=== PATIENT | female | born 1945 ===

== ENCOUNTER 2017-10-22 14:40 | Inpatient (IN) | payer MEDICARE ==
[2017-10-22] MEDS ORDERED: Sodium Chloride 0.9% 1,000 ML IV STA (15:54)
--- NOTE | 2017-10-22 15:57 | C.PDOC ---
History Of Present Illness 72 y/o F c PMHx HTN, hysterectomy p/w abdominal pain x 5 days. Pain is lower abdomen, severe, associated with nausea and fever to 102 at home. Patient was seen at [place] [facility] 4 days ago and found to have colitis and discharged on Cipro/ Flagyl but she states it has only worsened in severity. Denies chills, numbness , weakness, rash, chest pain. Time Seen by Provider: 10/22/17 15:40 Chief Complaint (Nursing): Abdominal Pain Past Medical History Vital Signs: Last Vital Signs Temp 99 F 10/22/17 14:58 Pulse 68 10/22/17 17:30 Resp 18 10/22/17 17:30 BP 159/77 H 10/22/17 17:30 Pulse Ox 96 10/22/17 17:30 - Medical History PMH: Depression, HTN Family History: States: No Known Family Hx - Social History Hx Alcohol Use: Yes Hx Substance Use: No - Immunization History Hx Tetanus Toxoid Vaccination: No Hx Influenza Vaccination: No Hx Pneumococcal Vaccination: No Review Of Systems Except As Marked, All Systems Reviewed And Found Negative. Cardiovascular: Negative for: Chest Pain Respiratory: Negative for: Shortness of Breath Physical Exam - Physical Exam Additional Physical Exam Comments: Constitutional: No acute distress. Head: Normocephalic. Atraumatic. Eyes: PERRL. ENT: Moist mucous membranes. Neck: Supple. Cardiovascular: Regular rate. Radial pulse 2+ bilaterally. Chest: No tenderness. Respiratory: Clear to auscultation bilaterally. GI: Lower abdominal tenderness with guarding. Back: No CVA tenderness. Musculoskeletal: No tenderness or swelling of extremities. Skin: No rash. Neurologic: Alert, no focal deficit. ED Course And Treatment - Laboratory Results Result Diagrams: 10/22/17 16:07 10/22/17 16:07 O2 Sat by Pulse Oximetry: 98 Medical Decision Making Medical Decision Making: Morphine and Zofran, will require admission for failure of outpatient therapy. EKG sinus rhythm 60 bpm, no ST/T wave changes. CXR no acute disease. Disposition Discussed With : Archana Hamlin - Disposition Disposition: HOSPITALIZED Disposition Time: 17:20 Condition: GUARDED - Clinical Impression Clinical Impression: Colitis, Failure of outpatient treatment
[2017-10-22 16:18] LABS: BASO % 0.3 % (0.0-2.0); EOS # 0.1 K/uL (0.0-0.7); EOS % 0.4 % (0.0-4.0); HEMOGLOBIN 13.4 g/dL (11.0-16.0); LYMPH % 8.6 % (20.0-40.0); MEAN CELL VOLUME 90.8 fL (81.0-99.0); MEAN CORPUSCULAR HEMOGLOBIN 31.9 pg (27.0-31.0); MEAN CORPUSCULAR HGB CONC 35.1 g/dL (33.0-37.0); MEAN PLATELET VOLUME 8.8 fL (7.2-11.7); MONO # 0.9 K/uL (0.0-0.8); NEUT # 9.5 K/uL (1.8-7.0); NEUT % 82.7 % (50.0-75.0); PLATELET COUNT 249 K/uL (130-400); RED CELL DISTRIBUTION WIDTH 13.3 % (11.5-14.5); WHITE BLOOD COUNT 11.5 K/uL (4.8-10.8)
[2017-10-22] MEDS ORDERED: Sodium Chloride 0.9% 1,000 ML ONE (16:21)
[2017-10-22] MEDS ORDERED: Morphine 4 MG/ML VIAL ONE ×2 (16:21→17:37)
[2017-10-22 16:25] LABS: ALB/GLOB RATIO 1.3 (1.0-2.1); ALBUMIN 4.3 g/dL (3.5-5.0); ALT/SGPT 25 U/L (9-52); AST/SGOT 27 U/L (14-36); BLOOD UREA NITROGEN 18 mg/dL (7-17); CALCIUM 9.7 mg/dl (8.6-10.4); GFR AFRICAN-AMERICAN > 60; GFR NON-AFRICAN AMERICAN > 60; LIPASE 61 U/L (23-300)
--- NOTE | 2017-10-22 16:38 | RAD ---
HISTORY: fever, abd pain COMPARISON: No prior. FINDINGS: LUNGS: The lungs are hyperinflated and there is peribronchial thickening with chronic changes in both lungs. No focal consolidation. PLEURA: No significant pleural effusion identified, no pneumothorax apparent. CARDIOVASCULAR: Normal. OSSEOUS STRUCTURES: No significant abnormalities. VISUALIZED UPPER ABDOMEN: Normal. OTHER FINDINGS: None. IMPRESSION: No active pulmonary disease. COPD.
[2017-10-22 16:58] LABS: SQUAMOUS EPITHIAL < 1 /hpf (0-5); URINE BILIRUBIN NEGATIVE (NEGATIVE); URINE BLOOD NEGATIVE (NEGATIVE); URINE CALCIUM OXALATE CRYSTALS OCC /hpf (<OCC); URINE CLARITY Clear (Clear); URINE COLOR Amber (YELLOW); URINE GLUCOSE (UA) NORMAL (Normal); URINE LEUKOCYTE ESTERASE NEG Leu/uL (Negative); URINE PROTEIN NEGATIVE (NEGATIVE)
[2017-10-22] MEDS ORDERED: Ciprofloxacin 400mg/200ml D5W 400 MG/200 ML BAG IVPB STA (16:59)
[2017-10-22 17:01] LABS: LYMPHOCYTE 5 % (20-40); MONOCYTE 4 % (0-10); NEUTROPHIL 91 % (50-75); PLATELET ESTIMATE NORMAL (NORMAL); TOTAL CELLS COUNTED 100
[2017-10-22] MEDS ORDERED: Ciprofloxacin 400mg/200ml D5W 400 MG/200 ML BAG IVPB ONE (17:21)
[2017-10-22] MEDS ORDERED: Potassium Chloride 20 mEq 100 ML ONE (17:21)
[2017-10-22] MEDS ORDERED: Iohexol 240 (50 ml) PO ONE (18:40)
--- NOTE | 2017-10-22 18:44 | CP.PCM.HP ---
Addendum entered and electronically signed by Keven Valentine 10/22/17 21:05: Colitis associated with diarrhea * F/u stool culture, Ova & Parasite and fecal leukocytes Original Note: <Keven Valentine - Last Filed: 10/22/17 20:33> History of Present Illness - History of Present Illness History of Present Illness: CC: Abdominal Pain HPI: Patient is a 72 year old female with past medical HTN and depression, who presents to the ED with her daughter with complaints of abdominal pain that started 2 weeks ago. Patient reports that her abdominal pain originated from the epigastric region and radiated to the lower abdomen B/ L (R>L). Patient describes her pain as a 10/10 (" feels like I am giving " ) with intermittent radiation to her lower back. Patient admits to associated symptoms of one episodes of vomit, intermittent nausea, 2 days of diarrhea, fever ( Tmax: 102 at home), chills and lower abdominal pressure upon urination that started on wednesday (10/17/17). Patient denies hematochezia, hematuria, recent travels, recent sickness or sick contact. Patient was seen on Wednesday, at [facility] and was discharge with the diagnosis of colitis with prescription for Cipro and flagyl. Patient states that her pain is consistent with no relief, hence the second ER visit. Code Status: Full code PMD: Dr. Archer PMHx: HTN and depression FHx: Father and Paternal Aunt: DM Sister: Ovarian cancer Medications: Norvasc 5mg PO daily, Lexpro 20mg PO daily Allergies: NKDA Social Hx: Lives alone, retired homemaker. Denies of current or former use of tobacco, alcohol or illicit drug Hilarioughlorenzo: Jyotsna: [phone] Present on Admission - Present on Admission Any Indicators Present on Admission: No Review of Systems - Constitutional Constitutional: Chills, Fever. absent: Fatigue, Headache, Increased Appetite, Weakness - EENT Ears: absent: Dizziness - Cardiovascular Cardiovascular: absent: Chest Pain, Diaphoresis, Dyspnea, Lightheadedness - Respiratory Respiratory: absent: Dyspnea, Dyspnea on Exertion, Wheezing, Chest Congestion - Gastrointestinal Gastrointestinal: Abdominal Pain, Diarrhea, Nausea, Vomiting. absent: Dyspepsia , Dysphagia, Hematemesis, Hematochezia - Genitourinary Genitourinary: Dysuria. absent: Difficulty Urinating, Flank Pain, Urinary Frequency, Urinary Hesitance, Voiding Freq/Small Amts - Musculoskeletal Musculoskeletal: absent: Back Pain - Psychiatric Psychiatric: Change in Appetite Past Patient History - Infectious Disease Hx of Infectious Diseases: None - Past Social History Smoking Status: Never Smoked - CARDIAC Hx Hypertension: Yes - PSYCHIATRIC Hx Depression: Yes Hx Substance Use: No - SURGICAL HISTORY Hx Hysterectomy: Yes - ANESTHESIA Hx Anesthesia: Yes Hx Anesthesia Reactions: No Hx Malignant Hyperthermia: No Meds Allergies/Adverse Reactions: Allergies Allergy/AdvReac Type Severity Reaction Status Date / Time No Known Allergies Allergy Verified 10/22/17 15:02 Physical Exam - Constitutional Appears: No Acute Distress - Head Exam Head Exam: ATRAUMATIC, NORMAL INSPECTION - Eye Exam Eye Exam: EOMI, Normal appearance - ENT Exam ENT Exam: Mucous Membranes Dry - Respiratory Exam Respiratory Exam: Clear to Auscultation Bilateral, NORMAL BREATHING PATTERN. absent: Prolonged Expiratory Phase, Rhonchi, Wheezes, Respiratory Distress - Cardiovascular Exam Cardiovascular Exam: REGULAR RHYTHM, +S1, +S2. absent: Systolic Murmur - GI/Abdominal Exam GI & Abdominal Exam: Guarding, Normal Bowel Sounds, Tenderness. absent: Diminished Bowel Sounds, Distended, Firm, Hyperactive Bowel Sounds, Hypoactive Bowel Sounds, Organomegaly Additional comments: Tenderness and guarding in the epigastric and lower abdominal pain (Right> Left) - Extremities Exam Extremities exam: Positive for: normal inspection. Negative for: calf tenderness - Neurological Exam Neurological exam: Alert, Oriented x3 - Psychiatric Exam Psychiatric exam: Normal Affect - Skin Skin Exam: Normal Color Results - Vital Signs Recent Vital Signs: Last Vital Signs Temp 99 F 10/22/17 14:58 Pulse 68 10/22/17 17:30 Resp 18 10/22/17 17:30 BP 159/77 H 10/22/17 17:30 Pulse Ox 98 10/22/17 17:40 - Labs Result Diagrams: 10/22/17 16:07 10/22/17 16:07 Labs: Laboratory Results - last 24 hr 10/22/17 10/22/17 10/22/17 16:07 16:07 16:38 WBC 11.5 H RBC 4.20 Hgb 13.4 Hct 38.1 MCV 90.8 MCH 31.9 H MCHC 35.1 RDW 13.3 Plt Count 249 MPV 8.8 Neut % (Auto) 82.7 H Lymph % (Auto) 8.6 L [place] % (Auto) 8.0 Eos % (Auto) 0.4 Baso % (Auto) 0.3 Neut # (Auto) 9.5 H Lymph # (Auto) 1.0 [place] # (Auto) 0.9 H Eos # (Auto) 0.1 Baso # (Auto) 0.0 Neutrophils % (Manual) 91 H Lymphocytes % (Manual) 5 L Monocytes % (Manual) 4 Platelet Estimate Normal RBC Morphology Normal Sodium 142 Potassium 3.0 L Chloride 98 Carbon Dioxide 32 H Anion Gap 15 BUN 18 H Creatinine 0.6 L Est GFR ( Amer) > 60 Est GFR (Non-Af Amer) > 60 Random Glucose 120 H Calcium 9.7 Total Bilirubin 0.9 AST 27 ALT 25 Alkaline Phosphatase 101 Total Protein 7.6 Albumin 4.3 Globulin 3.3 Albumin/Globulin Ratio 1.3 Lipase 61 Urine Color Ariela Urine Clarity Clear Urine pH 5.0 Ur Specific [place] 1.017 Urine Protein Negative Urine Glucose (UA) Normal Urine Ketones Negative Urine Blood Negative Urine Nitrate Positive H Urine Bilirubin Negative Urine Urobilinogen 4.0 H Ur Leukocyte Esterase Neg Urine WBC (Auto) 9 H Urine RBC (Auto) 5 H Ur Squamous Epith Cells < 1 Calcium Oxalate Crystal Occ H Assessment & Plan (1) Colitis Assessment and Plan: Imaging/Labs: * CT abdomen/Pelvis with contrast: Nonspecific colitis involving distal descending and rectosigmoid colon. Mural thickening of gastric antrum common nonspecific. Consider follow-up with upper endoscopy. No other significant abnormality. * F/u CT abdomen/Pelvis with PO contrast * Leukocytois Medications: * Cipro 400mg IV Q12H * Flagyl 500mg PO IV Q8H * Florastor 250mg PO BID * D5W 1/2 NS KCl 20meq * Morphine 2mg IV Q4H PRN Status: Acute (2) Hypertension Assessment and Plan: Home medication: Norvasc 5mg PO daily Will resume if BP becomes uncontrolled Status: Acute (3) Hypokalemia Assessment and Plan: On admission: 3.0 Mg 2+ WNL D5W 1/2 NS KCl 20meq X2 bags Continue to monitor with repeat CMP Status: Acute (4) Prophylactic measure Assessment and Plan: DVT: Lovenox 30mg SC daily All plans and management discussed with Dr. Gatica Status: Acute <ErwinMarichuy jernigan V - Last Filed: 10/23/17 14:21> Results - Vital Signs Recent Vital Signs: Last Vital Signs Temp 98.6 F 10/23/17 08:31 Pulse 73 10/23/17 08:31 Resp 20 10/23/17 08:31 BP 126/56 L 10/23/17 08:31 Pulse Ox 96 10/23/17 08:31 - Labs Result Diagrams: 10/23/17 06:41 10/23/17 06:41 Labs: Laboratory Results - last 24 hr 10/22/17 10/22/17 10/22/17 16:07 16:07 16:07 WBC 11.5 H RBC 4.20 Hgb 13.4 Hct 38.1 MCV 90.8 MCH 31.9 H MCHC 35.1 RDW 13.3 Plt Count 249 MPV 8.8 Neut % (Auto) 82.7 H Lymph % (Auto) 8.6 L [place] % (Auto) 8.0 Eos % (Auto) 0.4 Baso % (Auto) 0.3 Neut # (Auto) 9.5 H Lymph # (Auto) 1.0 [place] # (Auto) 0.9 H Eos # (Auto) 0.1 Baso # (Auto) 0.0 Neutrophils % (Manual) 91 H Band Neutrophils % Lymphocytes % (Manual) 5 L Reactive Lymphs % Monocytes % (Manual) 4 Platelet Estimate Normal RBC Morphology Normal Sodium 142 Potassium 3.0 L Chloride 98 Carbon Dioxide 32 H Anion Gap 15 BUN 18 H Creatinine 0.6 L Est GFR ( Amer) > 60 Est GFR (Non-Af Amer) > 60 Random Glucose 120 H Calcium 9.7 Magnesium 2.2 Total Bilirubin 0.9 AST 27 ALT 25 Alkaline Phosphatase 101 Total Protein 7.6 Albumin 4.3 Globulin 3.3 Albumin/Globulin Ratio 1.3 Lipase 61 Urine Color Urine Clarity Urine pH Ur Specific [place] Urine Protein Urine Glucose (UA) Urine Ketones Urine Blood Urine Nitrate Urine Bilirubin Urine Urobilinogen Ur Leukocyte Esterase Urine WBC (Auto) Urine RBC (Auto) Ur Squamous Epith Cells Calcium Oxalate Crystal 10/22/17 10/23/17 10/23/17 16:38 06:41 06:41 WBC 9.6 RBC 3.72 L Hgb 11.5 Hct 33.5 L MCV 90.0 MCH 30.9 MCHC 34.3 RDW 13.3 Plt Count 226 MPV 9.0 Neut % (Auto) 82.8 H Lymph % (Auto) 6.8 L [place] % (Auto) 9.6 Eos % (Auto) 0.5 Baso % (Auto) 0.3 Neut # (Auto) 8.0 H Lymph # (Auto) 0.7 L [place] # (Auto) 0.9 H Eos # (Auto) 0.0 Baso # (Auto) 0.0 Neutrophils % (Manual) 78 H Band Neutrophils % 5 H Lymphocytes % (Manual) 7 L Reactive Lymphs % 1 H Monocytes % (Manual) 9 Platelet Estimate Normal RBC Morphology Normal Sodium 139 Potassium 3.1 L Chloride 102 Carbon Dioxide 29 Anion Gap 11 BUN 7 Creatinine 0.4 L Est GFR ( Amer) > 60 Est GFR (Non-Af Amer) > 60 Random Glucose 121 H Calcium 8.1 L Magnesium Total Bilirubin 0.4 AST 16 ALT 27 Alkaline Phosphatase 86 Total Protein 5.5 L Albumin 2.9 L D Globulin 2.6 Albumin/Globulin Ratio 1.1 Lipase Urine Color Ariela Urine Clarity Clear Urine pH 5.0 Ur Specific [place] 1.017 Urine Protein Negative Urine Glucose (UA) Normal Urine Ketones Negative Urine Blood Negative Urine Nitrate Positive H Urine Bilirubin Negative Urine Urobilinogen 4.0 H Ur Leukocyte Esterase Neg Urine WBC (Auto) 9 H Urine RBC (Auto) 5 H Ur Squamous Epith Cells < 1 Calcium Oxalate Crystal Occ H Attending/Attestation - Attestation I have personally seen and examined this patient.: Yes I have fully participated in the care of the patient.: Yes I have reviewed all pertinent clinical information: Yes Notes (Text): this is late computer entry for 10/22/17. Patient seen, examined and case discussed with day-time resident. Patient seen in Hallway Bed [facility] in [facility]. Patient seen with daughter at bedside. She reports 2 week hx of abdominal pain and associated diarrhea. She went to [place] [facility], where she completed CT scan and was discharged on PO medications. Patient reports she tried PO antibiotics for 2 days but abdominal pain worsened. She also reports dysuria since Wednesday as well. I also spoke with Dr. Archer, her PMD on admission as well. Admitting orders discussed with resident at time of admission. Assessment/Plan (1) Colitis Abdominal Pain Assessment and Plan: * Imaging/Labs: * CT abdomen/Pelvis with contrast (10/18/17): Nonspecific colitis involving distal descending and rectosigmoid colon. Mural thickening of gastric antrum common nonspecific. Consider follow-up with upper endoscopy. No other significant abnormality. * F/u CT abdomen/Pelvis with PO and IV contrast Medications: * Cipro 400mg IV Q12H * Flagyl 500mg PO IV Q8H * Florastor 250mg PO BID * D5W 1/2 NS KCl 20meq * Morphine 2mg IV Q4H PRN * Stool studies ordered: Stool culture, leukocytes, ova and parasite Status: Acute (2) Hypertension Assessment and Plan: * Home medication: Norvasc 5mg PO daily * Will hold BP med at this tennille Status: Acute (3) Hypokalemia Assessment and Plan: * Attribute to GI losses: diarrhea * On admission: 3.0 and Mg 2+ WNL * D5W 1/2 NS KCl 20meq X2 bags * Continue to monitor with repeat CMP Status: Acute (4) Dysuria Assessment and Plan: * Urine culture pending * Patient is on IV abx (5) Prophylactic measure Assessment and Plan: * DVT: Lovenox 30mg SC daily * Zofran 4mg IV Q6H PRN nausea/vomitting * Florastor 250mg PO BID * Morphine 2mg IV Q4H PRN severe pain Status: Acute
[2017-10-22] MEDS ORDERED: Lactated Ringer's 1,000 ML IV SCH (18:45)
[2017-10-22] MEDS ORDERED: Iohexol 240 (50 ml) ONE (18:50)
[2017-10-22] MEDS: Potassium Ch 20mEq in D5-1/2NS 1,000 ML IV SCH (20:50)
[2017-10-22] MEDS ORDERED: Iodixanol 320 MG/ML 100 ML BOTTLE IV ONE (20:52)
[2017-10-23 01:22] VITALS: RESP 20
[2017-10-23 06:53] LABS: BASO % 0.3 % (0.0-2.0); EOS % 0.5 % (0.0-4.0); HEMOGLOBIN 11.5 g/dL (11.0-16.0); LYMPH # 0.7 K/uL (1.0-4.3); LYMPH % 6.8 % (20.0-40.0); MEAN CORPUSCULAR HEMOGLOBIN 30.9 pg (27.0-31.0); MEAN CORPUSCULAR HGB CONC 34.3 g/dL (33.0-37.0); MONO # 0.9 K/uL (0.0-0.8); MONO % 9.6 % (0.0-10.0); NEUT % 82.8 % (50.0-75.0); PLATELET COUNT 226 K/uL (130-400); RBC 3.72 Mil/uL (3.80-5.20); RED CELL DISTRIBUTION WIDTH 13.3 % (11.5-14.5); WHITE BLOOD COUNT 9.6 K/uL (4.8-10.8)
[2017-10-23 07:08] LABS: ALB/GLOB RATIO 1.1 (1.0-2.1); ALBUMIN 2.9 g/dL (3.5-5.0); ALT/SGPT 27 U/L (9-52); AST/SGOT 16 U/L (14-36); BLOOD UREA NITROGEN 7 mg/dL (7-17); CALCIUM 8.1 mg/dl (8.6-10.4); GFR AFRICAN-AMERICAN > 60; GFR NON-AFRICAN AMERICAN > 60
--- NOTE | 2017-10-23 08:46 | CP.PCM.PN ---
<FarhanavalerieShashi - Last Filed: 10/23/17 18:16> Subjective - Date & Time of Evaluation Date of Evaluation: 10/23/17 Time of Evaluation: 07:35 - Subjective Subjective: Medicine Progress Note Patient seen and examined at bedside. No acute overnight events per nursing. Patient with mild diffuse abdominal pain. Pain well controlled with morphine. She is NPO with no BM in the last 2d. Denies f/c, chest pain, SOB, n/v, constipation, burning on urination, change in urinary stream, or any additional acute complaints. Objective - Vital Signs/Intake and Output Vital Signs (last 24 hours): Temp Pulse Resp BP Pulse Ox 98.6 F 73 20 126/56 L 96 10/23/17 08:31 10/23/17 08:31 10/23/17 08:31 10/23/17 08:31 10/23/17 08:31 Intake and Output: 10/23/17 10/23/17 06:59 18:59 Intake Total 600 Balance 600 - Medications Medications: Current Medications Enoxaparin Sodium (Lovenox) 30 mg SC DAILY [facility] Ciprofloxacin (Cipro 400mg/200ml Dsw) 400 mg in 200 mls @ 133 mls/hr IVPB Q12H [facility] PRN Reason: Protocol Metronidazole 250 mg/ (Miscellaneous) 50 mls @ 100 mls/hr IVPB Q8 [facility] PRN Reason: Protocol Potassium Chloride/Dextrose/Sod Cl (Potassium Chl 20 Meq In D5-1/2ns) 1,000 mls @ 75 mls/hr IV .[id number] [facility] Stop: 10/23/17 22:39 Last Admin: 10/22/17 20:50 Dose: 75 mls/hr Morphine Sulfate (Morphine) 2 mg IVP Q4 PRN PRN Reason: Pain, severe (8-10) Ondansetron HCl (Zofran Inj) 4 mg IVP Q6 PRN PRN Reason: Nausea/Vomiting Saccharomyces Boulardii (Florastor) 250 mg PO BID [facility] - Labs Labs: 10/23/17 06:41 10/23/17 06:41 - Additional Findings Additional findings: - Constitutional Appears: No Acute Distress - Head Exam Head Exam: ATRAUMATIC, NORMAL INSPECTION - Eye Exam Eye Exam: EOMI, Normal appearance - ENT Exam ENT Exam: Mucous Membranes Dry - Respiratory Exam Respiratory Exam: Clear to Auscultation Bilateral, NORMAL BREATHING PATTERN. absent: Prolonged Expiratory Phase, Rhonchi, Wheezes, Respiratory Distress - Cardiovascular Exam Cardiovascular Exam: REGULAR RHYTHM, +S1, +S2. absent: Systolic Murmur - GI/Abdominal Exam GI & Abdominal Exam: Normal Bowel Sounds, Tenderness (mild epigastric TTP, no guarding today). absent: Diminished Bowel Sounds, Distended, Firm, Organomegaly - Extremities Exam Extremities exam: Positive for: normal inspection. Negative for: calf tenderness - Neurological Exam Neurological exam: Alert, Oriented x3 - Psychiatric Exam Psychiatric exam: Normal Affect - Skin Skin Exam: Normal Color Assessment and Plan - Assessment and Plan (Free Text) Assessment: Colitis Assessment and Plan: 10/23: WBC dec to 9.6 f/u stool occult f/u ova parasite f/u fecal leukocyte f/u Blood cult. Imaging/Labs: * 10/23: CT abd/pelv w/PO+IV contrast - colitis vs diverticulitis of sigmoid colon, no perf, no abscess, no obstruction. see full report. * CT abdomen/Pelvis with contrast: Nonspecific colitis involving distal descending and rectosigmoid colon. Mural thickening of gastric antrum common nonspecific. Consider follow-up with upper endoscopy. No other significant abnormality. Medications: * Cipro 400mg IV Q12H * Flagyl 500mg PO IV Q8H * Florastor 250mg PO BID * D5W 1/2 NS KCl 20meq * Morphine 2mg IV Q4H PRN Status: Acute Urinary Tract Infection Assessment and Plan: 10/23: Urine Culture negative Cipro 400mg IVPB Status: Acute Hypertension Assessment and Plan: Home medication: Norvasc 5mg PO daily Will resume if BP becomes uncontrolled Status: Acute Electrolyte abnormality Assessment and Plan: 10/23: Hypokalemia, K3.1 -> KCL 20meq... K3.4 -> KCl 10meq x2... f/u K in am. 10/22: Hypokalemia K3.0 -> D5W 1/2 NS KCl 20meq X2 bags Continue to monitor with repeat CMP Status: Acute Prophylactic measure Assessment and Plan: DVT: Lovenox 30mg SC daily All plans and management discussed with Dr. Gatica <Marichuy Gatica V - Last Filed: 10/23/17 19:26> Objective - Vital Signs/Intake and Output Vital Signs (last 24 hours): Temp Pulse Resp BP Pulse Ox 99.4 F 72 20 132/74 96 10/23/17 16:00 10/23/17 16:00 10/23/17 16:00 10/23/17 16:00 10/23/17 16:00 - Medications Medications: Current Medications Enoxaparin Sodium (Lovenox) 30 mg SC DAILY [facility] Last Admin: 10/23/17 09:18 Dose: 30 mg Ciprofloxacin (Cipro 400mg/200ml Dsw) 400 mg in 200 mls @ 133 mls/hr IVPB Q12H [facility] PRN Reason: Protocol Last Admin: 10/23/17 09:22 Dose: 133 mls/hr Metronidazole 250 mg/ (Miscellaneous) 50 mls @ 100 mls/hr IVPB Q8 [facility] PRN Reason: Protocol Last Admin: 10/23/17 14:33 Dose: 100 mls/hr Potassium Chloride/Dextrose/Sod Cl (Potassium Chl 20 Meq In D5-1/2ns) 1,000 mls @ 75 mls/hr IV .[id number] [facility] Stop: 10/23/17 22:39 Last Admin: 10/23/17 09:22 Dose: 75 mls/hr Potassium Chloride (Potassium Chloride 10 Meq/100 Ml) 10 meq in 100 mls @ 100 mls/hr IVPB Q3H [facility] Stop: 10/23/17 22:29 Morphine Sulfate (Morphine) 2 mg IVP Q4 PRN PRN Reason: Pain, severe (8-10) Ondansetron HCl (Zofran Inj) 4 mg IVP Q6 PRN PRN Reason: Nausea/Vomiting Pneumococcal Polyvalent Vaccine (Pneumovax 23 Vaccine) 0.5 ml IM .ONCE ONE Stop: 10/25/17 10:01 Saccharomyces Boulardii (Florastor) 250 mg PO BID [facility] Last Admin: 10/23/17 09:18 Dose: 250 mg - Labs Labs: 10/23/17 06:41 10/23/17 16:31 Attending/Attestation - Attestation I have personally seen and examined this patient.: Yes I have fully participated in the care of the patient.: Yes I have reviewed all pertinent clinical information, including history, physical exam and plan: Yes Notes (Text): Patient seen, examined, and case discussed with medical insurance verifier. Patient seen during morning rounds. Patient reports abdominal pain has improved. Patient reports abdominal pain has improved with morphine when necessary. Patient since being admitted has not had any diarrheal bowel movements. Will need to continue to monitor to see if stool is forming or not. Patient CT which she completed last night has not been officially read at during the time of my rounds. He'll follow-up to see if there is any changes. Electrolytes repleted. Assessment/Plan (1) Colitis Abdominal Pain Assessment and Plan: * Imaging/Labs: * CT abdomen/Pelvis with contrast (10/18/17): Nonspecific colitis involving distal descending and rectosigmoid colon. Mural thickening of gastric antrum common nonspecific. Consider follow-up with upper endoscopy. No other significant abnormality. * F/u CT abdomen/Pelvis with PO and IV contrast: Findings may represent nonspecific infectious\inflammatory segmental colitis or diverticulitis involving the sigmoid colon or rectosigmoid junction no microperforation or abscess. Constipation no bowel contraption. * We'll advance to liquid diet. Medications: * Cipro 400mg IV Q12H * Flagyl 500mg PO IV Q8H * Florastor 250mg PO BID * D5W 1/2 NS KCl 20meq * Morphine 2mg IV Q4H PRN * Stool studies ordered: Stool culture, leukocytes, ova and parasite Status: Acute (2) Hypertension Assessment and Plan: * Home medication: Norvasc 5mg PO daily * Will hold BP med at this tennille Status: Acute (3) Hypokalemia Assessment and Plan: * Attribute to GI losses: diarrhea * On admission: 3.0 and Mg 2+ WNL * D5W 1/2 NS KCl 20meq X2 bags * Continue to monitor with repeat CMP Status: Acute (4) Dysuria Assessment and Plan: * Urine culture pending * Patient is on IV abx (5) Prophylactic measure Assessment and Plan: * DVT: Lovenox 30mg SC daily * Zofran 4mg IV Q6H PRN nausea/vomitting * Florastor 250mg PO BID * Morphine 2mg IV Q4H PRN severe pain Status: Acute
[2017-10-23] MEDS: Saccharomyces Boulardi 250 mg Cap PO SCH ×2 (09:18→18:00)
[2017-10-23] MEDS: Enoxaparin 30 mg Syringe SC SCH (09:18)
[2017-10-23] MEDS: metroNIDAZOLE IV 500 mg/100 ml 250 MG in Premixed IV 1 EA IVPB SCH ×3 (09:20→21:19)
[2017-10-23] MEDS: Potassium Ch 20mEq in D5-1/2NS 1,000 ML IV SCH (09:22)
[2017-10-23] MEDS: Ciprofloxacin 400mg/200ml D5W 400 MG/200 ML BAG IVPB SCH ×2 (09:22→21:17)
[2017-10-23 09:32] LABS: BANDS 5 % (0-2); LYMPHOCYTE 7 % (20-40); MONOCYTE 9 % (0-10); NEUTROPHIL 78 % (50-75); REACTIVE LYMPHOCYTES 1 % (0-0); TOTAL CELLS COUNTED 100
[2017-10-23 09:33] LABS: PLATELET ESTIMATE NORMAL (NORMAL)
--- NOTE | 2017-10-23 15:35 | CT ---
PROCEDURE: CT Abdomen and Pelvis with contrast HISTORY: Abdominal pain COMPARISON: None. TECHNIQUE: CT scan of the abdomen and pelvis was performed after administration of intravenous contrast. Oral contrast was administered. Coronal and sagittal reformatted images were obtained. Contrast dose: 100 mL Visipaque Radiation dose: Total exam DLP = 218.22 mGy-cm. This CT exam was performed using one or more of the following dose reduction techniques: Automated exposure control, adjustment of the mA and/or kV according to patient size, and/or use of iterative reconstruction technique. FINDINGS: LOWER THORAX: There is subsegmental atelectasis in the lower lobes. LIVER: Normal in size with homogeneous enhancement. No gross lesion or ductal dilatation. GALLBLADDER AND BILE DUCTS: No calcified gallstones. PANCREAS: Normal in size with homogeneous enhancement. No gross lesion or ductal dilatation. SPLEEN: Normal in size and appearance. ADRENALS: No discrete nodule. No mass. KIDNEYS AND URETERS: Normal in size with homogeneous enhancement. No hydronephrosis. No solid mass. VASCULATURE: No aortic aneurysm. BOWEL: The small bowel loops are mildly dilated. There is large amount of stool in the colon. There is severe circumferential mural thickening in the sigmoid colon and at the rectosigmoid junction. No bowel obstruction. APPENDIX: Normal appendix. PERITONEUM: No free fluid. No free air. LYMPH NODES: No enlarged lymph nodes. BLADDER: Unremarkable. REPRODUCTIVE: The uterus is surgically absent. BONES: No acute fracture. Within normal limits for the patient's age. OTHER FINDINGS: None. IMPRESSION: Findings may represent nonspecific infectious/ inflammatory segmental colitis or diverticulitis involving the sigmoid colon and rectosigmoid junction. No micro perforation or abscess. Constipation. No bowel obstruction. A preliminary report was provided by [facility].
[2017-10-23 17:15] LABS: BLOOD UREA NITROGEN 5 mg/dL (7-17); CALCIUM 8.4 mg/dl (8.6-10.4); GFR AFRICAN-AMERICAN > 60; GFR NON-AFRICAN AMERICAN > 60
[2017-10-24] MEDS: metroNIDAZOLE IV 500 mg/100 ml 250 MG in Premixed IV 1 EA IVPB SCH ×3 (05:01→21:48)
[2017-10-24 08:53] LABS: BASO # 0.1 K/uL (0.0-0.2); BASO % 0.7 % (0.0-2.0); EOS # 0.1 K/uL (0.0-0.7); EOS % 0.9 % (0.0-4.0); HEMOGLOBIN 12.1 g/dL (11.0-16.0); LYMPH % 11.6 % (20.0-40.0); MEAN CELL VOLUME 90.9 fL (81.0-99.0); MEAN CORPUSCULAR HEMOGLOBIN 31.7 pg (27.0-31.0); MEAN CORPUSCULAR HGB CONC 34.9 g/dL (33.0-37.0); MEAN PLATELET VOLUME 9.4 fL (7.2-11.7); MONO # 0.9 K/uL (0.0-0.8); MONO % 10.2 % (0.0-10.0); NEUT # 6.6 K/uL (1.8-7.0); NEUT % 76.6 % (50.0-75.0); RBC 3.82 Mil/uL (3.80-5.20); RED CELL DISTRIBUTION WIDTH 13.2 % (11.5-14.5); WHITE BLOOD COUNT 8.6 K/uL (4.8-10.8)
[2017-10-24 09:13] LABS: ALBUMIN 2.9 g/dL (3.5-5.0); ALT/SGPT 27 U/L (9-52); AST/SGOT 15 U/L (14-36); BLOOD UREA NITROGEN 6 mg/dL (7-17); CALCIUM 8.6 mg/dl (8.6-10.4); GFR AFRICAN-AMERICAN > 60; GFR NON-AFRICAN AMERICAN > 60
[2017-10-24] MEDS: Saccharomyces Boulardi 250 mg Cap PO SCH ×2 (09:51→18:05)
[2017-10-24] MEDS: Enoxaparin 30 mg Syringe SC SCH (09:51)
--- NOTE | 2017-10-24 09:56 | CP.PCM.PN ---
Subjective - Date & Time of Evaluation Date of Evaluation: 10/24/17 Time of Evaluation: 09:50 - Subjective Subjective: Medical Attending Note: Patient seen and examined at bedside. patient denies headache, denies chest pain, denies cough, denies shortness of breathe, reports abdominal pain has improved to 3/10 on pain scale, limited to suprapubic area only. Patient reports stool is formed today. Patient has provided a stool sample today. Patient reports she is belching. Patient is a picky eater per daughter but was able to tolerate oatmeal and yogurt this morning. Objective - Vital Signs/Intake and Output Vital Signs (last 24 hours): Temp Pulse Resp BP Pulse Ox 98.5 F 74 20 97/55 L 95 10/24/17 08:29 10/24/17 08:29 10/24/17 08:29 10/24/17 08:29 10/24/17 08:29 Intake and Output: 10/24/17 10/24/17 06:59 18:59 Intake Total 1000 600 Balance 1000 600 - Medications Medications: Current Medications Enoxaparin Sodium (Lovenox) 30 mg SC DAILY [facility] Last Admin: 10/24/17 09:51 Dose: 30 mg Ciprofloxacin (Cipro 400mg/200ml Dsw) 400 mg in 200 mls @ 133 mls/hr IVPB Q12H [facility] PRN Reason: Protocol Last Admin: 10/23/17 21:17 Dose: 133 mls/hr Metronidazole 250 mg/ (Miscellaneous) 50 mls @ 100 mls/hr IVPB Q8 [facility] PRN Reason: Protocol Last Admin: 10/24/17 05:01 Dose: 100 mls/hr Morphine Sulfate (Morphine) 2 mg IVP Q4 PRN PRN Reason: Pain, severe (8-10) Ondansetron HCl (Zofran Inj) 4 mg IVP Q6 PRN PRN Reason: Nausea/Vomiting Pneumococcal Polyvalent Vaccine (Pneumovax 23 Vaccine) 0.5 ml IM .ONCE ONE Stop: 10/25/17 10:01 Saccharomyces Boulardii (Florastor) 250 mg PO BID [facility] Last Admin: 10/24/17 09:51 Dose: 250 mg Simethicone (Mylicon Liq) 40 mg PO QID [place] - Labs Labs: 10/24/17 08:40 10/24/17 08:40 - Constitutional Appears: Non-toxic, No Acute Distress - Head Exam Head Exam: NORMAL INSPECTION - Eye Exam Eye Exam: EOMI Pupil Exam: NORMAL ACCOMODATION - ENT Exam ENT Exam: Mucous Membranes Moist - Respiratory Exam Respiratory Exam: Clear to Ausculation Bilateral, NORMAL BREATHING PATTERN. absent: Rhonchi, Wheezes - Cardiovascular Exam Cardiovascular Exam: REGULAR RHYTHM, +S1, +S2 - GI/Abdominal Exam GI & Abdominal Exam: Distended (improved), Soft, Normal Bowel Sounds. absent: Firm, Guarding, Rigid, Rebound Additional comments: +suprapubic tenderness - Extremities Exam Extremities Exam: absent: Pedal Edema, Tenderness - Neurological Exam Neurological Exam: Alert, Awake, Oriented x3 Neuro motor strength exam: Left Upper Extremity: 5, Right Upper Extremity: 5, Left Lower Extremity: 5, Right Lower Extremity: 5 - Psychiatric Exam Psychiatric exam: Normal Affect, Normal Mood - Skin Skin Exam: Dry, Normal Color, Warm Assessment and Plan (1) Colitis Status: Acute (2) Hypertension Status: Acute (3) Hypokalemia Status: Acute (4) Urinary tract infection Status: Acute (5) Failure of outpatient treatment Status: Acute (6) Prophylactic measure Status: Acute Attending/Attestation - Attestation I have personally seen and examined this patient.: Yes I have fully participated in the care of the patient.: Yes I have reviewed all pertinent clinical information, including history, physical exam and plan: Yes Notes (Text): Assessment/Plan (1) Colitis Abdominal Pain Assessment and Plan: * Imaging/Labs: * CT abdomen/Pelvis with contrast (10/18/17): Nonspecific colitis involving distal descending and rectosigmoid colon. Mural thickening of gastric antrum common nonspecific. Consider follow-up with upper endoscopy. No other significant abnormality. * F/u CT abdomen/Pelvis with PO and IV contrast: Findings may represent nonspecific infectious\inflammatory segmental colitis or diverticulitis involving the sigmoid colon or rectosigmoid junction no microperforation or abscess. Constipation no bowel contraption. * We'll advance to regular diet todya. Medications: * Cipro 400mg IV Q12H (active since 10/22/17) * Flagyl 500mg PO IV Q8H (active since 10/22/17) * Florastor 250mg PO BID * D5W 1/2 NS KCl 20meq * Morphine 2mg IV Q4H PRN * Stool studies ordered: Stool culture, leukocytes, ova and parasite-->collected Status: Acute (2) Hypertension Assessment and Plan: * Home medication: Norvasc 5mg PO daily * Will hold BP med at this tennille Status: Acute (3) Hypokalemia Assessment and Plan: * Attribute to GI losses: diarrhea * replete * Continue to monitor with repeat CMP Status: Acute (4) Dysuria Assessment and Plan: * Urine culture: no growth * Patient is on IV abx (5) Prophylactic measure Assessment and Plan: * DVT: Lovenox 30mg SC daily * Zofran 4mg IV Q6H PRN nausea/vomitting * Florastor 250mg PO BID * Morphine 2mg IV Q4H PRN severe pain Status: Acute Will provide patient supportive measure including simethicone to reduce gas pains, advance diet, replete electrolyte. patient will need antibiotic on discharge and will need to f/u with her GI in 6-8 weeks for possible repeat colonoscopy. Patient has a private GI doctor but does not come here. Patient's bowel movement has improved to more form but is in pain still. We will need to achieve adequate pain control as we advance diet.
[2017-10-24] MEDS: Ciprofloxacin 400mg/200ml D5W 400 MG/200 ML BAG IVPB SCH ×2 (10:00→21:15)
[2017-10-24] MEDS ORDERED: Sodium Chloride 0.9% 1,000 ML IV ONE (10:00)
[2017-10-24] MEDS: Simethicone 40 mg/0.6 ml Liquid (30 ml) PO SCH ×4 (11:00→21:48)
[2017-10-25] MEDS: metroNIDAZOLE IV 500 mg/100 ml 250 MG in Premixed IV 1 EA IVPB SCH (05:21)
[2017-10-25 06:50] LABS: BASO % 0.7 % (0.0-2.0); EOS # 0.1 K/uL (0.0-0.7); EOS % 2.2 % (0.0-4.0); HEMOGLOBIN 10.7 g/dL (11.0-16.0); LYMPH # 1.1 K/uL (1.0-4.3); LYMPH % 17.3 % (20.0-40.0); MEAN CELL VOLUME 90.7 fL (81.0-99.0); MEAN CORPUSCULAR HGB CONC 34.1 g/dL (33.0-37.0); MEAN PLATELET VOLUME 9.1 fL (7.2-11.7); MONO # 0.5 K/uL (0.0-0.8); MONO % 7.9 % (0.0-10.0); NEUT # 4.7 K/uL (1.8-7.0); NEUT % 71.9 % (50.0-75.0); NRBC % 0.1 % (0.0-2.0); RBC 3.47 Mil/uL (3.80-5.20); RED CELL DISTRIBUTION WIDTH 13.2 % (11.5-14.5); WHITE BLOOD COUNT 6.5 K/uL (4.8-10.8)
[2017-10-25 07:37] VITALS: BP 102/61; PULSE 61; TEMP 98.1; O2SAT 95
[2017-10-25 07:40] LABS: ALBUMIN 2.6 g/dL (3.5-5.0); ALT/SGPT 26 U/L (9-52); AST/SGOT 23 U/L (14-36); BLOOD UREA NITROGEN 10 mg/dL (7-17); CALCIUM 8.1 mg/dl (8.6-10.4); GFR AFRICAN-AMERICAN > 60; GFR NON-AFRICAN AMERICAN > 60
[2017-10-25] MEDS: Enoxaparin 30 mg Syringe SC SCH (09:48)
[2017-10-25] MEDS: Saccharomyces Boulardi 250 mg Cap PO SCH (09:48)
[2017-10-25] MEDS: Ciprofloxacin 400mg/200ml D5W 400 MG/200 ML BAG IVPB SCH (09:52)
[2017-10-25] MEDS ORDERED: Pneumococcal 23-Valent Vaccine IM ONE (10:00)
[2017-10-25] MEDS ORDERED: Simethicone 80 mg Chewtab PO SCH (10:15)
[2017-10-25] MEDS: Simethicone 40 mg/0.6 ml Liquid (30 ml) PO SCH (11:00)
--- NOTE | 2017-10-25 11:06 | CP.PCM.PCO ---
Physician Communication Note - Physician Communication Note Physician Communication Note: Please see above.
--- NOTE | 2017-10-25 12:16 | CP.PCM.DIS ---
Provider - Provider Date of Admission: 10/22/17 16:58 Attending physician: Archana Hamlin MD Time Spent in preparation of Discharge (in minutes): 45 Diagnosis - Discharge Diagnosis (1) Colitis Status: Acute (2) Hypertension Status: Chronic (3) Hypokalemia Status: Acute (4) Prophylactic measure Status: Acute Hospital Course - Lab Results Lab Results: Micro Results 10/22/17 17:13 Blood-Venous Blood Culture - Preliminary NO GROWTH AFTER 48 HOURS 10/22/17 16:00 Blood-Venous Blood Culture - Preliminary NO GROWTH AFTER 48 HOURS 10/24/17 10:00 Stool Ova and Parasite Concentrate Exam - Final 10/22/17 16:38 Urine,Clean Catch Urine Culture - Final No Growth (<1,000 CFU/ML) Most Recent Lab Values WBC 6.5 K/uL (4.8-10.8) 10/25/17 06:35 RBC 3.47 Mil/uL (3.80-5.20) L 10/25/17 06:35 Hgb 10.7 g/dL (11.0-16.0) L 10/25/17 06:35 Hct 31.5 % (34.0-47.0) L 10/25/17 06:35 MCV 90.7 fL (81.0-99.0) 10/25/17 06:35 MCH 31.0 pg (27.0-31.0) 10/25/17 06:35 MCHC 34.1 g/dL (33.0-37.0) 10/25/17 06:35 RDW 13.2 % (11.5-14.5) 10/25/17 06:35 Plt Count 253 K/uL (130-400) 10/25/17 06:35 MPV 9.1 fL (7.2-11.7) 10/25/17 06:35 Neut % (Auto) 71.9 % (50.0-75.0) 10/25/17 06:35 Lymph % (Auto) 17.3 % (20.0-40.0) L 10/25/17 06:35 [place] % (Auto) 7.9 % (0.0-10.0) 10/25/17 06:35 Eos % (Auto) 2.2 % (0.0-4.0) 10/25/17 06:35 Baso % (Auto) 0.7 % (0.0-2.0) 10/25/17 06:35 Neut # (Auto) 4.7 K/uL (1.8-7.0) 10/25/17 06:35 Lymph # (Auto) 1.1 K/uL (1.0-4.3) 10/25/17 06:35 [place] # (Auto) 0.5 K/uL (0.0-0.8) 10/25/17 06:35 Eos # (Auto) 0.1 K/uL (0.0-0.7) 10/25/17 06:35 Baso # (Auto) 0.0 K/uL (0.0-0.2) 10/25/17 06:35 Neutrophils % (Manual) 78 % (50-75) H 10/23/17 06:41 Band Neutrophils % 5 % (0-2) H 10/23/17 06:41 Lymphocytes % (Manual) 7 % (20-40) L 10/23/17 06:41 Reactive Lymphs % 1 % (0-0) H 10/23/17 06:41 Monocytes % (Manual) 9 % (0-10) 10/23/17 06:41 Platelet Estimate Normal (NORMAL) 10/23/17 06:41 RBC Morphology Normal 10/23/17 06:41 Sodium 142 mmol/L (132-148) 10/25/17 06:35 Potassium 3.6 mmol/L (3.6-5.2) 10/25/17 06:35 Chloride 108 mmol/L (98-107) H 10/25/17 06:35 Carbon Dioxide 26 mmol/L (22-30) 10/25/17 06:35 Anion Gap 11 (10-20) 10/25/17 06:35 BUN 10 mg/dL (7-17) 10/25/17 06:35 Creatinine 0.5 mg/dL (0.7-1.2) L 10/25/17 06:35 Est GFR ( Amer) > 60 10/25/17 06:35 Est GFR (Non-Af Amer) > 60 10/25/17 06:35 Random Glucose 105 mg/dL (65-105) 10/25/17 06:35 Calcium 8.1 mg/dl (8.6-10.4) L 10/25/17 06:35 Phosphorus 3.1 mg/dL (2.5-4.5) 10/25/17 06:35 Magnesium 2.2 mg/dL (1.6-2.3) 10/25/17 06:35 Total Bilirubin 0.5 mg/dL (0.2-1.3) 10/25/17 06:35 AST 23 U/L (14-36) 10/25/17 06:35 ALT 26 U/L (9-52) 10/25/17 06:35 Alkaline Phosphatase 73 U/L (38-126) 10/25/17 06:35 Total Protein 5.3 g/dL (6.3-8.3) L 10/25/17 06:35 Albumin 2.6 g/dL (3.5-5.0) L 10/25/17 06:35 Globulin 2.6 gm/dL (2.2-3.9) 10/25/17 06:35 Albumin/Globulin Ratio 1.0 (1.0-2.1) 10/25/17 06:35 Lipase 61 U/L (23-300) 10/22/17 16:07 Urine Color Ariela (YELLOW) 10/22/17 16:38 Urine Clarity Clear (Clear) 10/22/17 16:38 Urine pH 5.0 (5.0-8.0) 10/22/17 16:38 Ur Specific [place] 1.017 (1.003-1.030) 10/22/17 16:38 Urine Protein Negative mg/dL (NEGATIVE) 10/22/17 16:38 Urine Glucose (UA) Normal mg/dL (Normal) 10/22/17 16:38 Urine Ketones Negative mg/dL (NEGATIVE) 10/22/17 16:38 Urine Blood Negative (NEGATIVE) 10/22/17 16:38 Urine Nitrate Positive (NEGATIVE) H 10/22/17 16:38 Urine Bilirubin Negative (NEGATIVE) 10/22/17 16:38 Urine Urobilinogen 4.0 mg/dL (0.2-1.0) H 10/22/17 16:38 Ur Leukocyte Esterase Neg [place]/uL (Negative) 10/22/17 16:38 Urine WBC (Auto) 9 /hpf (0-5) H 10/22/17 16:38 Urine RBC (Auto) 5 /hpf (0-3) H 10/22/17 16:38 Ur Squamous Epith Cells < 1 /hpf (0-5) 10/22/17 16:38 Calcium Oxalate Crystal Occ /hpf (<OCC) H 10/22/17 16:38 Stool Leukocytes, Qual Negative (NEGATIVE) 10/22/17 10:00 - Hospital Course Hospital Course: HPI (As per admission): Patient is a 72 year old female with past medical HTN and depression, who presents to the ED with her daughter with complaints of abdominal pain that started 2 weeks ago. Patient reports that her abdominal pain originated from the epigastric region and radiated to the lower abdomen B/L (R>L). Patient describes her pain as a 10/10 (" feels like I am giving ") with intermittent radiation to her lower back. Patient admits to associated symptoms of one episodes of vomit, intermittent nausea, 2 days of diarrhea, fever ( Tmax : 102 at home), chills and lower abdominal pressure upon urination that started on wednesday (10/17/17). Patient denies hematochezia, hematuria, recent travels, recent sickness or sick contact. Patient was seen on 10/18/17 at [facility] and was discharge with the diagnosis of colitis with prescription for Cipro and flagyl. Patient states that her pain is consistent with no relief, hence the second ER visit. Hospital course: Patient was admitted with the diagnosis of colitis. Subsequently, patient was started on appropriate antibiotics and pain medication. Patient's symptoms started to improve over the course of 2 days and was advanced to regular diet, which she tolerated well. Patient remained clinically stable without any complication and was with significant symptom relief by Day 3 of admission. Patient was cleared by medical team upon discharge and was discharge with appropriate medications and instructions. Pertinent imaging/ Labs * CT abdomen/Pelvis with contrast (10/18/17): Nonspecific colitis involving distal descending and rectosigmoid colon. Mural thickening of gastric antrum common nonspecific. Consider follow-up with upper endoscopy. No other significant abnormality. * F/u CT abdomen/Pelvis with PO and IV contrast: Findings may represent nonspecific infectious\\inflammatory segmental colitis or diverticulitis involving the sigmoid colon or rectosigmoid junction no microperforation or abscess. Constipation no bowel contraption. * Urine culture and blood culture: No growth * Stool culture: Negative for ova and parasite This is a brief summary of event. For a complete course, please refer to the medical record. Discharge Exam - Head Exam Head Exam: NORMAL INSPECTION - Eye Exam Eye Exam: EOMI, Normal appearance - ENT Exam ENT Exam: Mucous Membranes Moist - Respiratory Exam Respiratory Exam: Clear to PA & Lateral, NORMAL BREATHING PATTERN. absent: Prolonged Expiratory Phase, Wheezes, Respiratory Distress - Cardiovascular Exam Cardiovascular Exam: REGULAR RHYTHM, +S1, +S2 - GI/Abdominal Exam GI & Abdominal Exam: Normal Bowel Sounds, Soft. absent: Diminished Bowel Sounds , Distended, Firm, Hyperactive Bowel Sounds, Tenderness - Extremities Exam Extremities exam: normal inspection, pedal edema - Neurological Exam Neurological exam: Alert, Normal Gait, Oriented x3 - Psychiatric Exam Psychiatric exam: Normal Affect - Skin Skin Exam: Normal Color Discharge Plan - Discharge Medications Prescriptions: Ciprofloxacin HCl [Cipro] 500 mg PO BID #18 tab Metronidazole [Flagyl] 500 mg PO TID #27 tablet - Follow Up Plan Condition: GUARDED Disposition: HOME/ ROUTINE Additional Instructions: Please discharge patient home Please continue the following medications for the next 9 days: 1. Metronidazole 500 mg, 1 tablet by mouth at 8 AM, 2 PM, and 8 PM, Dispense #27 , NO refills 2. Ciprofloxacin 500 mg, 1 tablet by mouth at 8 AM and 8 PM, Dispense #18, NO refills 3. Please make sure that you are also taking a Probiotic (to help make sure that good bacteria come back to your colon). Please take a Probiotic everyday at 10 AM and 6 PM for the next 32 days. 4. ). Stay well hydrated with water and eat bland foods for now. 5). Please make sure that you are not performing strenuous exercise or lifting anything heavy while on the Ciprofloxacin as there is a risk for inflammation or breaking of your tendons with this drug. Please Schedule follow up with your Primary Care Physician Dr. Archer to take place in roughly 7 to [address] Archer obtain referral for [facility] for evaluation for possible Colonoscopy in 6 to 8 weeks. Please resume your home medications as prescribed by your primary care physician , Dr. Archer Please return to the hospital if symptoms resume Please take care
--- NOTE | 2017-10-26 12:08 | CARD ---
APPROVED REPORT EKG Measurement Heart [id number] <Conclusion> Sinus bradycardia Otherwise normal ECG
== END 2017-10-25 13:56 | disposition home or self-care (01) | DRG 392 ==
LOC: C.ER 14:40 → C.9E 16:58 → C.3T 17:57
PROVIDERS: ADMIT Internal Medicine; ATTEND Internal Medicine
DX: K52.9 Noninfective gastroenteritis and colitis, unspecified (principal); N39.0 Urinary tract infection, site not specified; E87.6 Hypokalemia; F32.9 Major depressive disorder, single episode, unspecified; I10 Essential (primary) hypertension; K59.00 Constipation, unspecified; Z90.710 Acquired absence of both cervix and uterus

== ENCOUNTER 2017-11-11 07:26 | Inpatient (IN) | payer MEDICARE ==
[2017-11-11] MEDS ORDERED: Sodium Chloride 0.9% 1,000 ML IV ONE ×3 (08:02→15:19)
[2017-11-11] MEDS ORDERED: Sodium Chloride 0.9% 1,000 ML ONE (08:12)
[2017-11-11 08:23] LABS: BASO % 0.3 % (0.0-2.0); EOS % 0.2 % (0.0-4.0); HEMOGLOBIN 11.9 g/dL (11.0-16.0); LYMPH # 0.9 K/uL (1.0-4.3); LYMPH % 6.2 % (20.0-40.0); MEAN CELL VOLUME 89.9 fL (81.0-99.0); MEAN CORPUSCULAR HEMOGLOBIN 30.3 pg (27.0-31.0); MEAN CORPUSCULAR HGB CONC 33.7 g/dL (33.0-37.0); MEAN PLATELET VOLUME 8.8 fL (7.2-11.7); MONO # 1.4 K/uL (0.0-0.8); MONO % 9.4 % (0.0-10.0); NEUT # 12.5 K/uL (1.8-7.0); NEUT % 83.9 % (50.0-75.0); PLATELET COUNT 307 K/uL (130-400); RBC 3.91 Mil/uL (3.80-5.20); RED CELL DISTRIBUTION WIDTH 13.6 % (11.5-14.5); WHITE BLOOD COUNT 14.9 K/uL (4.8-10.8)
[2017-11-11 08:41] LABS: INR 1.7; PROTHROMBIN TIME 18.2 SECONDS (9.7-12.2)
[2017-11-11 08:46] LABS: ALBUMIN 3.1 g/dL (3.5-5.0); ALT/SGPT 22 U/L (9-52); AST/SGOT 15 U/L (14-36); BLOOD UREA NITROGEN 9 mg/dL (7-17); CALCIUM 8.7 mg/dl (8.6-10.4); GFR AFRICAN-AMERICAN > 60; GFR NON-AFRICAN AMERICAN > 60; LIPASE 17 U/L (23-300)
[2017-11-11] MEDS ORDERED: Potassium Chloride 20 mEq 100 ML ONE (09:05)
[2017-11-11] MEDS ORDERED: Iodixanol 320 MG/ML 100 ML BOTTLE IV ONE ×2 (09:08→12:23)
[2017-11-11 09:20] LABS: ANISOCYTOSIS SLIGHT; BANDS 20 % (0-2); LYMPHOCYTE 4 % (20-40); MONOCYTE 9 % (0-10); NEUTROPHIL 67 % (50-75); PLATELET ESTIMATE NORMAL (NORMAL); POIKILOCYTOSIS SLIGHT; TOTAL CELLS COUNTED 100
[2017-11-11 09:21] LABS: HYPOCHROMIC SLIGHT; POLYCHROMIC SLIGHT
[2017-11-11 09:42] LABS: SQUAMOUS EPITHIAL 1 /hpf (0-5); URINE BILIRUBIN NEGATIVE (NEGATIVE); URINE BLOOD 1+ (NEGATIVE); URINE CLARITY Hazy (Clear); URINE COLOR Amber (YELLOW); URINE GLUCOSE (UA) NORMAL (Normal); URINE LEUKOCYTE ESTERASE TRACE Leu/uL (Negative); URINE PROTEIN 1+ mg/dL (NEGATIVE); URINE UROBILINOGEN NORMAL mg/dL (0.2-1.0)
--- NOTE | 2017-11-11 11:01 | C.PDOC ---
History Of Present Illness 72yo female with history of hypertension, comes to ER with complaints of diffuse lower abdominal pain for the past 2 weeks associated with nausea, intermittent vomiting and profuse watery, non-bloody diarrhea; patient states the diarrhea has been worsening over the past 3 days and that "I have diarrhea every hour." Pt reports, decreased appetite, unable tolerate any solid food for past few days. Pt admits, was seen here 3 weeks ago due to same complaints, admitted with Dx: Colitis, received Rx: cipro and flagyl, completed without improvement. Pt denies high fever, chills, malaise, dizziness, CP, SOB, dyspnea , diaphoresis, palpitation, hematemesis, melena, back pain, UTI sx. At the time of evaluation, appears in pain. Time Seen by Provider: 11/11/17 07:28 Chief Complaint (Nursing): Abdominal Pain History Per: Patient History/Exam Limitations: no limitations Onset/Duration Of Symptoms: Persistent Location Of Pain/Discomfort: Diffuse, RLQ, LLQ Quality Of Discomfort: "Pain" Associated Symptoms: Nausea, Diarrhea, Loss Of Appetite. denies: Urinary Symptoms Additional History Per: Patient Abnormal Vaginal Bleeding: No Past Medical History Reviewed: Historical Data, Nursing Documentation, Vital Signs Vital Signs: Last Vital Signs Temp 98.5 F 11/11/17 13:41 Pulse 70 11/11/17 13:41 Resp 16 11/11/17 13:41 BP 93/52 L 11/11/17 13:41 Pulse Ox 97 11/11/17 13:41 - Medical History PMH: Depression, HTN Surgical History: No Surg Hx Family History: States: No Known Family Hx - Social History Hx Alcohol Use: No Hx Substance Use: No - Immunization History Hx Tetanus Toxoid Vaccination: Yes Hx Influenza Vaccination: No Hx Pneumococcal Vaccination: Yes Review Of Systems Except As Marked, All Systems Reviewed And Found Negative. Constitutional: Negative for: Fever, Chills Cardiovascular: Negative for: Chest Pain Respiratory: Negative for: Shortness of Breath Gastrointestinal: Positive for: Nausea, Vomiting, Abdominal Pain, Diarrhea Musculoskeletal: Negative for: Back Pain Neurological: Negative for: Headache Physical Exam - Physical Exam Appears: Well, Non-toxic, Other (in pain) Skin: Warm, Dry, Pale Head: Normacephalic Eye(s): bilateral: PERRL Nose: No Flaring Oral Mucosa: Dry Throat: No Erythema, No Drooling Neck: Normal ROM, Trachea Midline, Supple Chest: Symmetrical Cardiovascular: Rhythm Regular, No Murmur, No JVD Respiratory: No Decreased Breath Sounds, No Accessory Muscle Use, No Rales, No Rhonchi, No Stridor, No Wheezing Gastrointestinal/Abdominal: Soft, Tenderness (diffuse lower abdominal tenderness ), No Mass, No Distention, No Guarding, No Rebound Back: No CVA Tenderness Extremity: Normal ROM, No Pedal Edema, No Deformity, No Swelling Neurological/Psych: Oriented x3, Normal Speech ED Course And Treatment - Laboratory Results Result Diagrams: 11/11/17 08:14 11/11/17 08:14 Lab Interpretation: Abnormal O2 Sat by Pulse Oximetry: 95 (RA) Pulse Ox Interpretation: Normal Progress Note: CT Abdomen/Pelvis ordered but patient refuses the study. Labs ordered. IV Fluids, pepcid, toradol, zofran, vancomycin, and potassium chloride given to patient. Pt awaiting for 3 hours for stool sample. Patient now reports she has been taking Immodium x 2 days given by PMD, " no diarrhea for past 2 days" contrary to initial complaints, unable to provide a stool sample now. Blood work review, appears abnormal: leukocytosis, bandemia, hypokalemia. Discussed results with patient, admission offered. Consider pt age, comorbidities,failed outpt tx, consideration for C-diff colitis, admission offered. Case disussed with hospitalist personnel arbitrator and admission arranged with Dx : Diffuse abd. pain, diarrhea, recent abx use, bandemia r/o C.diff colitis. Disposition - Disposition Disposition: HOSPITALIZED Disposition Time: 10:30 Condition: STABLE - Clinical Impression Clinical Impression: Diarrhea, Abdominal pain, Bandemia, C. difficile colitis - PA / HEALTH INFORMATION ADMINISTRATOR / Resident Statement MD/DO has reviewed & agrees with the documentation as recorded. - Scribe Statement The provider has reviewed the documentation as recorded by the Ciera Briggs Provider Attestation: All medical record entries made by the Ciera were at my direction and personally dictated by me. I have reviewed the chart and agree that the record accurately reflects my personal performance of the history, physical exam, medical decision making, and the department course for this patient. I have also personally directed, reviewed, and agree with the discharge instructions and disposition.
[2017-11-11] MEDS ORDERED: Vancomycin 125 MG/5 ML SOLN (ORAL/RECTAL) PO STA (11:04)
--- NOTE | 2017-11-11 13:06 | CT ---
Date of service: 11/11/2017 PROCEDURE: CT Abdomen and Pelvis with contrast HISTORY: RLQ pain COMPARISON: Comparison is made to the previous study dated 10/22/2017 TECHNIQUE: Contrast dose: 100 mL Visipaque 320. Axial and reformatted coronal and sagittal CT images of the abdomen and pelvis were obtained after IV contrast administration. Radiation dose: Total exam DLP = 290.55 mGy-cm. This CT exam was performed using one or more of the following dose reduction techniques: Automated exposure control, adjustment of the mA and/or kV according to patient size, and/or use of iterative reconstruction technique. FINDINGS: LOWER THORAX: Bibasilar small opacities may represent atelectasis or less likely aspiration LIVER: Heterogeneous enhancement of the liver is again noted. The liver is mildly enlarged. The portal vein is patent. There is mild periportal edema noted. GALLBLADDER AND BILE DUCTS: Mild gallbladder wall thickening is noted. No CT evidence of acute cholecystitis. No evidence of significant biliary obstruction. PANCREAS: No CT evidence of pancreatitis. The main pancreatic duct is not dilated. SPLEEN: Unremarkable. ADRENALS: Unremarkable. No mass. KIDNEYS AND URETERS: Unremarkable. No hydronephrosis. No solid mass. VASCULATURE: Unremarkable. No aortic aneurysm. BOWEL: There is diffuse ascending and transverse colon wall thickening suggestive of colitis. There is also suspicious for descending and sigmoid colon wall thickening. Significant wall thickening in the rectum also noted consistent with proctitis. There is mild wall thickening noted in the mid and distal small bowel loops without evidence of bowel obstruction. APPENDIX: There is no evidence of appendicitis. PERITONEUM: Unremarkable. No free fluid. No free air. LYMPH NODES: Unremarkable. No enlarged lymph nodes. BLADDER: Unremarkable. REPRODUCTIVE: The uterus and adnexa are not clearly visualized. BONES: No acute fracture. OTHER FINDINGS: None. IMPRESSION: Findings suggestive of diffuse large bowel wall thickening more prominent on the right side consistent with pancolitis. Mild small-bowel wall thickening also noted. No evidence of high-grade bowel obstruction. No evidence of cholecystitis pancreatitis or appendicitis.
--- NOTE | 2017-11-11 14:02 | CP.PCM.HP ---
History of Present Illness - History of Present Illness History of Present Illness: CC "abdominal pain, nausea, diarrhea" HPI: Patient is a 72 year old female with history of hypertension, depression and GERD who presents for evaluation of recurrent lower abdominal pain, nausea, decreased appetite, diarrhea and fevers/chills. She states she has had 5 day history of multiple episodes of loose, nonbloody, yellow, malodorous, smooth and watery stools. Her last episode of diarrhea was this morning prior to arriving at the ED. Patient was recently evaluated twice last month for similar complaints of abdominal pain and diarrhea. She was seen at [place] [facility] on 10/18/17 where she was given a script for Cipro and Flagyl. CT of abdomen done at that time revealed changes indicative of colitis. She was admitted on 10/22/17 for worsening of abdominal pain, diarrhea, fevers. She was treated with course of Cipro, Flagyl. She was given a script for 9 days of Cipro and Flagyl on 10/25/17. She states that she has lower abdominal pain is exacerbated with food, and relieved without diet. She has been able to drink apple juice, last ate rice last night. She was seen by PMD Dr. Archer 2 days ago who prescribed her with a course of Cipro and Immodium. She last took Cipro last night with dinner. Over the past 5 days, she has continued to feel weak, dizzy and lightheaded. Admits to falling yesterday but was able to catch herself , but denies losing consciousness or hitting her head. Admits to occasional dysuria, however denies urinary frequency. She denies chest pain, shortness of breath, palpitations, cough, recent travel, sick contacts, new rashes. PMH: HTN, depression, GERD PSH: hysterectomy, lipoma removal on left anterior chest Meds: Norvasc 5mg daily, Lexapro 20mg occasionally, Zantac Social hx: denies history of tobacco, alcohol, illicit drug use. States she is typically very independent and lives alone at home. Able to do ADLs by herself. Family hx: father and paternal aunt - DM, sister - ovarian cancer Allergies: NKDA PMD: Dr. Archer Code status: unknown Advance directive: patient states she is not sure and needs to ask her daughter. As per prior notes, Daughter Jyotsna Marie [phone] Present on Admission - Present on Admission Any Indicators Present on Admission: No Review of Systems - Constitutional Constitutional: Chills, Fever, Weakness - EENT Eyes: absent: Change in Vision - Cardiovascular Cardiovascular: absent: Chest Pain, Dyspnea - Respiratory Respiratory: absent: Cough, Dyspnea, Chest Congestion - Gastrointestinal Gastrointestinal: Abdominal Pain, Diarrhea, Loose Stools, Nausea. absent: Hematochezia - Genitourinary Genitourinary: Dysuria, Voiding Freq/Small Amts - Musculoskeletal Musculoskeletal: absent: Back Pain, Numbness, Stiffness - Neurological Neurological: absent: Abnormal Gait, Abnormal Movements, Focal Weakness - Endocrine Endocrine: absent: Palpitations Past Patient History - Infectious Disease Hx of Infectious Diseases: None - Past Social History Smoking Status: Never Smoked - CARDIAC Hx Hypertension: Yes - MUSCULOSKELETAL/RHEUMATOLOGICAL Hx Falls: No - PSYCHIATRIC Hx Depression: Yes Hx Substance Use: No - SURGICAL HISTORY Hx Hysterectomy: Yes Other/Comment: Lipoma - L breast - ANESTHESIA Hx Anesthesia: Yes Hx Anesthesia Reactions: No Hx Malignant Hyperthermia: No Meds Allergies/Adverse Reactions: Allergies Allergy/AdvReac Type Severity Reaction Status Date / Time No Known Allergies Allergy Verified 11/11/17 07:45 Physical Exam - Constitutional Appears: No Acute Distress - Head Exam Head Exam: ATRAUMATIC, NORMOCEPHALIC - Eye Exam Eye Exam: EOMI. absent: Nystagmus, Scleral icterus - ENT Exam ENT Exam: Mucous Membranes Dry - Neck Exam Neck exam: Positive for: Full Rom. Negative for: Tenderness - Respiratory Exam Respiratory Exam: Clear to Auscultation Bilateral, NORMAL BREATHING PATTERN. absent: Rales, Rhonchi, Wheezes - Cardiovascular Exam Cardiovascular Exam: REGULAR RHYTHM, +S1, +S2 - GI/Abdominal Exam GI & Abdominal Exam: Hyperactive Bowel Sounds, Soft, Tenderness (right lower quadrant, right upper quadrant, suprapubic tenderness). absent: Distended, Firm , Guarding - Extremities Exam Extremities exam: Positive for: normal capillary refill, pedal pulses present. Negative for: calf tenderness, pedal edema, tenderness - Back Exam Back exam: CVA tenderness (R). absent: CVA tenderness (L), rash noted - Neurological Exam Neurological exam: Alert, CN II-XII Intact, Oriented x3 - Psychiatric Exam Psychiatric exam: Normal Affect - Skin Skin Exam: Dry, Intact, Warm Additional comments: Mild tenting on skin noted Dry axilla Results - Vital Signs Recent Vital Signs: Last Vital Signs Temp 98.5 F 11/11/17 13:41 Pulse 70 11/11/17 13:41 Resp 16 11/11/17 13:41 BP 93/52 L 11/11/17 13:41 Pulse Ox 97 11/11/17 13:41 - Labs Result Diagrams: 11/11/17 08:14 11/11/17 08:14 Labs: Laboratory Results - last 24 hr 11/11/17 11/11/17 11/11/17 08:14 08:14 08:28 WBC 14.9 H D RBC 3.91 Hgb 11.9 Hct 35.1 MCV 89.9 MCH 30.3 MCHC 33.7 RDW 13.6 Plt Count 307 MPV 8.8 Neut % (Auto) 83.9 H Lymph % (Auto) 6.2 L [place] % (Auto) 9.4 Eos % (Auto) 0.2 Baso % (Auto) 0.3 Neut # (Auto) 12.5 H Lymph # (Auto) 0.9 L [place] # (Auto) 1.4 H Eos # (Auto) 0.0 Baso # (Auto) 0.0 Neutrophils % (Manual) 67 Band Neutrophils % 20 H* Lymphocytes % (Manual) 4 L Monocytes % (Manual) 9 Platelet Estimate Normal Polychromasia Slight Hypochromasia (manual) Slight Poikilocytosis (manual Slight Anisocytosis (manual) Slight PT 18.2 H INR 1.7 APTT 26 Sodium 138 Potassium 3.2 L Chloride 99 Carbon Dioxide 28 Anion Gap 15 BUN 9 Creatinine 0.6 L Est GFR ( Amer) > 60 Est GFR (Non-Af Amer) > 60 Random Glucose 136 H Calcium 8.7 Total Bilirubin 0.7 AST 15 ALT 22 Alkaline Phosphatase 100 Troponin I < 0.0120 Total Protein 6.1 L Albumin 3.1 L Globulin 3.0 Albumin/Globulin Ratio 1.0 Lipase 17 L Urine Color Urine Clarity Urine pH Ur Specific [place] Urine Protein Urine Glucose (UA) Urine Ketones Urine Blood Urine Nitrate Urine Bilirubin Urine Urobilinogen Ur Leukocyte Esterase Urine WBC (Auto) Urine RBC (Auto) Ur Squamous Epith Cells 11/11/17 09:19 WBC RBC Hgb Hct MCV MCH MCHC RDW Plt Count MPV Neut % (Auto) Lymph % (Auto) [place] % (Auto) Eos % (Auto) Baso % (Auto) Neut # (Auto) Lymph # (Auto) [place] # (Auto) Eos # (Auto) Baso # (Auto) Neutrophils % (Manual) Band Neutrophils % Lymphocytes % (Manual) Monocytes % (Manual) Platelet Estimate Polychromasia Hypochromasia (manual) Poikilocytosis (manual Anisocytosis (manual) PT INR APTT Sodium Potassium Chloride Carbon Dioxide Anion Gap BUN Creatinine Est GFR ( Amer) Est GFR (Non-Af Amer) Random Glucose Calcium Total Bilirubin AST ALT Alkaline Phosphatase Troponin I Total Protein Albumin Globulin Albumin/Globulin Ratio Lipase Urine Color Ariela Urine Clarity Hazy Urine pH 5.0 Ur Specific [place] 1.017 Urine Protein 1+ H Urine Glucose (UA) Normal Urine Ketones Negative Urine Blood 1+ H Urine Nitrate Negative Urine Bilirubin Negative Urine Urobilinogen Normal Ur Leukocyte Esterase Trace Urine WBC (Auto) 9 H Urine RBC (Auto) 21 H Ur Squamous Epith Cells 1 Assessment & Plan - Assessment and Plan (Free Text) Assessment: 72 year old female with history of hypertension, depression, GERD who presents for evaluation of diarrhea and abdominal pain. Plan: Assessment/plan Diarrhea of infectious etiology Clostridium dificile colitis, possible given history of antibiotic use inflammatory etiology possible NS 1L IV bolus, then NS@125cc/hr Zofran 4mg IV PRN nausea ID Dr. Sullivan consulted, help appreciated Flagyl 500mg IV Vancomycin 250mg PO QID Abdomen & pelvis CT with IV contrast: findings suggestive of diffuse large bowel thickening more prominent on the right side consistent with pancolitis. Mild small bowel wall thickening also noted. No evidence of high grade bowel obstruction. No evidence of cholecystitis, pancreatitis or appendicitis. Liquid diet started. Stool cultures ordered Stool studies including stool leukocytes, stool O&P, C diff toxin. Dysuria Possible UTI UA 1+ protein, 1+ blood, 9WBC, Squamous cells 1 Follow up urine cultures Sepsis Vital Temp 98.4 HR 55 BP 92/47 RR 18 Pulse ox 96% RA VBG pH 7.41 pCO2 47 pO2 34 Lactate 0.8 WBC 14.9 with bands of 20 Patient received NS IV 1L bolus in ED. Additional NS IV 1L bolus ordered. NS IV 125cc/hr initiated Abdomen & pelvis CT with IV contrast: findings suggestive of diffuse large bowel thickening more prominent on the right side consistent with pancolitis. Mild small bowel wall thickening also noted. No evidence of high grade bowel obstruction. No evidence of cholecystitis, pancreatitis or appendicitis. ID Dr. Sullivan consulted, help appreciated Flagyl 500mg IV Vancomycin 250mg PO QID Blood cultures ordered Urine culture ordered Stool cultures ordered Stool studies including stool leukocytes, stool O&P, C diff toxin ordered. History of Hypertension, Hypotension Currently hypotensive 92/47 Patient received 2L NS IV bolus, currently on NS @125cc/hr Patient's home medication - Norvasc 5mg PO daily held Continue to monitor patient's BP and mental status. History of depression Patient on Lexapro 20mg at home - she states she does not take it regularly, but only as needed. continue to monitor patient History of GERD Pepcid 20mg PO daily Prophylaxis DVT risk score 1 SCDs Morgan Pizarro, PGYI Case discussed with Dr. Mo
[2017-11-11 15:37] LABS: VENOUS BLOOD FIO2 21 %; VENOUS BLOOD GAS BASE EXCESS 4.3 mmol/L (0.0-2.0); VENOUS BLOOD GAS PCO2 47 mmHg (40-60); VENOUS BLOOD GAS PO2 34 mm/Hg (30-55); VENOUS BLOOD PH 7.41 (7.32-7.43)
[2017-11-11] MEDS ORDERED: metroNIDAZOLE IV 500 mg/100 ml 500 MG/100 ML BAG IVPB SCH (15:45)
[2017-11-11] MEDS: metroNIDAZOLE IV 500 mg/100 ml 500 MG/100 ML BAG IVPB SCH (16:58)
[2017-11-11] MEDS: Vancomycin 125 MG/5 ML SOLN (ORAL/RECTAL) PO SCH ×2 (17:00→22:36)
--- NOTE | 2017-11-11 20:48 | CP.PCM.CON ---
History of Present Illness - History of Present Illness History of Present Illness: dictated Past Patient History - Infectious Disease Hx of Infectious Diseases: None - Past Social History Smoking Status: Never Smoked - CARDIAC Hx Hypertension: Yes - MUSCULOSKELETAL/RHEUMATOLOGICAL Hx Falls: No - GENITOURINARY/GYNECOLOGICAL Hx Genitourinary Disorders: No - PSYCHIATRIC Hx Depression: Yes Hx Substance Use: No - SURGICAL HISTORY Hx Hysterectomy: Yes Other/Comment: Lipoma - L breast - ANESTHESIA Hx Anesthesia: Yes Hx Anesthesia Reactions: No Hx Malignant Hyperthermia: No Meds Allergies/Adverse Reactions: Allergies Allergy/AdvReac Type Severity Reaction Status Date / Time No Known Allergies Allergy Verified 11/11/17 07:45 - Medications Medications: Current Medications Famotidine (Pepcid) 20 mg PO DAILY REPLACED BY [facility] Sodium Chloride (Sodium Chloride 0.9%) 1,000 mls @ 125 mls/hr IV .Q8H ONE Stop: 11/11/17 23:18 Last Admin: 11/11/17 17:00 Dose: 125 mls/hr Metronidazole (Flagyl) 500 mg in 100 mls @ 100 mls/hr IVPB Q8H [place] PRN Reason: Protocol Last Admin: 11/11/17 16:58 Dose: 100 mls/hr Ondansetron HCl (Zofran Inj) 4 mg IVP DAILY@ONCE PRN PRN Reason: Nausea/Vomiting Vancomycin HCl (Vancocin (Oral Or Rectal Use)) 250 mg PO QID [place]ENS PRN Reason: Protocol Last Admin: 11/11/17 17:00 Dose: 250 mg Results - Vital Signs Recent Vital Signs: Last Vital Signs Temp 98.4 F 11/11/17 16:00 Pulse 55 L 11/11/17 16:00 Resp 18 11/11/17 16:00 BP 92/47 L 11/11/17 16:00 Pulse Ox 96 11/11/17 16:00 - Labs Result Diagrams: 11/11/17 08:14 11/11/17 08:14 Labs: Laboratory Results - last 24 hr 11/11/17 11/11/17 11/11/17 08:14 08:14 08:28 WBC 14.9 H D RBC 3.91 Hgb 11.9 Hct 35.1 MCV 89.9 MCH 30.3 MCHC 33.7 RDW 13.6 Plt Count 307 MPV 8.8 Neut % (Auto) 83.9 H Lymph % (Auto) 6.2 L [place] % (Auto) 9.4 Eos % (Auto) 0.2 Baso % (Auto) 0.3 Neut # (Auto) 12.5 H Lymph # (Auto) 0.9 L [place] # (Auto) 1.4 H Eos # (Auto) 0.0 Baso # (Auto) 0.0 Neutrophils % (Manual) 67 Band Neutrophils % 20 H* Lymphocytes % (Manual) 4 L Monocytes % (Manual) 9 Platelet Estimate Normal Polychromasia Slight Hypochromasia (manual) Slight Poikilocytosis (manual Slight Anisocytosis (manual) Slight PT 18.2 H INR 1.7 APTT 26 pO2 VBG pH VBG pCO2 VBG HCO3 VBG Total CO2 VBG O2 Sat (Calc) VBG Base Excess VBG Potassium Glucose Lactate FiO2 Sodium 138 Potassium 3.2 L Chloride 99 Carbon Dioxide 28 Anion Gap 15 BUN 9 Creatinine 0.6 L Est GFR ( Amer) > 60 Est GFR (Non-Af Amer) > 60 Random Glucose 136 H Calcium 8.7 Total Bilirubin 0.7 AST 15 ALT 22 Alkaline Phosphatase 100 Troponin I < 0.0120 Total Protein 6.1 L Albumin 3.1 L Globulin 3.0 Albumin/Globulin Ratio 1.0 Lipase 17 L Venous Blood Potassium Urine Color Urine Clarity Urine pH Ur Specific [place] Urine Protein Urine Glucose (UA) Urine Ketones Urine Blood Urine Nitrate Urine Bilirubin Urine Urobilinogen Ur Leukocyte Esterase Urine WBC (Auto) Urine RBC (Auto) Ur Squamous Epith Cells 11/11/17 11/11/17 09:19 12:40 WBC RBC Hgb Hct MCV MCH MCHC RDW Plt Count MPV Neut % (Auto) Lymph % (Auto) [place] % (Auto) Eos % (Auto) Baso % (Auto) Neut # (Auto) Lymph # (Auto) [place] # (Auto) Eos # (Auto) Baso # (Auto) Neutrophils % (Manual) Band Neutrophils % Lymphocytes % (Manual) Monocytes % (Manual) Platelet Estimate Polychromasia Hypochromasia (manual) Poikilocytosis (manual Anisocytosis (manual) PT INR APTT pO2 34 VBG pH 7.41 VBG pCO2 47 VBG HCO3 27.4 VBG Total CO2 31.2 H VBG O2 Sat (Calc) 79.6 H VBG Base Excess 4.3 H VBG Potassium 3.8 Glucose 121 H Lactate 0.8 FiO2 21 Sodium 138.0 Potassium Chloride 106.0 Carbon Dioxide Anion Gap BUN Creatinine Est GFR ( Amer) Est GFR (Non-Af Amer) Random Glucose Calcium Total Bilirubin AST ALT Alkaline Phosphatase Troponin I Total Protein Albumin Globulin Albumin/Globulin Ratio Lipase Venous Blood Potassium 3.8 Urine Color Ariela Urine Clarity Hazy Urine pH 5.0 Ur Specific [place] 1.017 Urine Protein 1+ H Urine Glucose (UA) Normal Urine Ketones Negative Urine Blood 1+ H Urine Nitrate Negative Urine Bilirubin Negative Urine Urobilinogen Normal Ur Leukocyte Esterase Trace Urine WBC (Auto) 9 H Urine RBC (Auto) 21 H Ur Squamous Epith Cells 1
[2017-11-11 21:59] LABS: SQUAMOUS EPITHIAL < 1 /hpf (0-5); URINE BACTERIA RARE (<OCC); URINE BILIRUBIN NEGATIVE (NEGATIVE); URINE BLOOD 1+ (NEGATIVE); URINE CLARITY Clear (Clear); URINE COLOR Yellow (YELLOW); URINE GLUCOSE (UA) NORMAL (Normal); URINE LEUKOCYTE ESTERASE NEG Leu/uL (Negative); URINE PROTEIN NEGATIVE (NEGATIVE); URINE UROBILINOGEN NORMAL mg/dL (0.2-1.0)
[2017-11-12] MEDS: metroNIDAZOLE IV 500 mg/100 ml 500 MG/100 ML BAG IVPB SCH ×3 (00:59→16:15)
--- NOTE | 2017-11-12 08:44 | CON ---
DATE: 11/11/2017 HISTORY OF PRESENT ILLNESS: The patient is a 72-year-old female. She has history of hypertension, depression, and GERD. She came in with lower abdominal pain, nausea, also was having significant diarrhea, decreased appetite, and fever and chills. She says she has had multiple episodes of loose, nonbloody, foul-smelling watery stools, and her last was this morning. She was seen in the ED on 10/18/2017 and was given a script for Cipro and Flagyl, and she says she was taking that, and she was admitted on 10/22/2017 for worsening abdominal pain, diarrhea, and fevers, and she was again given a script for Cipro and Flagyl which she has taken from 10/18/2017 to 10/25/2017. PMD also prescribed a course of Cipro and Imodium. She last had Cipro last night with dinner, so she has been on antibiotics. She admits to dysuria, however, denies any urgency or frequency. She denies any chest pain. No shortness of breath. PAST MEDICAL HISTORY: Significant for hysterectomy, long time bath for fibroids, and has lipoma removal on the left anterior chest. MEDICATIONS: She takes Norvasc, Lexapro, and Zantac. SOCIAL HISTORY: Negative for smoking or drinking or any drug abuse. She is a patient of Dr. Archer. FAMILY HISTORY: Father and paternal aunt had diabetes. Her sister has ovarian cancer. ALLERGIES: SHE IS NOT ALLERGIC TO ANY MEDICINE. REVIEW OF SYSTEMS: On admission, she had chills, fever, and weakness. Denies any ear, nose, or throat problems. Complains of mild headache at this time. Denies any difficulty swallowing. Denies any chest pain. No shortness of breath. No cough. No dyspnea. No history of asthma. Does complain of abdominal pain which is diffuse, loose BM, nausea, and diarrhea. Denies any blood in the stool. Does have dysuria, but denies any urgency and frequency of the urine. She denies any joint pains at this time. Denies any gait problem. Denies any neurological problem. No endocrine problems reported. She does not have diabetes. Denies any other thyroid issues. Past history is negative before. Social history is negative. CARDIAC HISTORY: Significant for hypertension. PSYCH HISTORY: Depression. No substance abuse. PAST SURGICAL HISTORY: Hysterectomy. PHYSICAL EXAMINATION: VITAL SIGNS: When I saw her, her temperature was 98.4, pulse of 55, blood pressure is on the low side 92/47, respirations are 18. HEENT: Head is atraumatic, normocephalic. Tongue was dry. She does have teeth present. SKIN: Dry. NECK: Supple. JVP is flat. LUNGS: Clear. No crackles or rales present. Chest wall is symmetrical. HEART: S1, S2 are regular. No murmurs appreciated. ABDOMEN: Has no guarding, no rigidity. Bowel sounds were present. She did complain of diffuse pain. In the lower abdomen, some tenderness was noted. EXTREMITIES: No edema, clubbing, or cyanosis. BACK: She does have CVA tenderness on the right, no CVA tenderness on the left. SKIN: There was some rash noted by the resident, so we will follow tomorrow about that. NEUROLOGIC: Neurologically, no focal deficits. LABORATORY DATA: White count was 14.9, hemoglobin 11.9, hematocrit 35.1, platelet count is 301. Potassium is 3.2, BUN is 9, creatinine is 0.6, and glucose is 136. She did have some bands noted. There were 20% bands. She has had Cipro and Flagyl all along. UA shows wbc 9, rbc 21, squamous cell 1. I doubt there is UTI, but we will get a urine culture done anyway. She had a CAT scan done. CAT scan shows diffuse large bowel thickening, more prominent on the right side consistent with pancolitis, mild small bowel wall thickening also noted. No evidence of high-grade bowel obstruction. No evidence of cholecystitis, pancreatitis, or appendicitis. IMPRESSION: So my impression is she is admitted with sepsis, has hypotension, with severe diarrhea, hypotensive with white count increased with severe bands. Suggest at this time to continue hydration. I have started her on vancomycin p.o. emperically as well as on Flagyl intravenous to treat for c diff colitis as she was on antiibiotics , and we would follow and to hydrate well, to maintain the blood pressure, and to send stool studies. We will see if Gastroenterology has any recommendations other than this, and we will follow. Grupo Sullivan MD [facility] # [id number] [place]
[2017-11-12 08:52] LABS: BASO % 0.2 % (0.0-2.0); EOS # 0.1 K/uL (0.0-0.7); EOS % 0.8 % (0.0-4.0); HEMOGLOBIN 10.2 g/dL (11.0-16.0); LYMPH # 0.8 K/uL (1.0-4.3); LYMPH % 8.4 % (20.0-40.0); MEAN CELL VOLUME 90.2 fL (81.0-99.0); MEAN CORPUSCULAR HEMOGLOBIN 31.3 pg (27.0-31.0); MEAN CORPUSCULAR HGB CONC 34.6 g/dL (33.0-37.0); MEAN PLATELET VOLUME 8.7 fL (7.2-11.7); MONO # 0.9 K/uL (0.0-0.8); MONO % 8.8 % (0.0-10.0); NEUT # 8.1 K/uL (1.8-7.0); NEUT % 81.8 % (50.0-75.0); PLATELET COUNT 264 K/uL (130-400); RBC 3.25 Mil/uL (3.80-5.20); RED CELL DISTRIBUTION WIDTH 13.5 % (11.5-14.5); WHITE BLOOD COUNT 9.9 K/uL (4.8-10.8)
[2017-11-12 09:08] LABS: ALBUMIN 2.4 g/dL (3.5-5.0); ALT/SGPT 26 U/L (9-52); AST/SGOT 11 U/L (14-36); BLOOD UREA NITROGEN 8 mg/dL (7-17); GFR AFRICAN-AMERICAN > 60; GFR NON-AFRICAN AMERICAN > 60
--- NOTE | 2017-11-12 09:12 | CP.PCM.PN ---
<Morgan Pizarro - Last Filed: 11/12/17 18:56> Subjective - Date & Time of Evaluation Date of Evaluation: 11/12/17 Time of Evaluation: 09:12 - Subjective Subjective: Progress note for Hospitalist service Patient states she has had 4 episodes of yellow watery mucusy diarrhea this morning while on liquid diet. Complains of abdominal pain and nausea, with poor appetite. She states she feels very weak because of her diarrhea. She denies chest pain, shortness of breath, headaches, palpitations, lower extremity swelling and pain. Objective - Vital Signs/Intake and Output Vital Signs (last 24 hours): Temp Pulse Resp BP Pulse Ox 99.2 F 73 20 116/64 95 11/12/17 08:06 11/12/17 08:06 11/12/17 08:06 11/12/17 08:06 11/12/17 08:06 Intake and Output: 11/12/17 11/12/17 06:59 18:59 Intake Total 250 Balance 250 - Medications Medications: Current Medications Famotidine (Pepcid) 20 mg PO DAILY [facility] Metronidazole (Flagyl) 500 mg in 100 mls @ 100 mls/hr IVPB Q8H [facility] PRN Reason: Protocol Last Admin: 11/12/17 00:59 Dose: 100 mls/hr Ondansetron HCl (Zofran Inj) 4 mg IVP Q6H PRN PRN Reason: Nausea/Vomiting Vancomycin HCl (Vancocin (Oral Or Rectal Use)) 250 mg PO QID [facility] PRN Reason: Protocol Last Admin: 11/11/17 22:36 Dose: 250 mg - Labs Labs: 11/12/17 08:41 11/12/17 08:41 PT 18.2 SECONDS (9.7-12.2) H 11/11/17 08:28 INR 1.7 11/11/17 08:28 APTT 26 SECONDS (21-34) 11/11/17 08:28 - Constitutional Appears: Other (Patient appears uncomfortable in bed. ) - Head Exam Head Exam: ATRAUMATIC, NORMOCEPHALIC - Eye Exam Eye Exam: EOMI, PERRL - ENT Exam ENT Exam: Mucous Membranes Dry - Neck Exam Neck Exam: absent: Lymphadenopathy, Tenderness - Respiratory Exam Respiratory Exam: Clear to Ausculation Bilateral, NORMAL BREATHING PATTERN. absent: Rales, Rhonchi, Wheezes, Respiratory Distress - Cardiovascular Exam Cardiovascular Exam: REGULAR RHYTHM, +S1, +S2 - GI/Abdominal Exam GI & Abdominal Exam: Soft, Tenderness (diffusely, especially in lower quadrants) , Hyperactive Bowel Sounds. absent: Distended, Firm, Rigid - Extremities Exam Extremities Exam: absent: Calf Tenderness, Joint Swelling, Pedal Edema, Tenderness - Back Exam Back Exam: CVA tenderness (R) - Neurological Exam Neurological Exam: Alert, Awake, Oriented x3 - Skin Skin Exam: Dry, Intact, Warm Assessment and Plan - Assessment and Plan (Free Text) Plan: Assessment/plan Diarrhea infectious etiology possible Clostridium dificile colitis, possible given history of antibiotic use inflammatory etiology possible 11/11/17 NS 1L IV bolus, then NS@125cc/hr 11/12/17 D5 with KCl drip initiated. * Continue to monitor for signs of dehydration Zofran 4mg IV PRN nausea ID Dr. Sullivan consulted, help appreciated 11/11/17 Flagyl 500mg IV initiated 11/11/17 Vancomycin 250mg PO QID initiated 11/12/17 Meropenem 1g IV Q8 initiated 11/11/17 WBC 14.9 with bands of 20 11/12/17 WBC 9.9 with bands of 22 11/11/17 Abdomen & pelvis CT with IV contrast: findings suggestive of diffuse large bowel thickening more prominent on the right side consistent with pancolitis. Mild small bowel wall thickening also noted. No evidence of high grade bowel obstruction. No evidence of cholecystitis, pancreatitis or appendicitis. On liquid diet Stool cultures ordered Stool studies * C diff toxin negative * Stool occult blood positive * Stool leukocytes positive * stool ova and parasite negative Sepsis 11/11/17 VS Temp 98.4 HR 55 BP 92/47 RR 18 Pulse ox 96% RA 11/12/17 VS: Febrile to 102.7 - Tylenol 650mg PRN 11/11/17 VBG pH 7.41 pCO2 47 pO2 34 Lactate 0.8 11/11/17 WBC 14.9 with bands of 20 11/12/17 WBC 9.9 with bands of 22 11/11/17 NS 1L IV bolus, then NS@125cc/hr 11/12/17 D5 with KCl drip initiated. 11/11/17 Abdomen & pelvis CT with IV contrast: findings suggestive of diffuse large bowel thickening more prominent on the right side consistent with pancolitis. Mild small bowel wall thickening also noted. No evidence of high grade bowel obstruction. No evidence of cholecystitis, pancreatitis or appendicitis. ID Dr. Sullivan consulted, help appreciated 11/11/17 Flagyl 500mg IV initiated 11/11/17 Vancomycin 250mg PO QID initiated 11/12/17 Meropenem 1g IV Q8 initiated Blood cultures ordered Urine culture ordered Stool cultures ordered Stool studies * C diff toxin negative * Stool occult blood positive * Stool leukocytes positive * Stool ova and parasite negative Dysuria Possible Urinary Tract infection 11/11/17 UA 1+ protein, 1+ blood, 9WBC, Squamous cells 1 Follow up urine cultures History of Hypertension, Hypotension Currently mildly hypotensive 105/68 Continue IV hydration as necessary Patient's home medication - Norvasc 5mg PO daily held Continue to monitor patient's BP and mental status. Hypokalemia, likely secondary to GI losses K 3.2 , Mag 1.9 Repleted with KCL 40mEq PO Continue to monitor History of depression Patient on Lexapro 20mg at home - she states she does not take it regularly, but only as needed. Continue to monitor patient for signs of depression. History of GERD Pepcid 20mg PO daily Prophylaxis DVT risk score 1 SCDs Bacid 1cap PO BID daily PT/OT evaluation Morgan Pizarro, BANDAR Case discussed with Dr. Gatica <Marichuy Gatica V - Last Filed: 11/12/17 21:55> Objective - Vital Signs/Intake and Output Vital Signs (last 24 hours): Temp Pulse Resp BP Pulse Ox 97.8 F 125 H 20 105/68 95 11/12/17 17:00 11/12/17 15:00 11/12/17 15:00 11/12/17 15:00 11/12/17 15:00 Intake and Output: 11/12/17 11/13/17 18:59 06:59 Intake Total 610 Balance 610 - Medications Medications: Current Medications Acetaminophen (Tylenol 325mg Tab) 650 mg PO Q6 PRN PRN Reason: Fever >100.4 F Last Admin: 11/12/17 16:00 Dose: 650 mg Famotidine (Pepcid) 20 mg PO DAILY [facility] Last Admin: 11/12/17 10:37 Dose: 20 mg Metronidazole (Flagyl) 500 mg in 100 mls @ 100 mls/hr IVPB Q8H [facility] PRN Reason: Protocol Last Admin: 11/12/17 16:15 Dose: 100 mls/hr Potassium Chloride/Dextrose (Potassium Chl 20 Meq In D5w) 1,000 mls @ 100 mls/ hr IV .Q10H [facility] Last Admin: 11/12/17 17:59 Dose: 100 mls/hr Meropenem 1 gm/ Sodium (Chloride) 100 mls @ 100 mls/hr IVPB Q8H [facility] PRN Reason: Protocol Last Admin: 11/12/17 17:58 Dose: 100 mls/hr Lactobacillus Acidophilus (Bacid Acidophilus) 1 cap PO BID [facility] Last Admin: 11/12/17 17:59 Dose: 1 cap Ondansetron HCl (Zofran Inj) 4 mg IVP Q6H PRN PRN Reason: Nausea/Vomiting Last Admin: 11/12/17 17:58 Dose: 4 mg Vancomycin HCl (Vancocin (Oral Or Rectal Use)) 250 mg PO QID [facility] PRN Reason: Protocol Last Admin: 11/12/17 18:21 Dose: 250 mg - Labs Labs: 11/12/17 08:41 11/12/17 08:41 PT 18.2 SECONDS (9.7-12.2) H 11/11/17 08:28 INR 1.7 11/11/17 08:28 APTT 26 SECONDS (21-34) 11/11/17 08:28 Attending/Attestation - Attestation I have personally seen and examined this patient.: Yes I have fully participated in the care of the patient.: Yes I have reviewed all pertinent clinical information, including history, physical exam and plan: Yes Notes (Text): Patient seen, examined, and case discussed with territory sales manager medical. Patient seen this morning about 11:30AM with the resident. Prior to our arrival , patient reported she had 4 diarrheal mucus bowel movements. Patient is on liquid diet. She is hesitant about eating. Patient's stool leukocytes and stool occult blood are positive. Patient's C. Dif remains negative; However, in light of previous treatment for infectious colitis; I think would be prudent to treat for C. Dif colitis. Infectious disease on board. We have started her on maintenance Iv fluids given hypokalemia likely secondary GI losses. On exam, she does have mild tenderness over the epigastric area, and hyperactive bowel sounds. Assessment/Plan (1) Colitis Abdominal Pain Assessment and Plan: * Infectious Disease (Dr. Sullivan) on case-->help appreciated * GI (Dr. Kenyon) on the case-->help appreciated * Requested by ID * Patient with recurrent colitis, positive stool leukocytes, and negative C. Dif, positive occult blood * Flagyl 500mg IVPB Q8H (active since 11/11/17) * Meropenem 1gm IVPB Q8H (active since 11/12/17) started on light of fever * Vancomycin 250mg PO QID (active since 11/11/17) * D51/2 NS with 20meq KCL at 75cc/hr * Tylenol 650mg PO Q6H PRN fever * Monitor diarrheal movements * She reports prior to coming she would have about 8 movements * Today she reports 4 movements in the morning session * CT abdomen/pelvis (11/11/17): diffuse large bowel wall thickening more prominent of the right side consisent with pancolitis. mid small bowel wall thickening. No evidence of high grade bowel obstruction. No evidence of cholecystitis, pancreatitis or appendicitis. Prior Hospitalization: Imaging * CT abdomen/Pelvis with contrast (10/18/17): Nonspecific colitis involving distal descending and rectosigmoid colon. Mural thickening of gastric antrum common nonspecific. Consider follow-up with upper endoscopy. No other significant abnormality. * CT abdomen/Pelvis with PO and IV contrast (10/22/17): Findings may represent nonspecific infectious\inflammatory segmental colitis or diverticulitis involving the sigmoid colon or rectosigmoid junction no microperforation or abscess. Constipation no bowel contraption. * We'll advance to regular diet todya. Medications: * Cipro 400mg IV Q12H (active since 10/22/17) * Flagyl 500mg PO IV Q8H (active since 10/22/17) * completed PO antibiotics upon discharge Status: Acute (2) Bandemia SIRS Assessment and Plan: * Criteria: leukocytosis, bandemia, fever, source: colitis * Infectious disease on board * Lactate <1.0 * Blood cultures (11/11/17): no growth after 24 hours X2 * Urine culture (11/11/17): no growth * Stool ova and parasite (11/12/17): no ova and parasite seen (3) Hypertension Assessment and Plan: * Home medication: Norvasc 5mg PO daily * Will hold BP med at thist [place] Status: Acute (4) Hypokalemia Assessment and Plan: * Attribute to GI losses: diarrhea * replete * Monitor K+ and Mg2+ Status: Acute (5) Abnormal UA Assessment and Plan: * Urine culture (11/11/17): no growth * Patient is on IV abx will cover for gram negative and anaerobes (6) Anemia Assessment and Plan: * unclear if dilutional since on IV fluids * will check cbc, reticulocyte count, b12, folate, ferritin and iron studies in AM blood work * Positive stool occult blood (7) Prophylactic measure Assessment and Plan: * + Stool occult blood * Hold chemical anticoagulation * Zofran 4mg IV Q6H PRN nausea/vomitting * Bacid 1 tab PO daily * pepcid 20mg PO daily * Morphine 2mg IV Q4H PRN severe pain * PT/OT eval Disposition: Monitor diarrheal movements. patient is on 3 IV abx; Started on maintenance Iv fluids. ID has requested for GI evaluation.
[2017-11-12 10:14] LABS: BANDS 22 % (0-2); EOSINOPHIL 1 % (0-4); LYMPHOCYTE 8 % (20-40); MONOCYTE 8 % (0-10); NEUTROPHIL 61 % (50-75); PLATELET ESTIMATE NORMAL (NORMAL); TOTAL CELLS COUNTED 100; TOXIC GRANULATION PRESENT
[2017-11-12] MEDS: Vancomycin 125 MG/5 ML SOLN (ORAL/RECTAL) PO SCH ×4 (10:37→22:42)
[2017-11-12] MEDS ORDERED: Potassium Chloride 20 mEq/15 ml LIQ UD PO ONE (13:36)
--- NOTE | 2017-11-12 16:51 | CP.PCM.PN ---
Subjective - Date & Time of Evaluation Date of Evaluation: 11/12/17 Time of Evaluation: 04:00 - Subjective Subjective: dictated Objective - Vital Signs/Intake and Output Vital Signs (last 24 hours): Temp Pulse Resp BP Pulse Ox 102.7 F H 125 H 20 105/68 95 11/12/17 16:00 11/12/17 15:00 11/12/17 15:00 11/12/17 15:00 11/12/17 15:00 Intake and Output: 11/12/17 11/12/17 06:59 18:59 Intake Total 250 610 Balance 250 610 - Medications Medications: Current Medications Acetaminophen (Tylenol 325mg Tab) 650 mg PO Q6 PRN PRN Reason: Fever >100.4 F Last Admin: 11/12/17 16:00 Dose: 650 mg Famotidine (Pepcid) 20 mg PO DAILY [facility] Last Admin: 11/12/17 10:37 Dose: 20 mg Metronidazole (Flagyl) 500 mg in 100 mls @ 100 mls/hr IVPB Q8H [facility] PRN Reason: Protocol Last Admin: 11/12/17 16:15 Dose: 100 mls/hr Potassium Chloride/Dextrose (Potassium Chl 20 Meq In D5w) 1,000 mls @ 100 mls/ hr IV .Q10H [facility] Lactobacillus Acidophilus (Bacid Acidophilus) 1 cap PO BID [facility] Ondansetron HCl (Zofran Inj) 4 mg IVP Q6H PRN PRN Reason: Nausea/Vomiting Vancomycin HCl (Vancocin (Oral Or Rectal Use)) 250 mg PO QID [facility] PRN Reason: Protocol Last Admin: 11/12/17 13:57 Dose: 250 mg - Labs Labs: 11/12/17 08:41 11/12/17 08:41 PT 18.2 SECONDS (9.7-12.2) H 11/11/17 08:28 INR 1.7 11/11/17 08:28 APTT 26 SECONDS (21-34) 11/11/17 08:28
[2017-11-12] MEDS: Meropenem 1 GM in Sodium Chloride 0.9% 100 ML IVPB SCH (17:58)
[2017-11-12] MEDS: Lactobacillus Acidophilus 500 MU Cap PO SCH (17:59)
[2017-11-12] MEDS: Potassium Ch 20mEq in D5W 1,000 ML IV SCH (17:59)
--- NOTE | 2017-11-12 21:09 | PN ---
DATE: 11/12/2017 SUBJECTIVE: The patient was seen today. She feels very weak. She also has a fever of 102.7 at this time. Heart rate is 125, blood pressure 105/68, respirations are 20. Head is atraumatic. She did say she had no diarrhea today. She did not have any fevers, but now she spiked a temperature to 102.7 and appears weak. PHYSICAL EXAMINATION: GENERAL: She is following commands. She denies any nausea and vomiting. HEENT: Head is atraumatic. She is normocephalic. Tongue is moist. NECK: Supple. LUNGS: Clear. HEART: S1, S2. Tachycardic little bit. ABDOMEN: Soft, nontender. No guarding, no rigidity present. Bowel sounds are present. EXTREMITIES: Have no edema. LABORATORY DATA: White count is 9.9, hemoglobin 10.2, hematocrit 29.3, platelet count is 264, bands are 22 today, lymphs are 8. Potassium is 3.2, creatinine is 0.5, and her sugar is 123. LFTs are unremarkable. Stool occult blood came out positive. Leukocytes came out positive. C. difficile is negative. Labs are noted. Cultures were done yesterday. Blood cultures are negative. Urine culture is negative. Ova and parasite was finalized and shows no ova and parasite on one sample. ASSESSMENT AND PLAN: At this time, the patient has spiking fevers and has Clostridium difficile negative. So at this time with this bandemia and Clostridium difficile negative, I am going to add Merrem to the present medications and give a stat dose right now. I would like to have a gastroenterology evaluation done to figure out why she has blood in the stool and wbc's still present and Clostridium difficile negative. We will continue, however, vancomycin p.o. and Flagyl IV and have ordered meropenem for now. Tylenol as needed and supplement of potassium was already done. We will follow and repeat labs tomorrow. We will follow with you. Grupo Sullivan MD
[2017-11-13] MEDS: metroNIDAZOLE IV 500 mg/100 ml 500 MG/100 ML BAG IVPB SCH ×3 (00:20→16:49)
[2017-11-13] MEDS: Meropenem 1 GM in Sodium Chloride 0.9% 100 ML IVPB SCH ×3 (00:20→16:49)
[2017-11-13] MEDS: Potassium Ch 20mEq in D5W 1,000 ML IV SCH ×3 (04:58→21:43)
--- NOTE | 2017-11-13 08:07 | CP.PCM.PN ---
<Marichuy Gatica V - Last Filed: 11/13/17 10:54> Objective - Vital Signs/Intake and Output Vital Signs (last 24 hours): Temp Pulse Resp BP Pulse Ox 97.7 F 89 20 95/58 L 95 11/13/17 08:00 11/13/17 08:00 11/13/17 08:00 11/13/17 08:00 11/13/17 08:00 Intake and Output: 11/13/17 11/13/17 06:59 18:59 Intake Total 1880 Balance 1880 - Medications Medications: Current Medications Acetaminophen (Tylenol 325mg Tab) 650 mg PO Q6 PRN PRN Reason: Fever >100.4 F Last Admin: 11/12/17 16:00 Dose: 650 mg Famotidine (Pepcid) 20 mg PO DAILY [facility] Last Admin: 11/13/17 10:03 Dose: 20 mg Metronidazole (Flagyl) 500 mg in 100 mls @ 100 mls/hr IVPB Q8H [facility] PRN Reason: Protocol Last Admin: 11/13/17 10:01 Dose: 100 mls/hr Potassium Chloride/Dextrose (Potassium Chl 20 Meq In D5w) 1,000 mls @ 100 mls/ hr IV .Q10H [facility] Last Admin: 11/13/17 04:58 Dose: Not Given Meropenem 1 gm/ Sodium (Chloride) 100 mls @ 100 mls/hr IVPB Q8H [facility] PRN Reason: Protocol Last Admin: 11/13/17 08:11 Dose: 100 mls/hr Lactobacillus Acidophilus (Bacid Acidophilus) 1 cap PO BID [facility] Last Admin: 11/13/17 10:03 Dose: 1 cap Ondansetron HCl (Zofran Inj) 4 mg IVP Q6H PRN PRN Reason: Nausea/Vomiting Last Admin: 11/12/17 17:58 Dose: 4 mg Vancomycin HCl (Vancocin (Oral Or Rectal Use)) 250 mg PO QID [facility] PRN Reason: Protocol Last Admin: 11/13/17 10:02 Dose: 250 mg - Labs Labs: 11/13/17 07:56 11/13/17 07:56 PT 18.2 SECONDS (9.7-12.2) H 11/11/17 08:28 INR 1.7 11/11/17 08:28 APTT 26 SECONDS (21-34) 11/11/17 08:28 - Constitutional Appears: Non-toxic, No Acute Distress, Cachectic - Head Exam Head Exam: NORMAL INSPECTION - Eye Exam Eye Exam: EOMI - ENT Exam ENT Exam: Mucous Membranes Moist - Respiratory Exam Respiratory Exam: Clear to Ausculation Bilateral, NORMAL BREATHING PATTERN. absent: Rales, Rhonchi, Wheezes - Cardiovascular Exam Cardiovascular Exam: REGULAR RHYTHM, +S1, +S2 - GI/Abdominal Exam GI & Abdominal Exam: Soft, Tenderness (mild), Hyperactive Bowel Sounds. absent : Distended, Firm, Guarding, Rigid, Rebound - Extremities Exam Extremities Exam: absent: Pedal Edema, Tenderness - Neurological Exam Neurological Exam: Alert, Awake, Oriented x3 - Psychiatric Exam Psychiatric exam: Normal Affect, Normal Mood - Skin Skin Exam: Dry, Intact, Normal Color, Warm Assessment and Plan (1) Abdominal pain Status: Acute (2) Bandemia Status: Acute (3) Diarrhea Status: Acute (4) Colitis Status: Acute (5) Failure of outpatient treatment Status: Acute (6) Hypertension Status: Chronic (7) Prophylactic measure Status: Acute Attending/Attestation - Attestation I have personally seen and examined this patient.: Yes I have fully participated in the care of the patient.: Yes I have reviewed all pertinent clinical information, including history, physical exam and plan: Yes Notes (Text): Patient seen, examined, and case discussed with certified medical dosimetrist. Patient seen this morning about 9:30AM with the resident. Patient reports she continues to have diarrhea, 5 movements, small, but liquid. Patient reports she feels weak. Patient was seen by GI this morning. Case discussed with Dr. Kenyon , will schedule patient for colonoscopy for Wednesday, given unclear etiology for colitis. Discussed with patient's daughter at bedside, who is aware. Ordered for EKG shows normal sinus rhythm. Patient has had a prior chest xray on which had no active disease. I have ordered for coagulation studies. Electrolytes repleted today. Assessment/Plan (1) Colitis Abdominal Pain Assessment and Plan: * Infectious Disease (Dr. Sullivan) on case-->help appreciated * GI (Dr. Kenyon) on the case-->help appreciated * For colonoscopy on Wednesday, . * Patient with recurrent colitis, positive stool leukocytes, and negative C. Dif, positive occult blood * Flagyl 500mg IVPB Q8H (active since 11/11/17) * Meropenem 1gm IVPB Q8H (active since 11/12/17) started on light of fever * Vancomycin 250mg PO QID (active since 11/11/17) * D51/2 NS with 20meq KCL at 75cc/hr * Tylenol 650mg PO Q6H PRN fever * Monitor diarrheal movements * Continues to have diarrhea * CT abdomen/pelvis (11/11/17): diffuse large bowel wall thickening more prominent of the right side consisent with pancolitis. mid small bowel wall thickening. No evidence of high grade bowel obstruction. No evidence of cholecystitis, pancreatitis or appendicitis. Prior Hospitalization: Imaging * CT abdomen/Pelvis with contrast (10/18/17): Nonspecific colitis involving distal descending and rectosigmoid colon. Mural thickening of gastric antrum common nonspecific. Consider follow-up with upper endoscopy. No other significant abnormality. * CT abdomen/Pelvis with PO and IV contrast (10/22/17): Findings may represent nonspecific infectious\inflammatory segmental colitis or diverticulitis involving the sigmoid colon or rectosigmoid junction no microperforation or abscess. Constipation no bowel contraption. * We'll advance to regular diet todya. Medications: * Cipro 400mg IV Q12H (active since 10/22/17) * Flagyl 500mg PO IV Q8H (active since 10/22/17) * completed PO antibiotics upon discharge Status: Acute (2) Bandemia SIRS Assessment and Plan: * Criteria: leukocytosis, bandemia, fever, source: colitis * Infectious disease on board * Lactate <1.0 * Blood cultures (11/11/17): no growth after 24 hours X2 * Urine culture (11/11/17): no growth * Stool ova and parasite (11/12/17): no ova and parasite seen (3) Hypertension Assessment and Plan: * Home medication: Norvasc 5mg PO daily * Will hold BP med at thist [place] Status: Acute (4) Hypokalemia Assessment and Plan: * Attribute to GI losses: diarrhea * replete * Monitor K+ and Mg2+ Status: Acute (5) Abnormal UA Assessment and Plan: * Urine culture (11/11/17): no growth * Patient is on IV abx will cover for gram negative and anaerobes (6) Anemia Assessment and Plan: * unclear if dilutional since on IV fluids * will check cbc, reticulocyte count, b12, folate, ferritin and iron studies--> follow-up * Positive stool occult blood (7) Prophylactic measure Assessment and Plan: * + Stool occult blood * Hold chemical anticoagulation * Zofran 4mg IV Q6H PRN nausea/vomitting * Bacid 1 tab PO daily * pepcid 20mg PO daily * Morphine 2mg IV Q4H PRN severe pain * PT/OT eval Disposition: Monitor diarrheal movements. patient is on 3 IV abx; Patient scheduled for colonoscopy for Wednesday, tentatively. Will order for preoperative workup to determine risk prior to colonoscopy. <Karla Baldwin - Last Filed: 11/13/17 19:42> Subjective - Date & Time of Evaluation Date of Evaluation: 11/13/17 Time of Evaluation: 08:07 - Subjective Subjective: Internal Medicine Progress Note - Hospitalist Service Patient seen and examined at bedside. Per nursing no acute events overnight. Patient reports that she had 5 small episodes of watery diarrhea this morning all before 11am. States that she occasionally experiences abdominal cramping. Reports feeling weak and having decreased appetite. Offers no other complaints at this time. Denies headaches, dizziness, cp, palpitations, sob, urinary symptoms. Objective - Vital Signs/Intake and Output Vital Signs (last 24 hours): Temp Pulse Resp BP Pulse Ox 98 F 87 20 104/65 94 L 11/13/17 00:00 11/13/17 00:00 11/13/17 00:00 11/13/17 00:00 11/13/17 00:00 Intake and Output: 11/13/17 11/13/17 06:59 18:59 Intake Total 1880 Balance 1880 - Medications Medications: Current Medications Acetaminophen (Tylenol 325mg Tab) 650 mg PO Q6 PRN PRN Reason: Fever >100.4 F Last Admin: 11/12/17 16:00 Dose: 650 mg Famotidine (Pepcid) 20 mg PO DAILY [facility] Last Admin: 11/12/17 10:37 Dose: 20 mg Metronidazole (Flagyl) 500 mg in 100 mls @ 100 mls/hr IVPB Q8H [facility] PR[facility] Reason: Protocol Last Admin: 11/13/17 00:20 Dose: 100 mls/hr Potassium Chloride/Dextrose (Potassium Chl 20 Meq In D5w) 1,000 mls @ 100 mls/ hr IV .Q10H [facility] Last Admin: 11/13/17 04:58 Dose: Not Given Meropenem 1 gm/ Sodium (Chloride) 100 mls @ 100 mls/hr IVPB Q8H [facility] PRN Reason: Protocol Last Admin: 11/13/17 00:20 Dose: 100 mls/hr Lactobacillus Acidophilus (Bacid Acidophilus) 1 cap PO BID [facility] Last Admin: 11/12/17 17:59 Dose: 1 cap Ondansetron HCl (Zofran Inj) 4 mg IVP Q6H [facility]N PRN Reason: Nausea/Vomiting Last Admin: 11/12/17 17:58 Dose: 4 mg Vancomycin HCl (Vancocin (Oral Or Rectal Use)) 250 mg PO QID [facility] PRN Reason: Protocol Last Admin: 11/12/17 22:42 Dose: 250 mg - Labs Labs: 11/12/17 08:41 11/12/17 08:41 PT 18.2 SECONDS (9.7-12.2) H 11/11/17 08:28 INR 1.7 11/11/17 08:28 APTT 26 SECONDS (21-34) 11/11/17 08:28 - Constitutional Appears: Well, Non-toxic, No Acute Distress, Cachectic - Head Exam Head Exam: NORMAL INSPECTION - Eye Exam Eye Exam: EOMI, Normal appearance - ENT Exam ENT Exam: Mucous Membranes Moist - Respiratory Exam Respiratory Exam: Clear to Ausculation Bilateral, NORMAL BREATHING PATTERN. absent: Rales, Rhonchi, Wheezes - Cardiovascular Exam Cardiovascular Exam: REGULAR RHYTHM, +S1, +S2 - GI/Abdominal Exam GI & Abdominal Exam: Soft, Tenderness. absent: Distended, Guarding, Rigid, Rebound - Extremities Exam Extremities Exam: Normal Inspection. absent: Pedal Edema, Tenderness - Back Exam Back Exam: NORMAL INSPECTION - Neurological Exam Neurological Exam: Alert, Awake, Oriented x3 - Psychiatric Exam Psychiatric exam: Normal Affect, Normal Mood - Skin Skin Exam: Dry, Normal Color, Warm Assessment and Plan - Assessment and Plan (Free Text) Assessment: A/P: Patient is a 72 year old female with past medical history of hypertension and depression presented to the ED with lower abdominal pain and diarrhea. Colitis/Abdominal pain -Stable, afebrile (tmax 102.7) -WBC 10.9, Bands 20 -CT abd/pelvis showed findings suggestive of diffuse large bowel thickening more prominent on the right side consistent with pancolitis. Mild small bowel wall thickening also noted. No evidence of high grade bowel obstruction. No evidence of cholecystitis, pancreatitis or appendicitis (see full report) -Patient for colonoscopy on Wednesday with GI, will begin prep on Wednesday -Stool occult positive, stool leukocytes positive, stool ova and parasites negative -C diff was negative, will repeat C diff -Antibiotics: Merrem 1gm Q8H (11/12/17), Vancomycin 250mg PO QID (11/11/17), Flagyl 500mg Q8H (11/11/17), Bacid 1 tab PO BID -Zofran 4mg Q6H prn nausea -Tylenol 650mg Po Q6H prn fever -GI on consult, Dr Kenyon, help appreciated -ID on consult, Dr Sullivan, help appreciated Anemia -Workup suggesting Iron deficiency etiology -Iron 21, TIBC 139, % saturation 15, stool occult positive -Patient for colonoscopy on Wednesday with GI -Consider starting PO Iron after infection has resolved Hypokalemia -Potassium 3.3 today, Magnesium 2.0 -Repleted, continue to monitor Hypertension -Patient is on Norvasc 5mg PO daily -Medication held in light of low BPs -Will monitor blood pressures and restart Norvasc if needed History of GERD -Pepcid 20mg PO daily History of Depression -Takes Lexapro 20mg PO as needed at home -Will continue to monitor GI/DVT ppx: -Pepcid 20mg PO daily -SCDs Plan discussed with Dr Marichuy Baldwin DO PGY-2
[2017-11-13 08:11] LABS: BASO % 0.4 % (0.0-2.0); EOS # 0.2 K/uL (0.0-0.7); EOS % 1.7 % (0.0-4.0); HEMOGLOBIN 11.5 g/dL (11.0-16.0); LYMPH # 0.9 K/uL (1.0-4.3); LYMPH % 8.1 % (20.0-40.0); MEAN CELL VOLUME 90.3 fL (81.0-99.0); MEAN CORPUSCULAR HGB CONC 34.3 g/dL (33.0-37.0); MEAN PLATELET VOLUME 9.1 fL (7.2-11.7); MONO # 0.9 K/uL (0.0-0.8); NEUT # 8.9 K/uL (1.8-7.0); NEUT % 81.8 % (50.0-75.0); NRBC % 0.1 % (0.0-2.0); PLATELET COUNT 293 K/uL (130-400); RBC 3.71 Mil/uL (3.80-5.20); RED CELL DISTRIBUTION WIDTH 13.7 % (11.5-14.5); WHITE BLOOD COUNT 10.9 K/uL (4.8-10.8)
[2017-11-13 08:28] LABS: ALBUMIN 2.4 g/dL (3.5-5.0); ALT/SGPT 26 U/L (9-52); AST/SGOT 17 U/L (14-36); BLOOD UREA NITROGEN 3 mg/dL (7-17); GFR AFRICAN-AMERICAN > 60; GFR NON-AFRICAN AMERICAN > 60
[2017-11-13] MEDS ORDERED: Potassium Chloride 20 mEq ER Tab PO ONE (08:45)
--- NOTE | 2017-11-13 09:59 | CP.PCM.CON ---
History of Present Illness - History of Present Illness History of Present Illness: CC: colitis HPI: GI service consult requested on this 72year old hypertensive patient of dr Tenorio who is admitted with abdominal pain, fever, and diarrhea. Symptoms first began October 18 and was treated and released from [facility]. She then presented to a few days later and was admitted for 3 days and managed by ID with antibiotics. Patient was readmitted a couple of days ago with abdominal pain and non bloody diarrhea, and is managed by ID with oral Vanco, Merem, Flagyl, and spiked a fever to 102 yesterday and GI consult was requested. Patient had Colonoscopy and EGD by Dr Christianson 2 years ago, essentially unremarkable according to the patient, records are presently unavailable. Patient denies family history of GI illnesses, travel history, antibiotic use. Review of Systems - Constitutional Constitutional: Chills, Fever, Malaise, Weakness - EENT Eyes: absent: Change in Vision Ears: absent: Decreased Hearing Nose/Mouth/Throat: absent: Nasal Discharge - Cardiovascular Cardiovascular: absent: Chest Pain - Respiratory Respiratory: absent: Dyspnea - Gastrointestinal Gastrointestinal: Abdominal Pain, Diarrhea, Nausea, Vomiting. absent: Hematochezia, Melena - Genitourinary Genitourinary: Dysuria - Integumentary Integumentary: absent: Rash, Jaundice - Neurological Neurological: absent: Abnormal Hearing, Memory Loss - Psychiatric Psychiatric: absent: Behavioral Changes - Endocrine Endocrine: absent: Polydipsia - Hematologic/Lymphatic Hematologic: absent: Easy Bleeding Past Patient History - Infectious Disease Hx of Infectious Diseases: None - Past Social History Smoking Status: Never Smoked Alcohol: None - CARDIAC Hx Hypertension: Yes - MUSCULOSKELETAL/RHEUMATOLOGICAL Hx Falls: No - GENITOURINARY/GYNECOLOGICAL Hx Genitourinary Disorders: No - PSYCHIATRIC Hx Depression: Yes Hx Substance Use: No - SURGICAL HISTORY Hx Hysterectomy: Yes Other/Comment: Lipoma - L breast - ANESTHESIA Hx Anesthesia: Yes Hx Anesthesia Reactions: No Hx Malignant Hyperthermia: No Meds Allergies/Adverse Reactions: Allergies Allergy/AdvReac Type Severity Reaction Status Date / Time No Known Allergies Allergy Verified 11/11/17 07:45 - Medications Medications: Current Medications Acetaminophen (Tylenol 325mg Tab) 650 mg PO Q6 PRN PRN Reason: Fever >100.4 F Last Admin: 11/12/17 16:00 Dose: 650 mg Famotidine (Pepcid) 20 mg PO DAILY [facility] Last Admin: 11/12/17 10:37 Dose: 20 mg Metronidazole (Flagyl) 500 mg in 100 mls @ 100 mls/hr IVPB Q8H [facility] PRN Reason: Protocol Last Admin: 11/13/17 00:20 Dose: 100 mls/hr Potassium Chloride/Dextrose (Potassium Chl 20 Meq In D5w) 1,000 mls @ 100 mls/ hr IV .Q10H [facility] Last Admin: 11/13/17 04:58 Dose: Not Given Meropenem 1 gm/ Sodium (Chloride) 100 mls @ 100 mls/hr IVPB Q8H [facility] PRN Reason: Protocol Last Admin: 11/13/17 08:11 Dose: 100 mls/hr Lactobacillus Acidophilus (Bacid Acidophilus) 1 cap PO BID [facility] Last Admin: 11/12/17 17:59 Dose: 1 cap Ondansetron HCl (Zofran Inj) 4 mg IVP Q6H PRN PRN Reason: Nausea/Vomiting Last Admin: 11/12/17 17:58 Dose: 4 mg Vancomycin HCl (Vancocin (Oral Or Rectal Use)) 250 mg PO QID [facility] PRN Reason: Protocol Last Admin: 11/12/17 22:42 Dose: 250 mg Physical Exam - Constitutional Appears: Well, No Acute Distress - Head Exam Head Exam: ATRAUMATIC, NORMOCEPHALIC - Eye Exam Eye Exam: Normal appearance. absent: Scleral icterus - ENT Exam ENT Exam: Normal Exam - Neck Exam Neck exam: Positive for: Normal Inspection - Respiratory Exam Respiratory Exam: Clear to Auscultation Bilateral - Cardiovascular Exam Cardiovascular Exam: REGULAR RHYTHM - GI/Abdominal Exam GI & Abdominal Exam: Soft. absent: Distended, Guarding, Mass, Rebound, Tenderness - Rectal Exam Rectal Exam: Deferred - Extremities Exam Extremities exam: Positive for: normal inspection - Back Exam Back exam: NORMAL INSPECTION - Neurological Exam Neurological exam: Alert, Oriented x3 - Psychiatric Exam Psychiatric exam: Normal Affect, Normal Mood - Skin Skin Exam: Normal Color Results - Vital Signs Recent Vital Signs: Last Vital Signs Temp 97.7 F 11/13/17 08:00 Pulse 89 11/13/17 08:00 Resp 20 11/13/17 08:00 BP 95/58 L 11/13/17 08:00 Pulse Ox 95 11/13/17 08:00 - Labs Result Diagrams: 11/13/17 07:56 11/13/17 07:56 Labs: Laboratory Results - last 24 hr 11/12/17 11/12/17 11/12/17 07:07 08:41 11:13 WBC RBC Hgb Hct MCV MCH MCHC RDW Plt Count MPV Neut % (Auto) Lymph % (Auto) [place] % (Auto) Eos % (Auto) Baso % (Auto) Neut # (Auto) Lymph # (Auto) [place] # (Auto) Eos # (Auto) Baso # (Auto) Neutrophils % (Manual) 61 Band Neutrophils % 22 H* Lymphocytes % (Manual) 8 L Monocytes % (Manual) 8 Eosinophils % (Manual) 1 Toxic Granulation Present Platelet Estimate Normal RBC Morphology Normal Sodium Potassium Chloride Carbon Dioxide Anion Gap BUN Creatinine Est GFR ( Amer) Est GFR (Non-Af Amer) POC Glucose (mg/dL) 146 H 167 H Random Glucose Calcium Phosphorus Magnesium Total Bilirubin AST ALT Alkaline Phosphatase Total Protein Albumin Globulin Albumin/Globulin Ratio 11/12/17 11/12/17 11/13/17 16:54 21:32 07:15 WBC RBC Hgb Hct MCV MCH MCHC RDW Plt Count MPV Neut % (Auto) Lymph % (Auto) [place] % (Auto) Eos % (Auto) Baso % (Auto) Neut # (Auto) Lymph # (Auto) [place] # (Auto) Eos # (Auto) Baso # (Auto) Neutrophils % (Manual) Band Neutrophils % Lymphocytes % (Manual) Monocytes % (Manual) Eosinophils % (Manual) Toxic Granulation Platelet Estimate RBC Morphology Sodium Potassium Chloride Carbon Dioxide Anion Gap BUN Creatinine Est GFR ( Amer) Est GFR (Non-Af Amer) POC Glucose (mg/dL) 111 H 157 H 137 H Random Glucose Calcium Phosphorus Magnesium Total Bilirubin AST ALT Alkaline Phosphatase Total Protein Albumin Globulin Albumin/Globulin Ratio 11/13/17 11/13/17 07:56 07:56 WBC 10.9 H RBC 3.71 L Hgb 11.5 Hct 33.5 L MCV 90.3 MCH 31.0 MCHC 34.3 RDW 13.7 Plt Count 293 MPV 9.1 Neut % (Auto) 81.8 H Lymph % (Auto) 8.1 L [place] % (Auto) 8.0 Eos % (Auto) 1.7 Baso % (Auto) 0.4 Neut # (Auto) 8.9 H Lymph # (Auto) 0.9 L [place] # (Auto) 0.9 H Eos # (Auto) 0.2 Baso # (Auto) 0.0 Neutrophils % (Manual) Band Neutrophils % Lymphocytes % (Manual) Monocytes % (Manual) Eosinophils % (Manual) Toxic Granulation Platelet Estimate RBC Morphology Sodium 136 Potassium 3.3 L Chloride 104 Carbon Dioxide 26 Anion Gap 10 BUN 3 L Creatinine 0.5 L Est GFR ( Amer) > 60 Est GFR (Non-Af Amer) > 60 POC Glucose (mg/dL) Random Glucose 127 H Calcium 8.0 L Phosphorus 2.7 Magnesium 2.0 Total Bilirubin 0.5 AST 17 ALT 26 Alkaline Phosphatase 80 Total Protein 4.9 L Albumin 2.4 L Globulin 2.5 Albumin/Globulin Ratio 1.0 Assessment & Plan (1) Colitis Assessment and Plan: Undetermined cause based on history and stool studies Will need colonoscopy, tentatively scheduled for Wednesday Discussed with Dr Gatica Status: Acute (2) Hypertension Assessment and Plan: Management per primary medical team Status: Chronic
[2017-11-13] MEDS: Vancomycin 125 MG/5 ML SOLN (ORAL/RECTAL) PO SCH ×4 (10:02→21:42)
[2017-11-13] MEDS: Lactobacillus Acidophilus 500 MU Cap PO SCH ×2 (10:03→17:58)
[2017-11-13 10:20] LABS: ANISOCYTOSIS SLIGHT; BANDS 20 % (0-2); BASOPHIL 1 % (0-2); EOSINOPHIL 2 % (0-4); LYMPHOCYTE 3 % (20-40); MONOCYTE 3 % (0-10); NEUTROPHIL 71 % (50-75); PLATELET ESTIMATE NORMAL (NORMAL); POIKILOCYTOSIS SLIGHT; TOTAL CELLS COUNTED 100
[2017-11-13 10:21] LABS: BURR CELLS SLIGHT; LARGE PLATELETS PRESENT; OVALOCYTES SLIGHT; TOXIC GRANULATION PRESENT
[2017-11-13 11:46] LABS: INR 1.8; PROTHROMBIN TIME 20.1 SECONDS (9.7-12.2)
[2017-11-13] MEDS ORDERED: Potassium Chloride 20 mEq/15 ml LIQ UD PO ONE (13:15)
[2017-11-13 14:16] LABS: FOLATE 10.9 ng/mL
[2017-11-13 14:18] LABS: IRON 21 ug/dL (37-170)
[2017-11-13 14:26] LABS: % IRON SATURATION 15 (20-55); TOTAL IRON BINDING CAPACITY 139 ug/dL (250-450)
--- NOTE | 2017-11-13 15:14 | CP.PCM.PN ---
Subjective - Date & Time of Evaluation Date of Evaluation: 11/13/17 Time of Evaluation: 02:30 - Subjective Subjective: dictated Objective - Vital Signs/Intake and Output Vital Signs (last 24 hours): Temp Pulse Resp BP Pulse Ox 97.7 F 89 20 95/58 L 95 11/13/17 08:00 11/13/17 08:00 11/13/17 08:00 11/13/17 08:00 11/13/17 08:00 Intake and Output: 11/13/17 11/13/17 06:59 18:59 Intake Total 1880 Balance 1880 - Medications Medications: Current Medications Acetaminophen (Tylenol 325mg Tab) 650 mg PO Q6 PRN PRN Reason: Fever >100.4 F Last Admin: 11/12/17 16:00 Dose: 650 mg Famotidine (Pepcid) 20 mg PO DAILY [facility] Last Admin: 11/13/17 10:03 Dose: 20 mg Metronidazole (Flagyl) 500 mg in 100 mls @ 100 mls/hr IVPB Q8H [facility] PRN Reason: Protocol Last Admin: 11/13/17 10:01 Dose: 100 mls/hr Potassium Chloride/Dextrose (Potassium Chl 20 Meq In D5w) 1,000 mls @ 100 mls/ hr IV .Q10H [facility] Last Admin: 11/13/17 08:00 Dose: 100 mls/hr Meropenem 1 gm/ Sodium (Chloride) 100 mls @ 100 mls/hr IVPB Q8H [facility] PRN Reason: Protocol Last Admin: 11/13/17 08:11 Dose: 100 mls/hr Lactobacillus Acidophilus (Bacid Acidophilus) 1 cap PO BID [facility] Last Admin: 11/13/17 10:03 Dose: 1 cap Ondansetron HCl (Zofran Inj) 4 mg IVP Q6H [facility] PRN Reason: Nausea/Vomiting Last Admin: 11/12/17 17:58 Dose: 4 mg Vancomycin HCl (Vancocin (Oral Or Rectal Use)) 250 mg PO QID [facility] PRN Reason: Protocol Last Admin: 11/13/17 13:55 Dose: 250 mg - Labs Labs: 11/13/17 07:56 11/13/17 07:56 PT 20.1 SECONDS (9.7-12.2) H 11/13/17 11:31 INR 1.8 11/13/17 11:31 APTT 26 SECONDS (21-34) 11/11/17 08:28
--- NOTE | 2017-11-13 20:54 | PN ---
DATE: 11/13/2017 SUBJECTIVE: The patient was seen today. Her daughter was at the bedside. Today, she has no fever; however, and she also did not have anymore bowel movements, however, she still feels weak. Her blood pressure is on the low side. She was seen by and she says colonoscopy will be done on Wednesday and it is needed as she has pancolitis and etiology of which is unclear at this time. She has had antibiotics in the past. She also had C. diff, which was negative and so I still left her on the treatment for C. diff and added meropenem and she spiked to 102.7 yesterday. PHYSICAL EXAMINATION VITAL SIGNS: T-max is 97.7 today, pulse 89, blood pressure 95/58, respirations are 20. GENERAL: She has some lower abdominal pain. Denies any nausea or vomiting. HEENT: Head is atraumatic. NECK: Supple. Lungs: Clear. No crackles or rales present. HEART: S1, S2 is regular. ABDOMEN: Has vague tenderness. No guarding. No rigidity present. EXTREMITIES: Have no edema, clubbing or cyanosis. LABORATORY DATA: Labs are noted. White count is 10.9 today, hemoglobin is 11.5, hematocrit 33.5, platelet count is 293 and bands still remain 20, so she has severe bandemia. Haptoglobins are 322 and her chemistry shows potassium is 3.3. It is probably supplemented by the resident and micro shows blood cultures are negative. Stool culture showed no Salmonella . There was no ova or parasite seen; however, she needs a colonoscopy. We will also send for other blood studies and we will continue with the meropenem and Flagyl at this time and vanco p.o. and we will wait to see what GI arthur does as she has severe bandemia present. We will follow. Grupo Sullivan MD
[2017-11-14] MEDS: Meropenem 1 GM in Sodium Chloride 0.9% 100 ML IVPB SCH ×3 (01:03→17:42)
[2017-11-14 06:55] LABS: BASO % 0.4 % (0.0-2.0); EOS # 0.1 K/uL (0.0-0.7); EOS % 1.9 % (0.0-4.0); HEMOGLOBIN 10.5 g/dL (11.0-16.0); LYMPH # 0.9 K/uL (1.0-4.3); LYMPH % 11.2 % (20.0-40.0); MEAN CORPUSCULAR HEMOGLOBIN 30.8 pg (27.0-31.0); MEAN CORPUSCULAR HGB CONC 34.3 g/dL (33.0-37.0); MEAN PLATELET VOLUME 8.6 fL (7.2-11.7); MONO # 0.7 K/uL (0.0-0.8); MONO % 8.6 % (0.0-10.0); NEUT # 6.3 K/uL (1.8-7.0); NEUT % 77.9 % (50.0-75.0); RBC 3.42 Mil/uL (3.80-5.20); RED CELL DISTRIBUTION WIDTH 13.7 % (11.5-14.5); WHITE BLOOD COUNT 8.1 K/uL (4.8-10.8)
[2017-11-14 07:12] LABS: ALB/GLOB RATIO 0.9 (1.0-2.1); ALBUMIN 2.3 g/dL (3.5-5.0); ALT/SGPT 25 U/L (9-52); AST/SGOT 14 U/L (14-36); BLOOD UREA NITROGEN 3 mg/dL (7-17); GFR AFRICAN-AMERICAN > 60; GFR NON-AFRICAN AMERICAN > 60
[2017-11-14] MEDS ORDERED: Potassium Chloride 20 mEq ER Tab PO ONE (08:15)
--- NOTE | 2017-11-14 10:20 | CP.PCM.PN ---
<Karla Baldwin - Last Filed: 11/14/17 10:31> Subjective - Date & Time of Evaluation Date of Evaluation: 11/14/17 Time of Evaluation: 10:14 - Subjective Subjective: Internal Medicine Progress Note - Hospitalist Service Patient seen and examined at bedside. Per nursing no acute events overnight. Patient states that she is not feeling better. Reports that she is still having diarrhea with abdominal pain. States that she is feeling weak and nauseous. She is tolerated her diet. For colonoscopy tomorrow. Denies headaches, dizziness, cp , palpitations, sob, urinary symptoms. Objective - Vital Signs/Intake and Output Vital Signs (last 24 hours): Temp Pulse Resp BP Pulse Ox 98.8 F 60 20 115/61 95 11/14/17 00:00 11/14/17 02:00 11/14/17 02:00 11/14/17 02:00 11/14/17 02:00 Intake and Output: 11/14/17 11/14/17 06:59 18:59 Intake Total 2100 Balance 2100 - Medications Medications: Current Medications Acetaminophen (Tylenol 325mg Tab) 650 mg PO Q6 PRN PRN Reason: Fever >100.4 F Last Admin: 11/12/17 16:00 Dose: 650 mg Famotidine (Pepcid) 20 mg PO DAILY [facility] Last Admin: 11/13/17 10:03 Dose: 20 mg Metronidazole (Flagyl) 500 mg in 100 mls @ 100 mls/hr IVPB Q8H [facility] PRN Reason: Protocol Last Admin: 11/14/17 00:00 Dose: 100 mls/hr Potassium Chloride/Dextrose (Potassium Chl 20 Meq In D5w) 1,000 mls @ 100 mls/ hr IV .Q10H [facility] Last Admin: 11/13/17 21:43 Dose: 100 mls/hr Meropenem 1 gm/ Sodium (Chloride) 100 mls @ 100 mls/hr IVPB Q8H [facility] PRN Reason: Protocol Last Admin: 11/14/17 01:03 Dose: 100 mls/hr Lactobacillus Acidophilus (Bacid Acidophilus) 1 cap PO BID [facility] Last Admin: 11/13/17 17:58 Dose: 1 cap Ondansetron HCl (Zofran Inj) 4 mg IVP Q6H PRN PRN Reason: Nausea/Vomiting Last Admin: 11/12/17 17:58 Dose: 4 mg Vancomycin HCl (Vancocin (Oral Or Rectal Use)) 250 mg PO QID [facility] PRN Reason: Protocol Last Admin: 11/13/17 21:42 Dose: 250 mg - Labs Labs: 11/14/17 06:47 11/14/17 06:47 PT 20.1 SECONDS (9.7-12.2) H 11/13/17 11:31 INR 1.8 11/13/17 11:31 APTT 26 SECONDS (21-34) 11/11/17 08:28 - Additional Findings Additional findings: - Constitutional Appears: Well, Non-toxic, No Acute Distress, Cachectic - Head Exam Head Exam: NORMAL INSPECTION - Eye Exam Eye Exam: EOMI, Normal appearance - ENT Exam ENT Exam: Mucous Membranes Moist - Respiratory Exam Respiratory Exam: Clear to Ausculation Bilateral, NORMAL BREATHING PATTERN. absent: Rales, Rhonchi, Wheezes - Cardiovascular Exam Cardiovascular Exam: REGULAR RHYTHM, +S1, +S2 - GI/Abdominal Exam GI & Abdominal Exam: Soft, Tenderness (mild). absent: Distended, Guarding, Rigid, Rebound - Extremities Exam Extremities Exam: Normal Inspection. absent: Pedal Edema, Tenderness - Back Exam Back Exam: NORMAL INSPECTION - Neurological Exam Neurological Exam: Alert, Awake, Oriented x3 - Psychiatric Exam Psychiatric exam: Normal Affect, Normal Mood - Skin Skin Exam: Dry, Normal Color, Warm Assessment and Plan - Assessment and Plan (Free Text) Assessment: A/P: Patient is a 72 year old female with past medical history of hypertension and depression presented to the ED with lower abdominal pain and diarrhea. Colitis/Abdominal pain -Stable, afebrile, WBC 8.9 -Patient is for Colonoscopy on Wednesday, will begin prep tonight -Stool occult collected on 11/11 positive , stool leukocytes collected on 11/12 positive, stool ova and parasites negative -C diff collected on 11/11 was negative, repeat C diff collected on 11/13 is also negative -Antibiotics: Merrem 1gm Q8H (11/12/17), Vancomycin 250mg PO QID (11/11/17), Flagyl 500mg Q8H (11/11/17), Bacid 1 tab PO BID -Increased IV fluid hydration D5W with Kcl @ 125cc/hr -Zofran 4mg Q6H prn nausea -Tylenol 650mg PO Q6H prn fever -CT abd/pelvis showed findings suggestive of diffuse large bowel thickening more prominent on the right side consistent with pancolitis. Mild small bowel wall thickening also noted. No evidence of high grade bowel obstruction. No evidence of cholecystitis, pancreatitis or appendicitis (see full report) -GI on consult, Dr Kenyon, help appreciated -ID on consult, Dr Sullivan, help appreciated Anemia -Workup suggesting Iron deficiency etiology -Iron 21, TIBC 139, % saturation 15, stool occult positive -Patient for colonoscopy on Wednesday with GI -Consider starting PO Iron after infection has resolved Hypokalemia -Potassium 3.8 today, Magnesium 2.0 -Repleted, continue to monitor Hypophosphatemia -Phos 2.4 today -Neuto-phos 1 pkt ordered Hypertension -Patient is on Norvasc 5mg PO daily -Medication held in light of low BPs -Will monitor blood pressures and restart Norvasc if needed History of GERD -Pepcid 20mg PO daily History of Depression -Takes Lexapro 20mg PO as needed at home -Will continue to monitor GI/DVT ppx: -Pepcid 20mg PO daily -SCDs (no chemical DVT ppx, stool occult positive) Plan discussed with Dr Ykaelin Baldwin DO PGY-2 <Archana Hamlin - Last Filed: 11/17/17 19:43> Objective - Vital Signs/Intake and Output Vital Signs (last 24 hours): Temp Pulse Resp BP Pulse Ox 99 F 71 18 119/74 96 11/17/17 16:00 11/17/17 16:00 11/17/17 16:00 11/17/17 16:00 11/17/17 16:00 Intake and Output: 11/17/17 11/18/17 18:59 06:59 Intake Total 600 Balance 600 - Medications Medications: Current Medications Acetaminophen (Tylenol 325mg Tab) 650 mg PO Q6 PRN PRN Reason: Fever >100.4 F Last Admin: 11/12/17 16:00 Dose: 650 mg Potassium Chloride/Dextrose (Potassium Chl 20 Meq In D5w) 1,000 mls @ 75 mls/ hr IV .[id number] [facility] Last Admin: 11/17/17 11:39 Dose: 75 mls/hr Lactobacillus Acidophilus (Bacid Acidophilus) 1 cap PO BID [facility] Last Admin: 11/17/17 17:52 Dose: 1 cap Metronidazole (Flagyl) 500 mg PO Q8H [facility] Last Admin: 11/17/17 17:52 Dose: 500 mg Ondansetron HCl (Zofran Inj) 4 mg IVP Q6H PRN PRN Reason: Nausea/Vomiting Last Admin: 11/16/17 18:42 Dose: 4 mg Vancomycin HCl (Vancocin (Oral Or Rectal Use)) 250 mg PO QID [facility] PRN Reason: Protocol Last Admin: 11/17/17 17:52 Dose: 250 mg - Labs Labs: 11/17/17 07:45 11/17/17 07:45 PT 19.0 SECONDS (9.7-12.2) H 11/15/17 06:52 INR 1.7 11/15/17 06:52 APTT 26 SECONDS (21-34) 11/11/17 08:28 Attending/Attestation - Attestation I have personally seen and examined this patient.: Yes I have fully participated in the care of the patient.: Yes I have reviewed all pertinent clinical information, including history, physical exam and plan: Yes Notes (Text): Seen and examined by me.Patien was lying comfortable,Has diarrhea and abdominal pain Patient is going for colonoscopy tomorrow On examination she has mild abdominal tenderness We will continue antibiotics as per ID, Vanco oral,flagyl and bacid Assessment and the plan discussed with the resident and I agree with the documentation
--- NOTE | 2017-11-14 10:50 | CP.PCM.PN ---
Subjective - Date & Time of Evaluation Date of Evaluation: 11/14/17 Time of Evaluation: 10:47 - Subjective Subjective: Continues to have abdominal pain and diarrhea though less than yesterday Objective - Vital Signs/Intake and Output Vital Signs (last 24 hours): Temp Pulse Resp BP Pulse Ox 98.8 F 60 20 115/61 95 11/14/17 00:00 11/14/17 02:00 11/14/17 02:00 11/14/17 02:00 11/14/17 02:00 Intake and Output: 11/14/17 11/14/17 06:59 18:59 Intake Total 2100 Balance 2100 - Medications Medications: Current Medications Acetaminophen (Tylenol 325mg Tab) 650 mg PO Q6 PRN PRN Reason: Fever >100.4 F Last Admin: 11/12/17 16:00 Dose: 650 mg Famotidine (Pepcid) 20 mg PO DAILY [facility] Last Admin: 11/13/17 10:03 Dose: 20 mg Metronidazole (Flagyl) 500 mg in 100 mls @ 100 mls/hr IVPB Q8H [facility] PRN Reason: Protocol Last Admin: 11/14/17 00:00 Dose: 100 mls/hr Meropenem 1 gm/ Sodium (Chloride) 100 mls @ 100 mls/hr IVPB Q8H [facility] PRN Reason: Protocol Last Admin: 11/14/17 01:03 Dose: 100 mls/hr Potassium Chloride/Dextrose (Potassium Chl 20 Meq In D5w) 1,000 mls @ 125 mls/ hr IV .Q8H [facility] Lactobacillus Acidophilus (Bacid Acidophilus) 1 cap PO BID [facility] Last Admin: 11/13/17 17:58 Dose: 1 cap Ondansetron HCl (Zofran Inj) 4 mg IVP Q6H [facility] PRN Reason: Nausea/Vomiting Last Admin: 11/12/17 17:58 Dose: 4 mg Vancomycin HCl (Vancocin (Oral Or Rectal Use)) 250 mg PO QID [facility] PRN Reason: Protocol Last Admin: 11/13/17 21:42 Dose: 250 mg - Labs Labs: 11/14/17 06:47 11/14/17 06:47 PT 20.1 SECONDS (9.7-12.2) H 11/13/17 11:31 INR 1.8 11/13/17 11:31 APTT 26 SECONDS (21-34) 11/11/17 08:28 - Constitutional Appears: No Acute Distress - Head Exam Head Exam: NORMOCEPHALIC - Respiratory Exam Respiratory Exam: Clear to Ausculation Bilateral - Cardiovascular Exam Cardiovascular Exam: REGULAR RHYTHM - GI/Abdominal Exam GI & Abdominal Exam: Soft. absent: Tenderness Assessment and Plan (1) Colitis Assessment & Plan: Undetermined cause Needs Colonoscopy with biopsy and stool aspirate, scheduled for tomorrow INR elevated- will repeat prior to colonoscopy Discussed at length with adolfo on 11/13 Status: Acute (2) Hypertension Status: Chronic
[2017-11-14] MEDS: Lactobacillus Acidophilus 500 MU Cap PO SCH ×2 (10:51→17:58)
[2017-11-14] MEDS: metroNIDAZOLE IV 500 mg/100 ml 500 MG/100 ML BAG IVPB SCH ×3 (10:57→17:41)
[2017-11-14] MEDS: Vancomycin 125 MG/5 ML SOLN (ORAL/RECTAL) PO SCH ×4 (11:00→22:16)
[2017-11-14] MEDS: Potassium & Sodium Phosphate PO ONE ×2 (11:06→14:58)
[2017-11-14] MEDS: Potassium Ch 20mEq in D5W 1,000 ML IV SCH ×2 (14:59→19:39)
[2017-11-14] MEDS ORDERED: Bisacodyl 5mg EC Tab PO ONE (18:00)
[2017-11-14] MEDS ORDERED: Peg-Electrolyte Oral Soln 4L (Golytely) PO ONE (19:00)
[2017-11-15] MEDS: metroNIDAZOLE IV 500 mg/100 ml 500 MG/100 ML BAG IVPB SCH ×2 (00:02→08:52)
[2017-11-15] MEDS: Meropenem 1 GM in Sodium Chloride 0.9% 100 ML IVPB SCH ×2 (01:07→08:47)
[2017-11-15] MEDS: Potassium Ch 20mEq in D5W 1,000 ML IV SCH ×4 (03:30→16:55)
[2017-11-15 07:06] LABS: INR 1.7
[2017-11-15 07:32] LABS: BASO % 0.6 % (0.0-2.0); EOS # 0.1 K/uL (0.0-0.7); EOS % 1.4 % (0.0-4.0); HEMOGLOBIN 11.4 g/dL (11.0-16.0); LYMPH # 0.8 K/uL (1.0-4.3); LYMPH % 12.2 % (20.0-40.0); MEAN CORPUSCULAR HEMOGLOBIN 31.5 pg (27.0-31.0); MEAN PLATELET VOLUME 8.4 fL (7.2-11.7); MONO # 0.6 K/uL (0.0-0.8); MONO % 8.7 % (0.0-10.0); NEUT # 5.1 K/uL (1.8-7.0); NEUT % 77.1 % (50.0-75.0); RBC 3.63 Mil/uL (3.80-5.20); RED CELL DISTRIBUTION WIDTH 13.2 % (11.5-14.5); WHITE BLOOD COUNT 6.6 K/uL (4.8-10.8)
[2017-11-15 07:37] LABS: ALBUMIN 2.6 g/dL (3.5-5.0); ALT/SGPT 32 U/L (9-52); AST/SGOT 31 U/L (14-36); BLOOD UREA NITROGEN < 2 mg/dL (7-17); GFR AFRICAN-AMERICAN > 60; GFR NON-AFRICAN AMERICAN > 60
[2017-11-15] MEDS ORDERED: Peg-Electrolyte Oral Soln 4L (Golytely) PO ONE (08:00)
--- NOTE | 2017-11-15 09:52 | CP.PCM.PN ---
<Morgan Pizarro - Last Filed: 11/15/17 20:50> Subjective - Date & Time of Evaluation Date of Evaluation: 11/15/17 Time of Evaluation: 09:50 - Subjective Subjective: Progress Note for Hospitalist service. Patient seen and examined at bedside. She states she has been feeling weak, with abdominal pain, nausea, diarrhea. She is scheduled for colonoscopy today, for which she has taken colonic prep. She denies vomiting, fevers, chest pain, shortness of breath, palpitations, calf pain or swelling, dysuria. Objective - Vital Signs/Intake and Output Vital Signs (last 24 hours): Temp Pulse Resp BP Pulse Ox 98 F 61 20 134/75 96 11/15/17 07:50 11/15/17 07:50 11/15/17 07:50 11/15/17 07:50 11/15/17 07:50 Intake and Output: 11/15/17 11/15/17 06:59 18:59 Intake Total 3950 Output Total 5 Balance 3945 - Medications Medications: Current Medications Acetaminophen (Tylenol 325mg Tab) 650 mg PO Q6 PRN PRN Reason: Fever >100.4 F Last Admin: 11/12/17 16:00 Dose: 650 mg Famotidine (Pepcid) 20 mg PO DAILY [facility] Last Admin: 11/14/17 10:51 Dose: 20 mg Metronidazole (Flagyl) 500 mg in 100 mls @ 100 mls/hr IVPB Q8H [facility] PRN Reason: Protocol Last Admin: 11/15/17 08:52 Dose: 100 mls/hr Meropenem 1 gm/ Sodium (Chloride) 100 mls @ 100 mls/hr IVPB Q8H [facility] PRN Reason: Protocol Last Admin: 11/15/17 08:47 Dose: 100 mls/hr Potassium Chloride/Dextrose (Potassium Chl 20 Meq In D5w) 1,000 mls @ 125 mls/ hr IV .Q8H [facility] Last Admin: 11/15/17 07:10 Dose: 125 mls/hr Potassium Chloride (Potassium Chloride 20 Meq/100 Ml) 20 meq in 100 mls @ 50 mls/hr IVPB ONCE ONE Stop: 11/15/17 11:29 Potassium Chloride (Potassium Chloride 20 Meq/100 Ml) 20 meq in 100 mls @ 50 mls/hr IVPB ONCE ONE Stop: 11/15/17 13:29 Lactobacillus Acidophilus (Bacid Acidophilus) 1 cap PO BID [facility] Last Admin: 11/14/17 17:58 Dose: 1 cap Ondansetron HCl (Zofran Inj) 4 mg IVP Q6H [facility] PRN Reason: Nausea/Vomiting Last Admin: 11/12/17 17:58 Dose: 4 mg Vancomycin HCl (Vancocin (Oral Or Rectal Use)) 250 mg PO QID [facility] PRN Reason: Protocol Last Admin: 11/14/17 22:16 Dose: 250 mg - Labs Labs: 11/15/17 06:52 11/15/17 06:52 PT 19.0 SECONDS (9.7-12.2) H 11/15/17 06:52 INR 1.7 11/15/17 06:52 APTT 26 SECONDS (21-34) 11/11/17 08:28 - Head Exam Head Exam: ATRAUMATIC, NORMOCEPHALIC - Eye Exam Eye Exam: EOMI, PERRL - ENT Exam ENT Exam: Mucous Membranes Dry - Respiratory Exam Respiratory Exam: Clear to Ausculation Bilateral, NORMAL BREATHING PATTERN. absent: Rales, Rhonchi, Wheezes - Cardiovascular Exam Cardiovascular Exam: REGULAR RHYTHM, +S1, +S2 - GI/Abdominal Exam GI & Abdominal Exam: Soft, Tenderness (Diffusely), Hyperactive Bowel Sounds. absent: Firm, Guarding, Rigid - Extremities Exam Extremities Exam: Normal Capillary Refill. absent: Calf Tenderness, Pedal Edema - Back Exam Back Exam: CVA tenderness (R) (minimal right CVA tenderness ). absent: CVA tenderness (L) - Neurological Exam Neurological Exam: Alert, Awake, Oriented x3 Neuro motor strength exam: Right Lower Extremity: 5 - Skin Skin Exam: Dry, Intact, Warm Assessment and Plan - Assessment and Plan (Free Text) Plan: A/P Colitis/Abdominal pain - Stable, afebrile, white count at 6.6, downtrending - Colonoscopy performed 11/15/17. Report revealed pseudomembranous colitis with diverticulosis in the sigmoid colon. Recommended advancing diet as tolerated, Vancomycin PO 250mg QID for 2 weeks, Check stool for ova and parasites on 3 separate stool specimens. Check stool for C dif toxin. Check routine bacterial stool cultures. Discontinue Merrem. ID follow up. - Stool occult collected on 11/11 positive , stool leukocytes collected on 11/12 positive, stool ova and parasites negative (11/12/17) - C diff collected on 11/11 was negative, repeat C diff collected on 11/13 is also negative, 11/14 negative, 11/15 negative - Blood cultures from 11/11/17 pending - Stool cultures from 11/11/17 no salmonella, shigella or campylobacter - Urine culture 11/11/17 no growth - IV Antibiotics: Merrem 1gm Q8H (11/12/17) --> discontinued 11/15/17 Vancomycin 250mg PO QID (11/11/17), continue Flagyl 500mg Q8H (11/11/17), continue Bacid 1 tab PO BID -IV fluid hydration D5W with Kcl @ 75cc/hr -Zofran 4mg Q6H prn nausea -Tylenol 650mg PO Q6H prn fever -CT abd/pelvis showed findings suggestive of diffuse large bowel thickening more prominent on the right side consistent with pancolitis. Mild small bowel wall thickening also noted. No evidence of high grade bowel obstruction. No evidence of cholecystitis, pancreatitis or appendicitis (see full report) -GI on consult, Dr Kenyon, help appreciated -ID on consult, Dr Sullivan, help appreciated Anemia -Workup suggesting Iron deficiency etiology -Iron 21, TIBC 139, % saturation 15, stool occult positive -Consider starting PO Iron after infection has resolved Hypokalemia -Potassium 3.3 today, Magnesium 2.0 -Repleted, continue to monitor Right CVA tenderness, mild Continue to monitor UA 11/11/17 1+ protein, 1+ blood, WBC 9, trace leuk esterase UA 11/11/17 1+ blood, 1 WBC, neg leuk esterase Urine culture 11/11/17 no growth Hypertension -Patient is on Norvasc 5mg PO daily at home -Medication held in light of low BPs -Will monitor blood pressures and restart Norvasc if needed History of GERD -Pepcid 20mg PO daily History of Depression -Takes Lexapro 20mg PO "as needed" at home -Will continue to monitor GI/DVT ppx: -Pepcid 20mg PO daily -SCDs (no chemical DVT ppx, stool occult positive) Morgan Pizarro, PGYI Case discussed with Dr. Hamlin <Archana Hamlin - Last Filed: 11/20/17 14:36> Objective - Vital Signs/Intake and Output Vital Signs (last 24 hours): Temp Pulse Resp BP Pulse Ox 97.9 F 65 20 102/62 96 11/18/17 07:32 11/18/17 07:32 11/18/17 07:32 11/18/17 07:32 11/18/17 07:32 - Labs Labs: 11/18/17 07:25 11/18/17 07:25 PT 19.0 SECONDS (9.7-12.2) H 11/15/17 06:52 INR 1.7 11/15/17 06:52 APTT 26 SECONDS (21-34) 11/11/17 08:28 Attending/Attestation - Attestation I have personally seen and examined this patient.: Yes I have fully participated in the care of the patient.: Yes I have reviewed all pertinent clinical information, including history, physical exam and plan: Yes Notes (Text): Seen and examined. patient has mild abdominal pain and diarrhea. s/p Colonoscopy 1. Pseudomembranous colitis 2. Diarrhea 3. anemia 4.GERD 5.Hypertension assessment and the plan discussed with the resident I agree with the documentation
[2017-11-15] MEDS: Vancomycin 125 MG/5 ML SOLN (ORAL/RECTAL) PO SCH ×5 (10:14→21:42)
[2017-11-15] MEDS: Lactobacillus Acidophilus 500 MU Cap PO SCH ×2 (10:14→17:58)
[2017-11-15] MEDS ORDERED: Propofol 10 mg/ml Inj (20 ML) ONE (13:12)
[2017-11-15] MEDS ORDERED: Midazolam 2 MG/2 ML VIAL ONE (13:12)
--- NOTE | 2017-11-15 18:43 | CP.PCM.PN ---
Subjective - Date & Time of Evaluation Date of Evaluation: 11/15/17 Time of Evaluation: 03:15 - Subjective Subjective: dictated Objective - Vital Signs/Intake and Output Vital Signs (last 24 hours): Temp Pulse Resp BP Pulse Ox 98.1 F 59 L 20 145/77 94 L 11/15/17 15:02 11/15/17 15:02 11/15/17 15:02 11/15/17 15:02 11/15/17 15:02 Intake and Output: 11/15/17 11/15/17 06:59 18:59 Intake Total 3950 1300 Output Total 5 Balance 3945 1300 - Medications Medications: Current Medications Acetaminophen (Tylenol 325mg Tab) 650 mg PO Q6 PRN PRN Reason: Fever >100.4 F Last Admin: 11/12/17 16:00 Dose: 650 mg Famotidine (Pepcid) 20 mg PO DAILY [facility] Last Admin: 11/15/17 10:14 Dose: 20 mg Potassium Chloride/Dextrose (Potassium Chl 20 Meq In D5w) 1,000 mls @ 75 mls/ hr IV .[id number] [facility] Last Admin: 11/15/17 16:55 Dose: Not Given Lactobacillus Acidophilus (Bacid Acidophilus) 1 cap PO BID [facility] Last Admin: 11/15/17 17:58 Dose: 1 cap Metronidazole (Flagyl) 500 mg PO Q8H [facility] Last Admin: 11/15/17 18:07 Dose: Not Given Ondansetron HCl (Zofran Inj) 4 mg IVP Q6H PRN PRN Reason: Nausea/Vomiting Last Admin: 11/12/17 17:58 Dose: 4 mg Vancomycin HCl (Vancocin (Oral Or Rectal Use)) 250 mg PO QID [facility] PRN Reason: Protocol Last Admin: 11/15/17 17:58 Dose: 250 mg - Labs Labs: 11/15/17 06:52 11/15/17 06:52 PT 19.0 SECONDS (9.7-12.2) H 11/15/17 06:52 INR 1.7 11/15/17 06:52 APTT 26 SECONDS (21-34) 11/11/17 08:28
--- NOTE | 2017-11-15 23:49 | PN ---
DATE: 11/15/2017 SUBJECTIVE: The patient was seen today. She had a sigmoidoscopy done, which showed significant amount of pseudomembranous colitis and the pictures are in the chart. Dr. Kenyon call me and we both decided to take away meropenem. PHYSICAL EXAMINATION: VITAL SIGNS: The patient came back and T max is 98.1, pulse 59, blood pressure is 145/77, respirations are 20 and saturation 94. GENERAL: She is awake, alert. She denies any complaints. HEENT: Head is atraumatic and normocephalic. Pupils are reacting to light. NECK: Supple. LUNGS: Clear. HEART: S1, S2 is regular. ABDOMEN: Soft. Bowel sounds are present. EXTREMITIES: Have no edema, clubbing or cyanosis. LABORATORY DATA: Labs are noted. White count was 6.6 today, hemoglobin 11.4, hematocrit 32.7, platelet count is 325 and her potassium is still low at 3.3, creatinine is 0.4 and glucose is 93. ASSESSMENT AND PLAN: We had initially put her on treatment for the Clostridium difficile colitis, but when she started to have a lot of bands and still persisted fevers, I added meropenem, but it seems that she does have pseudomembranous colitis, which is pretty extensive as shown in the pictures. Suggest to keep off all the antibiotics and to put her on lactobacillus. Right now we will continue with the vancomycin 250 q.i.d. and also Flagyl 500 p.o. every 8 hours, and we will follow. The patient will probably need three weeks of vancomycin as she has severe Clostridium difficile colitis and she should be followed up as outpatient if she continues to have diarrhea and she should stay away from all other antibiotics, which is a must. She has been going to lately receive the antibiotics and that is a problem. Grupo Sullivan MD
[2017-11-16] MEDS: Potassium Ch 20mEq in D5W 1,000 ML IV SCH ×3 (05:40→18:40)
--- NOTE | 2017-11-16 07:12 | CP.PCM.PN ---
<Jaime Mercer - Last Filed: 11/16/17 18:55> Subjective - Date & Time of Evaluation Date of Evaluation: 11/16/17 Time of Evaluation: 07:11 - Subjective Subjective: PGY-[address] Hamlin service Patient is seen and examined at bedside. Patient states she had one episode of watery, nonbloody diarrhea. Patient says she has pain when eating clear liquid diet. Patient says she has no other choice but to eat the food she is given here. Patient denies fevers, chills, chest pain, SOB, abdominal pain , nausea, vomiting, or burning at urination. Objective - Vital Signs/Intake and Output Vital Signs (last 24 hours): Temp Pulse Resp BP Pulse Ox 98.4 F 67 20 117/60 97 11/15/17 23:37 11/15/17 23:37 11/15/17 23:37 11/15/17 23:37 11/15/17 23:37 Intake and Output: 11/16/17 11/16/17 06:59 18:59 Intake Total 840 Output Total 5 Balance 835 - Medications Medications: Current Medications Acetaminophen (Tylenol 325mg Tab) 650 mg PO Q6 PRN PRN Reason: Fever >100.4 F Last Admin: 11/12/17 16:00 Dose: 650 mg Famotidine (Pepcid) 20 mg PO DAILY [facility] Last Admin: 11/15/17 10:14 Dose: 20 mg Potassium Chloride/Dextrose (Potassium Chl 20 Meq In D5w) 1,000 mls @ 75 mls/ hr IV .[id number] [facility] Last Admin: 11/15/17 16:55 Dose: Not Given Lactobacillus Acidophilus (Bacid Acidophilus) 1 cap PO BID [facility] Last Admin: 11/15/17 17:58 Dose: 1 cap Metronidazole (Flagyl) 500 mg PO Q8H [facility] Last Admin: 11/16/17 02:09 Dose: 500 mg Ondansetron HCl (Zofran Inj) 4 mg IVP Q6H PRN PRN Reason: Nausea/Vomiting Last Admin: 11/15/17 19:21 Dose: 4 mg Vancomycin HCl (Vancocin (Oral Or Rectal Use)) 250 mg PO QID [facility] PRN Reason: Protocol Last Admin: 11/15/17 21:42 Dose: 250 mg - Labs Labs: 11/15/17 06:52 11/15/17 06:52 PT 19.0 SECONDS (9.7-12.2) H 11/15/17 06:52 INR 1.7 11/15/17 06:52 APTT 26 SECONDS (21-34) 11/11/17 08:28 - Constitutional Appears: Well, Non-toxic, No Acute Distress - Head Exam Head Exam: ATRAUMATIC, NORMAL INSPECTION - Eye Exam Eye Exam: EOMI, Normal appearance - ENT Exam ENT Exam: Mucous Membranes Moist, Normal Exam - Neck Exam Neck Exam: Full ROM, Normal Inspection - Respiratory Exam Respiratory Exam: Clear to Ausculation Bilateral, NORMAL BREATHING PATTERN. absent: Rales, Rhonchi, Wheezes - Cardiovascular Exam Cardiovascular Exam: REGULAR RHYTHM, +S1, +S2. absent: Gallop, Rubs, Murmur - GI/Abdominal Exam GI & Abdominal Exam: Soft, Tenderness, Normal Bowel Sounds. absent: Distended, Firm, Guarding, Rebound Additional comments: mild tenderness on lower right and left quadrant on deep palpation - Extremities Exam Extremities Exam: Full ROM, Normal Inspection. absent: Pedal Edema, Tenderness - Back Exam Back Exam: NORMAL INSPECTION. absent: rash noted, tenderness - Neurological Exam Neurological Exam: Alert, Awake, CN II-XII Intact, Oriented x3 - Psychiatric Exam Psychiatric exam: Normal Affect, Normal Mood - Skin Skin Exam: Dry, Intact, Normal Color Assessment and Plan - Assessment and Plan (Free Text) Plan: Colitis/Abdominal pain -11/16: Temp 98.4, stable, WBC: 5.2 from 6.6, downtrending -11/11 CT abd/pelvis showed findings suggestive of diffuse large bowel thickening more prominent on the right side consistent with pancolitis. Mild small bowel wall thickening also noted. No evidence of high grade bowel obstruction. No evidence of cholecystitis, pancreatitis or appendicitis (see full report) - Colonoscopy performed 11/15/17. Report revealed pseudomembranous colitis with diverticulosis in the sigmoid colon. Recommended advancing diet as tolerated. - Stool occult collected on 11/11 positive - stool leukocytes collected on 11/12 positive, stool ova and parasites negative (11/12/17) - C diff collected on 11/11 was negative, repeat C diff collected on 11/13 is also negative, 11/14 negative, 11/15 negative - Blood cultures from 11/11/17 no growth after 5 days. - Stool cultures from 11/11/17 no salmonella, shigella or campylobacter - Urine culture 11/11/17 no growth - IV Antibiotics: Vancomycin 250mg PO QID (11/11/17), continue Flagyl 500mg Q8H (11/11/17), continue -IV fluid hydration D5W with Kcl @ 75cc/hr - Bacid 1 tab PO BID -Zofran 4mg Q6H prn nausea -Tylenol 650mg PO Q6H prn fever -Diet was advanced from clear liquids to full liquid diet. -GI on consult, Dr Hicks: Continue abx, consider longer taper. Continue to F/U Recs -ID on consult, Dr Sullivan - F/U recs Anemia - 11/16 H.6 from 10.5 on 11/14 (trending up) -Workup suggesting Iron deficiency etiology -Iron 21, TIBC 139, % saturation 15, stool occult positive -Consider starting PO Iron after infection has resolved Hypokalemia -11/16 Potassium 3.6, Mag 2.0 -11/15Potassium 3.3 today, Magnesium 2.0 -IV fluid hydration D5W with Kcl @ 75cc/hr -continue to monitor Right CVA tenderness, resolved no urinary symptoms, resolved UA 11/11/17 1+ protein, 1+ blood, WBC 9, trace leuk esterase UA 11/11/17 1+ blood, 1 WBC, neg leuk esterase Urine culture 11/11/17 no growth Hypertension -11/16: BP 119/73 -Medication Norvasc 5mg PO daily held in light of low BPs -Will monitor blood pressures and restart Norvasc if needed History of GERD - continue Pepcid 20mg PO daily History of Depression -Takes Lexapro 20mg PO "as needed" at home -Will continue to monitor GI/DVT ppx: -Pepcid 20mg PO daily -SCDs (no chemical DVT ppx, stool occult positive) Predisposition: we will follow up with out of school hours care worker in terms of being D/C with [facility] antibiotics. Plan was discussed with Dr. Yakelin Mercer, PGY-1 <Archana Hamlin - Last Filed: 11/24/17 20:57> Objective - Vital Signs/Intake and Output Vital Signs (last 24 hours): Temp Pulse Resp BP Pulse Ox 97.9 F 65 20 102/62 96 11/18/17 07:32 11/18/17 07:32 11/18/17 07:32 11/18/17 07:32 11/18/17 07:32 - Labs Labs: 11/18/17 07:25 11/18/17 07:25 PT 19.0 SECONDS (9.7-12.2) H 11/15/17 06:52 INR 1.7 11/15/17 06:52 APTT 26 SECONDS (21-34) 11/11/17 08:28 Attending/Attestation - Attestation I have personally seen and examined this patient.: Yes I have fully participated in the care of the patient.: Yes I have reviewed all pertinent clinical information, including history, physical exam and plan: Yes Notes (Text): S/P colonoscopy shows pseudomembranous colitis Improve diet as tolerated.continue antibiotics .follow ID d/w residents I agree with the assessment and the plan
[2017-11-16 07:30] LABS: BASO % 0.6 % (0.0-2.0); EOS # 0.1 K/uL (0.0-0.7); EOS % 1.6 % (0.0-4.0); HEMOGLOBIN 11.6 g/dL (11.0-16.0); LYMPH # 0.9 K/uL (1.0-4.3); LYMPH % 16.5 % (20.0-40.0); MEAN CELL VOLUME 89.2 fL (81.0-99.0); MEAN CORPUSCULAR HEMOGLOBIN 31.1 pg (27.0-31.0); MEAN CORPUSCULAR HGB CONC 34.9 g/dL (33.0-37.0); MEAN PLATELET VOLUME 8.7 fL (7.2-11.7); MONO # 0.6 K/uL (0.0-0.8); MONO % 10.6 % (0.0-10.0); NEUT # 3.7 K/uL (1.8-7.0); NEUT % 70.7 % (50.0-75.0); NRBC % 0.1 % (0.0-2.0); RBC 3.73 Mil/uL (3.80-5.20); RED CELL DISTRIBUTION WIDTH 13.4 % (11.5-14.5); WHITE BLOOD COUNT 5.2 K/uL (4.8-10.8)
[2017-11-16 07:43] LABS: ALB/GLOB RATIO 1.1 (1.0-2.1); ALBUMIN 2.7 g/dL (3.5-5.0); ALT/SGPT 46 U/L (9-52); AST/SGOT 65 U/L (14-36); BLOOD UREA NITROGEN < 2 mg/dL (7-17); CALCIUM 8.4 mg/dl (8.6-10.4); GFR AFRICAN-AMERICAN > 60; GFR NON-AFRICAN AMERICAN > 60
--- NOTE | 2017-11-16 08:12 | CP.PCM.PN ---
Subjective - Date & Time of Evaluation Date of Evaluation: 11/16/17 Time of Evaluation: 07:30 - Subjective Subjective: f/u colitis Pt seen with [employer] Contractor. Reports feeling better. Asking for food Denies Rb, melena, CP, SOB, BURK, cough, hematuria, hemoptysis Objective - Vital Signs/Intake and Output Vital Signs (last 24 hours): Temp Pulse Resp BP Pulse Ox 98.4 F 67 20 117/60 97 11/15/17 23:37 11/15/17 23:37 11/15/17 23:37 11/15/17 23:37 11/15/17 23:37 Intake and Output: 11/16/17 11/16/17 06:59 18:59 Intake Total 840 Output Total 5 Balance 835 - Medications Medications: Current Medications Acetaminophen (Tylenol 325mg Tab) 650 mg PO Q6 PRN PRN Reason: Fever >100.4 F Last Admin: 11/12/17 16:00 Dose: 650 mg Famotidine (Pepcid) 20 mg PO DAILY [facility] Last Admin: 11/15/17 10:14 Dose: 20 mg Potassium Chloride/Dextrose (Potassium Chl 20 Meq In D5w) 1,000 mls @ 75 mls/ hr IV .[id number] [facility] Last Admin: 11/15/17 16:55 Dose: Not Given Lactobacillus Acidophilus (Bacid Acidophilus) 1 cap PO BID [facility] Last Admin: 11/15/17 17:58 Dose: 1 cap Metronidazole (Flagyl) 500 mg PO Q8H [facility] Last Admin: 11/16/17 02:09 Dose: 500 mg Ondansetron HCl (Zofran Inj) 4 mg IVP Q6H PRN PRN Reason: Nausea/Vomiting Last Admin: 11/15/17 19:21 Dose: 4 mg Vancomycin HCl (Vancocin (Oral Or Rectal Use)) 250 mg PO QID [facility] PRN Reason: Protocol Last Admin: 11/15/17 21:42 Dose: 250 mg - Labs Labs: 11/16/17 06:44 11/16/17 06:44 PT 19.0 SECONDS (9.7-12.2) H 11/15/17 06:52 INR 1.7 11/15/17 06:52 APTT 26 SECONDS (21-34) 11/11/17 08:28 - Constitutional Appears: Non-toxic - Respiratory Exam Respiratory Exam: Clear to Ausculation Bilateral - Cardiovascular Exam Cardiovascular Exam: RRR - GI/Abdominal Exam GI & Abdominal Exam: Soft, Normal Bowel Sounds. absent: Guarding - Extremities Exam Extremities Exam: absent: Pedal Edema - Neurological Exam Neurological Exam: Alert, Oriented x3 Assessment and Plan (1) Abdominal pain Assessment & Plan: c diff Status: Acute (2) C. difficile colitis Assessment & Plan: Continue flagyl and vanco. Consider longer taper Status: Acute (3) Diarrhea Status: Acute
[2017-11-16] MEDS: Lactobacillus Acidophilus 500 MU Cap PO SCH ×2 (09:52→18:38)
[2017-11-16] MEDS: Vancomycin 125 MG/5 ML SOLN (ORAL/RECTAL) PO SCH ×4 (09:52→22:19)
--- NOTE | 2017-11-16 20:26 | CP.PCM.PN ---
Subjective - Date & Time of Evaluation Date of Evaluation: 11/16/17 Time of Evaluation: 01:00 - Subjective Subjective: dictated Objective - Vital Signs/Intake and Output Vital Signs (last 24 hours): Temp Pulse Resp BP Pulse Ox 98.4 F 61 20 111/62 97 11/16/17 16:00 11/16/17 16:00 11/16/17 16:00 11/16/17 16:00 11/16/17 16:00 Intake and Output: 11/16/17 11/17/17 18:59 06:59 Intake Total 900 Balance 900 - Medications Medications: Current Medications Acetaminophen (Tylenol 325mg Tab) 650 mg PO Q6 PRN PRN Reason: Fever >100.4 F Last Admin: 11/12/17 16:00 Dose: 650 mg Famotidine (Pepcid) 20 mg PO DAILY [facility] Last Admin: 11/16/17 09:52 Dose: 20 mg Potassium Chloride/Dextrose (Potassium Chl 20 Meq In D5w) 1,000 mls @ 75 mls/ hr IV .[id number] [facility] Last Admin: 11/16/17 18:40 Dose: Not Given Lactobacillus Acidophilus (Bacid Acidophilus) 1 cap PO BID [facility] Last Admin: 11/16/17 18:38 Dose: 1 cap Metronidazole (Flagyl) 500 mg PO Q8H [facility] Last Admin: 11/16/17 18:40 Dose: 500 mg Ondansetron HCl (Zofran Inj) 4 mg IVP Q6H PRN PRN Reason: Nausea/Vomiting Last Admin: 11/16/17 18:42 Dose: 4 mg Vancomycin HCl (Vancocin (Oral Or Rectal Use)) 250 mg PO QID [facility] PRN Reason: Protocol Last Admin: 11/16/17 18:41 Dose: 250 mg - Labs Labs: 11/16/17 06:44 11/16/17 06:44 PT 19.0 SECONDS (9.7-12.2) H 11/15/17 06:52 INR 1.7 11/15/17 06:52 APTT 26 SECONDS (21-34) 11/11/17 08:28
--- NOTE | 2017-11-17 02:18 | PN ---
DATE: 11/16/2017 SUBJECTIVE: The patient was seen today around 1, and the patient states she was feeling weak. She had five BMs today. She is off the meropenem, but continues to remain symptomatic. Her flexible sigmoidoscopy yesterday showed pseudomembranous colitis, and she is in isolation and was seen by GI also, and she denied any other complaints, but was feeling weak. No nausea. No vomiting reported. PHYSICAL EXAMINATION: VITAL SIGNS: T-max is 98.4, pulse rate is 61, blood pressure 111/62, respirations are 20. HEENT: Head is atraumatic and normocephalic. NECK: Supple. LUNGS: Clear. HEART: S1 and S2 are regular. ABDOMEN: Soft. Nontender. No guarding. No rigidity present. EXTREMITIES: Have no edema. Her Flagyl has been discontinued, and she is on vancomycin p.o. 250 mg p.o. four times daily at this time and lactobacillus. We will continue with that and repeat labs tomorrow, and hopefully, her diarrhea will get better. I want to make sure she is not on any Colace, and I think we should also stop Pepcid. Grupo Sullivan MD
--- NOTE | 2017-11-17 05:31 | CP.PCM.PN ---
<Jaime Mercer - Last Filed: 11/17/17 19:03> Subjective - Date & Time of Evaluation Date of Evaluation: 11/17/17 Time of Evaluation: 05:31 - Subjective Subjective: PGY-[address] Hamlin service Patient is seen and examined at bedside. Patient says she is feeling weak, and doesnt want to eat liquid diet anymore. Patient says she gets nauseous when seeing the clear diet. Patient feels her stomach rumbling. Patient says she did not have a diarrhea yesterday. Patient denies any fever, chills, chest pain, SOB , vomiting, diarrhea or constipation. Objective - Vital Signs/Intake and Output Vital Signs (last 24 hours): Temp Pulse Resp BP Pulse Ox 98.2 F 62 20 109/65 97 11/17/17 00:32 11/17/17 00:32 11/17/17 00:32 11/17/17 00:32 11/17/17 00:32 Intake and Output: 11/16/17 11/17/17 18:59 06:59 Intake Total 900 1000 Balance 900 1000 - Medications Medications: Current Medications Acetaminophen (Tylenol 325mg Tab) 650 mg PO Q6 PRN PRN Reason: Fever >100.4 F Last Admin: 11/12/17 16:00 Dose: 650 mg Famotidine (Pepcid) 20 mg PO DAILY [facility] Last Admin: 11/16/17 09:52 Dose: 20 mg Potassium Chloride/Dextrose (Potassium Chl 20 Meq In D5w) 1,000 mls @ 75 mls/ hr IV .[id number] [facility] Last Admin: 11/16/17 18:40 Dose: Not Given Lactobacillus Acidophilus (Bacid Acidophilus) 1 cap PO BID [facility] Last Admin: 11/16/17 18:38 Dose: 1 cap Metronidazole (Flagyl) 500 mg PO Q8H [facility] Last Admin: 11/17/17 02:06 Dose: 500 mg Ondansetron HCl (Zofran Inj) 4 mg IVP Q6H PRN PRN Reason: Nausea/Vomiting Last Admin: 11/16/17 18:42 Dose: 4 mg Vancomycin HCl (Vancocin (Oral Or Rectal Use)) 250 mg PO QID [facility] PRN Reason: Protocol Last Admin: 11/16/17 22:19 Dose: 250 mg - Labs Labs: 11/16/17 06:44 11/16/17 06:44 PT 19.0 SECONDS (9.7-12.2) H 11/15/17 06:52 INR 1.7 11/15/17 06:52 APTT 26 SECONDS (21-34) 11/11/17 08:28 - Constitutional Appears: Non-toxic, No Acute Distress - Head Exam Head Exam: ATRAUMATIC, NORMAL INSPECTION, NORMOCEPHALIC - Eye Exam Eye Exam: EOMI, Normal appearance - ENT Exam ENT Exam: Mucous Membranes Moist, Normal Exam - Neck Exam Neck Exam: Full ROM, Normal Inspection - Respiratory Exam Respiratory Exam: Clear to Ausculation Bilateral, NORMAL BREATHING PATTERN. absent: Rales, Wheezes - Cardiovascular Exam Cardiovascular Exam: REGULAR RHYTHM, +S1, +S2. absent: Clicks, Gallop, Murmur - GI/Abdominal Exam GI & Abdominal Exam: Soft, Tenderness, Normal Bowel Sounds Additional comments: Mild diffuse tenderness on four quadrants - Extremities Exam Extremities Exam: Full ROM, Normal Inspection. absent: Pedal Edema, Tenderness - Back Exam Back Exam: NORMAL INSPECTION - Neurological Exam Neurological Exam: Alert, Awake, Oriented x3 - Psychiatric Exam Psychiatric exam: Normal Affect, Normal Mood - Skin Skin Exam: Dry, Intact Assessment and Plan - Assessment and Plan (Free Text) Plan: Colitis/Abdominal pain -11/17: vitals stable - IV Antibiotics: Vancomycin 250mg PO QID (11/11/17), continue Flagyl 500mg Q8H (11/11/17), continue -IV fluid hydration D5W with Kcl @ 75cc/hr -Bacid 1 tab PO BID -Zofran 4mg Q6H prn nausea -Tylenol 650mg PO Q6H prn fever -Diet advanced from full diet to heart healthy diet. Monitor if tolerating diet. possible D/C tomorrow with oral antibiotics -GI on consult, Dr Hicks: Continue abx, consider longer taper. Continue to F/U Recs -ID on consult, Dr Sullivan -Will be D/C tomorrow with oral Vanco if tolerating diet -11/11 CT abd/pelvis showed findings suggestive of diffuse large bowel thickening more prominent on the right side consistent with pancolitis. Mild small bowel wall thickening also noted. No evidence of high grade bowel obstruction. No evidence of cholecystitis, pancreatitis or appendicitis (see full report) - Colonoscopy performed 11/15/17. Report revealed pseudomembranous colitis with diverticulosis in the sigmoid colon. Recommended advancing diet as tolerated. - Stool occult collected on 11/11 positive - stool leukocytes collected on 11/12 positive, stool ova and parasites negative (11/12/17) - C diff collected on 11/11 was negative, repeat C diff collected on 11/13 is also negative, 11/14 negative, 11/15 negative - Blood cultures from 11/11/17 no growth after 5 days. - Stool cultures from 11/11/17 no salmonella, shigella or campylobacter - Urine culture 11/11/17 no growth Anemia - 11/16 H.6 -Workup suggesting Iron deficiency etiology -Iron 21, TIBC 139, % saturation 15, stool occult positive -Consider starting PO Iron after infection has resolved Hypokalemia -11/16 Potassium 3.8 -11/15Potassium 3.3 today, Magnesium 2.0 -IV fluid hydration D5W with Kcl @ 75cc/hr -continue to monitor Hypertension -11/16: BP 119/73 -Medication Norvasc 5mg PO daily held in light of low BPs -Will monitor blood pressures and restart Norvasc if needed History of GERD - continue Pepcid 20mg PO daily History of Depression -Takes Lexapro 20mg PO "as needed" at home -Will continue to monitor GI/DVT ppx: -Pepcid 20mg PO daily -SCDs (no chemical DVT ppx, stool occult positive) Plan was discussed with Dr. Yakelin Mercer, PGY-1 <Archana Hamlin - Last Filed: 11/24/17 21:36> Objective - Vital Signs/Intake and Output Vital Signs (last 24 hours): Temp Pulse Resp BP Pulse Ox 97.9 F 65 20 102/62 96 11/18/17 07:32 11/18/17 07:32 11/18/17 07:32 11/18/17 07:32 11/18/17 07:32 - Labs Labs: 11/18/17 07:25 11/18/17 07:25 PT 19.0 SECONDS (9.7-12.2) H 11/15/17 06:52 INR 1.7 11/15/17 06:52 APTT 26 SECONDS (21-34) 11/11/17 08:28 Attending/Attestation - Attestation I have personally seen and examined this patient.: Yes I have fully participated in the care of the patient.: Yes I have reviewed all pertinent clinical information, including history, physical exam and plan: Yes Notes (Text): Patient feels better,Improve diet as tolerated. Discharge on oral antibiotics as recommended by Dr Sullivan Possible discharge tomorrow I agree with the resident \\'s documentation
[2017-11-17 07:50] VITALS: O2SAT 96
[2017-11-17 08:06] LABS: BASO % 0.6 % (0.0-2.0); EOS # 0.1 K/uL (0.0-0.7); EOS % 1.6 % (0.0-4.0); HEMOGLOBIN 11.6 g/dL (11.0-16.0); LYMPH # 0.8 K/uL (1.0-4.3); LYMPH % 13.4 % (20.0-40.0); MEAN CORPUSCULAR HGB CONC 34.4 g/dL (33.0-37.0); MEAN PLATELET VOLUME 8.2 fL (7.2-11.7); MONO # 0.5 K/uL (0.0-0.8); MONO % 9.2 % (0.0-10.0); NEUT # 4.4 K/uL (1.8-7.0); NEUT % 75.2 % (50.0-75.0); RBC 3.75 Mil/uL (3.80-5.20); RED CELL DISTRIBUTION WIDTH 13.7 % (11.5-14.5); WHITE BLOOD COUNT 5.8 K/uL (4.8-10.8)
[2017-11-17 08:20] LABS: ALBUMIN 2.6 g/dL (3.5-5.0); ALT/SGPT 47 U/L (9-52); AST/SGOT 37 U/L (14-36); BLOOD UREA NITROGEN 2 mg/dL (7-17); CALCIUM 8.5 mg/dl (8.6-10.4); GFR AFRICAN-AMERICAN > 60; GFR NON-AFRICAN AMERICAN > 60
[2017-11-17] MEDS: Vancomycin 125 MG/5 ML SOLN (ORAL/RECTAL) PO SCH ×4 (09:29→21:24)
[2017-11-17] MEDS: Lactobacillus Acidophilus 500 MU Cap PO SCH ×2 (09:29→17:52)
--- NOTE | 2017-11-17 11:32 | CP.PCM.PN ---
Subjective - Date & Time of Evaluation Date of Evaluation: 11/17/17 Time of Evaluation: 11:30 - Subjective Subjective: Yellow diarrhea, a bit improved. Abdominal pain improved. No fevers/chills Objective - Vital Signs/Intake and Output Vital Signs (last 24 hours): Temp Pulse Resp BP Pulse Ox 98.8 F 64 20 123/74 96 11/17/17 07:49 11/17/17 07:49 11/17/17 07:49 11/17/17 07:49 11/17/17 07:49 Intake and Output: 11/17/17 11/17/17 06:59 18:59 Intake Total 1000 Balance 1000 - Medications Medications: Current Medications Acetaminophen (Tylenol 325mg Tab) 650 mg PO Q6 PRN PRN Reason: Fever >100.4 F Last Admin: 11/12/17 16:00 Dose: 650 mg Famotidine (Pepcid) 20 mg PO DAILY [facility] Last Admin: 11/17/17 09:29 Dose: 20 mg Potassium Chloride/Dextrose (Potassium Chl 20 Meq In D5w) 1,000 mls @ 75 mls/ hr IV .[id number] [facility] Last Admin: 11/16/17 18:40 Dose: Not Given Lactobacillus Acidophilus (Bacid Acidophilus) 1 cap PO BID [facility] Last Admin: 11/17/17 09:29 Dose: 1 cap Metronidazole (Flagyl) 500 mg PO Q8H [facility] Last Admin: 11/17/17 09:29 Dose: 500 mg Ondansetron HCl (Zofran Inj) 4 mg IVP Q6H PRN PRN Reason: Nausea/Vomiting Last Admin: 11/16/17 18:42 Dose: 4 mg Vancomycin HCl (Vancocin (Oral Or Rectal Use)) 250 mg PO QID [facility] PRN Reason: Protocol Last Admin: 11/17/17 09:29 Dose: 250 mg - Labs Labs: 11/17/17 07:45 11/17/17 07:45 PT 19.0 SECONDS (9.7-12.2) H 11/15/17 06:52 INR 1.7 11/15/17 06:52 APTT 26 SECONDS (21-34) 11/11/17 08:28 - Constitutional Appears: Well - Head Exam Head Exam: NORMOCEPHALIC - Eye Exam Eye Exam: absent: Scleral icterus - Respiratory Exam Respiratory Exam: NORMAL BREATHING PATTERN - GI/Abdominal Exam GI & Abdominal Exam: Soft. absent: Distended, Tenderness Assessment and Plan (1) Colitis Assessment & Plan: CDiff colitis Pathology non-diagnostic Slow clinical improvement on Vanco and Flagyl. Continue. Advance diet Status: Acute (2) Hypertension Assessment & Plan: managed by primary medical team Status: Chronic
[2017-11-17] MEDS: Potassium Ch 20mEq in D5W 1,000 ML IV SCH ×2 (11:39→21:11)
--- NOTE | 2017-11-17 18:48 | CP.PCM.PN ---
Subjective - Date & Time of Evaluation Date of Evaluation: 11/17/17 Time of Evaluation: 01:40 - Subjective Subjective: dictated Objective - Vital Signs/Intake and Output Vital Signs (last 24 hours): Temp Pulse Resp BP Pulse Ox 99 F 71 18 119/74 96 11/17/17 16:00 11/17/17 16:00 11/17/17 16:00 11/17/17 16:00 11/17/17 16:00 Intake and Output: 11/17/17 11/17/17 06:59 18:59 Intake Total 1000 600 Balance 1000 600 - Medications Medications: Current Medications Acetaminophen (Tylenol 325mg Tab) 650 mg PO Q6 PRN PRN Reason: Fever >100.4 F Last Admin: 11/12/17 16:00 Dose: 650 mg Famotidine (Pepcid) 20 mg PO DAILY [facility] Last Admin: 11/17/17 09:29 Dose: 20 mg Potassium Chloride/Dextrose (Potassium Chl 20 Meq In D5w) 1,000 mls @ 75 mls/ hr IV .[id number] [facility] Last Admin: 11/17/17 11:39 Dose: 75 mls/hr Lactobacillus Acidophilus (Bacid Acidophilus) 1 cap PO BID [facility] Last Admin: 11/17/17 17:52 Dose: 1 cap Metronidazole (Flagyl) 500 mg PO Q8H [facility] Last Admin: 11/17/17 17:52 Dose: 500 mg Ondansetron HCl (Zofran Inj) 4 mg IVP Q6H PRN PRN Reason: Nausea/Vomiting Last Admin: 11/16/17 18:42 Dose: 4 mg Vancomycin HCl (Vancocin (Oral Or Rectal Use)) 250 mg PO QID [facility] PRN Reason: Protocol Last Admin: 11/17/17 17:52 Dose: 250 mg - Labs Labs: 11/17/17 07:45 11/17/17 07:45 PT 19.0 SECONDS (9.7-12.2) H 11/15/17 06:52 INR 1.7 11/15/17 06:52 APTT 26 SECONDS (21-34) 11/11/17 08:28
[2017-11-17 23:47] VITALS: RESP 20
--- NOTE | 2017-11-18 00:21 | PN ---
DATE: 11/18/2017 SUBJECTIVE: The patient is afebrile. She is feeling better, but she still has diarrhea. Denies abdominal pain. She says she is a little bit better but not too much. No vomiting reported. PHYSICAL EXAMINATION: VITAL SIGNS: T-max is 99, pulse 71, blood pressure 119/74, respirations are 18. HEENT: Atraumatic, normocephalic. NECK: Supple. LUNGS: Clear. HEART: S1, S2 are regular. ABDOMEN: Soft. Nontender. No guarding. No rigidity present. EXTREMITIES: No edema. She did not have any more fevers. White count is 5.8, hemoglobin 11.6, hematocrit 33.8, platelet count is 335. Her potassium is 3.8, creatinine 0.5, AST is 37, proteins are 5.3. She was found to have pancolitis and I would suggest to send her home with acidophilus b.i.d. for a few months and also to send with vancomycin 250 mg p.o. four times a day for three weeks and to discontinue any A2 inhibitors if she is on, and the patient should avoid any kind of antibiotics for any reason unless it is life threatening emergency. We will follow. Grupo Sullivan MD
[2017-11-18] MEDS: Potassium Ch 20mEq in D5W 1,000 ML IV SCH ×2 (01:59→11:00)
[2017-11-18 07:37] VITALS: BP 102/62; PULSE 65; TEMP 97.9
[2017-11-18 07:42] LABS: BASO % 0.5 % (0.0-2.0); EOS # 0.1 K/uL (0.0-0.7); LYMPH % 14.3 % (20.0-40.0); MEAN CELL VOLUME 90.1 fL (81.0-99.0); MEAN CORPUSCULAR HEMOGLOBIN 30.8 pg (27.0-31.0); MEAN CORPUSCULAR HGB CONC 34.1 g/dL (33.0-37.0); MONO # 0.6 K/uL (0.0-0.8); MONO % 8.6 % (0.0-10.0); NEUT % 74.6 % (50.0-75.0); RBC 3.9 Mil/uL (3.80-5.20); RED CELL DISTRIBUTION WIDTH 13.7 % (11.5-14.5); WHITE BLOOD COUNT 6.7 K/uL (4.8-10.8)
[2017-11-18 08:23] LABS: ALB/GLOB RATIO 0.9 (1.0-2.1); ALBUMIN 2.6 g/dL (3.5-5.0); ALT/SGPT 39 U/L (9-52); AST/SGOT 33 U/L (14-36); BLOOD UREA NITROGEN 7 mg/dL (7-17); CALCIUM 8.5 mg/dl (8.6-10.4); GFR AFRICAN-AMERICAN > 60; GFR NON-AFRICAN AMERICAN > 60
--- NOTE | 2017-11-18 10:02 | CP.PCM.PN ---
Subjective - Date & Time of Evaluation Date of Evaluation: 11/18/17 Time of Evaluation: 09:30 - Subjective Subjective: f/u colitis denies Rb, fever, chills, Cp, SOB, BURK, cough, hemoptysis, hematuria Objective - Vital Signs/Intake and Output Vital Signs (last 24 hours): Temp Pulse Resp BP Pulse Ox 97.9 F 65 20 102/62 96 11/18/17 07:32 11/18/17 07:32 11/18/17 07:32 11/18/17 07:32 11/18/17 07:32 Intake and Output: 11/18/17 11/18/17 06:59 18:59 Intake Total 600 Balance 600 - Medications Medications: Current Medications Acetaminophen (Tylenol 325mg Tab) 650 mg PO Q6 PRN PRN Reason: Fever >100.4 F Last Admin: 11/12/17 16:00 Dose: 650 mg Potassium Chloride/Dextrose (Potassium Chl 20 Meq In D5w) 1,000 mls @ 75 mls/ hr IV .[id number] [facility] Last Admin: 11/18/17 01:59 Dose: 75 mls/hr Lactobacillus Acidophilus (Bacid Acidophilus) 1 cap PO BID [facility] Last Admin: 11/17/17 17:52 Dose: 1 cap Metronidazole (Flagyl) 500 mg PO Q8H [facility] Last Admin: 11/18/17 01:59 Dose: 500 mg Ondansetron HCl (Zofran Inj) 4 mg IVP Q6H PRN PRN Reason: Nausea/Vomiting Last Admin: 11/16/17 18:42 Dose: 4 mg Vancomycin HCl (Vancocin (Oral Or Rectal Use)) 250 mg PO QID [facility] PRN Reason: Protocol Last Admin: 11/17/17 21:24 Dose: 250 mg - Labs Labs: 11/18/17 07:25 11/18/17 07:25 PT 19.0 SECONDS (9.7-12.2) H 11/15/17 06:52 INR 1.7 11/15/17 06:52 APTT 26 SECONDS (21-34) 11/11/17 08:28 - Constitutional Appears: Well - Respiratory Exam Respiratory Exam: Clear to Ausculation Bilateral - Cardiovascular Exam Cardiovascular Exam: RRR - GI/Abdominal Exam GI & Abdominal Exam: Soft, Normal Bowel Sounds. absent: Guarding, Tenderness, Mass, Rebound - Neurological Exam Neurological Exam: Alert, Oriented x3 Assessment and Plan (1) Abdominal pain Assessment & Plan: c diff colitis Status: Acute (2) C. difficile colitis Assessment & Plan: Improving. Continiue po vanco/ flagyl for full course. Regular diet. Status: Acute (3) Diarrhea Assessment & Plan: c diff Status: Acute
[2017-11-18] MEDS: Vancomycin 125 MG/5 ML SOLN (ORAL/RECTAL) PO SCH ×2 (10:16→14:33)
[2017-11-18] MEDS: Lactobacillus Acidophilus 500 MU Cap PO SCH (10:30)
--- NOTE | 2017-11-18 17:13 | CARD ---
APPROVED REPORT Date of service: 11/13/2017 EKG Measurement Heart [id number] <Conclusion> Normal sinus rhythm Low voltage QRS Borderline ECG
--- NOTE | 2017-11-18 18:23 | CP.PCM.DIS ---
<Jaime Mercer - Last Filed: 11/18/17 18:20> Provider - Provider Date of Admission: 11/11/17 10:30 Attending physician: Archana Hamlin MD Time Spent in preparation of Discharge (in minutes): 50 Diagnosis - Discharge Diagnosis (1) Abdominal pain Status: Acute (2) C. difficile colitis Status: Acute (3) Colitis Status: Acute (4) Diarrhea Status: Acute (5) Prophylactic measure Status: Acute (6) Hypertension Status: Chronic Hospital Course - Lab Results Lab Results: Micro Results 11/15/17 Unknown Stool Stool Culture - Final NO SALMONELLA, SHIGELLA OR CAMPYLOBACTER ISOLATED. 11/11/17 08:30 Blood Blood Culture - Final NO GROWTH AFTER 5 DAYS 11/11/17 08:30 Blood Gram Stain - Final TEST NOT PERFORMED 11/11/17 08:00 Blood Blood Culture - Final NO GROWTH AFTER 5 DAYS 11/11/17 08:00 Blood Gram Stain - Final TEST NOT PERFORMED 11/15/17 Unknown Stool Ova and Parasite Concentrate Exam - Final 11/11/17 21:36 Urine Urine Culture - Final No Growth (<1,000 CFU/ML) 11/11/17 21:30 Stool Stool Culture - Final NO SALMONELLA, SHIGELLA OR CAMPYLOBACTER ISOLATED. 11/12/17 07:24 Rectum Ova and Parasite Concentrate Exam - Final Most Recent Lab Values WBC 6.7 K/uL (4.8-10.8) 11/18/17 07:25 RBC 3.90 Mil/uL (3.80-5.20) 11/18/17 07:25 Hgb 12.0 g/dL (11.0-16.0) 11/18/17 07:25 Hct 35.2 % (34.0-47.0) 11/18/17 07:25 MCV 90.1 fL (81.0-99.0) 11/18/17 07:25 MCH 30.8 pg (27.0-31.0) 11/18/17 07:25 MCHC 34.1 g/dL (33.0-37.0) 11/18/17 07:25 RDW 13.7 % (11.5-14.5) 11/18/17 07:25 Plt Count 346 K/uL (130-400) 11/18/17 07:25 MPV 8.0 fL (7.2-11.7) 11/18/17 07:25 Neut % (Auto) 74.6 % (50.0-75.0) 11/18/17 07:25 Lymph % (Auto) 14.3 % (20.0-40.0) L 11/18/17 07:25 Rooks % (Auto) 8.6 % (0.0-10.0) 11/18/17 07:25 Eos % (Auto) 2.0 % (0.0-4.0) 11/18/17 07:25 Baso % (Auto) 0.5 % (0.0-2.0) 11/18/17 07:25 Neut # (Auto) 5.0 K/uL (1.8-7.0) 11/18/17 07:25 Lymph # (Auto) 1.0 K/uL (1.0-4.3) 11/18/17 07:25 Rooks # (Auto) 0.6 K/uL (0.0-0.8) 11/18/17 07:25 Eos # (Auto) 0.1 K/uL (0.0-0.7) 11/18/17 07:25 Baso # (Auto) 0.0 K/uL (0.0-0.2) 11/18/17 07:25 Neutrophils % (Manual) 71 % (50-75) 11/13/17 07:56 Band Neutrophils % 20 % (0-2) H* 11/13/17 07:56 Lymphocytes % (Manual) 3 % (20-40) L 11/13/17 07:56 Monocytes % (Manual) 3 % (0-10) 11/13/17 07:56 Eosinophils % (Manual) 2 % (0-4) 11/13/17 07:56 Basophils % (Manual) 1 % (0-2) 11/13/17 07:56 Toxic Granulation Present 11/13/17 07:56 Platelet Estimate Normal (NORMAL) 11/13/17 07:56 Large Platelets Present 11/13/17 07:56 RBC Morphology Normal 11/12/17 08:41 Polychromasia Slight 11/11/17 08:14 Hypochromasia (manual) Slight 11/11/17 08:14 Poikilocytosis (manual Slight 11/13/17 07:56 Anisocytosis (manual) Slight 11/13/17 07:56 Ovalocytes Slight 11/13/17 07:56 Woodman Cells Slight 11/13/17 07:56 Retic Count 1.0 % (0.5-1.5) 11/13/17 07:56 Haptoglobin 322.1 mg/dL (30.0-200.0) H 11/13/17 13:54 PT 19.0 SECONDS (9.7-12.2) H 11/15/17 06:52 INR 1.7 11/15/17 06:52 APTT 26 SECONDS (21-34) 11/11/17 08:28 pO2 34 mm/Hg (30-55) 11/11/17 12:40 VBG pH 7.41 (7.32-7.43) 11/11/17 12:40 VBG pCO2 47 mmHg (40-60) 11/11/17 12:40 VBG HCO3 27.4 mmol/L 11/11/17 12:40 VBG Total CO2 31.2 mmol/L (22-28) H 11/11/17 12:40 VBG O2 Sat (Calc) 79.6 % (40-65) H 11/11/17 12:40 VBG Base Excess 4.3 mmol/L (0.0-2.0) H 11/11/17 12:40 VBG Potassium 3.8 mmol/L (3.6-5.2) 11/11/17 12:40 Sodium 138.0 mmol/l (132-148) 11/11/17 12:40 Chloride 106.0 mmol/L (98-107) 11/11/17 12:40 Glucose 121 mg/dl (65-105) H 11/11/17 12:40 Lactate 0.8 mmol/L (0.7-2.1) 11/11/17 12:40 FiO2 21 % 11/11/17 12:40 Sodium 136 mmol/L (132-148) 11/18/17 07:25 Potassium 4.1 mmol/L (3.6-5.2) 11/18/17 07:25 Chloride 101 mmol/L (98-107) 11/18/17 07:25 Carbon Dioxide 27 mmol/L (22-30) 11/18/17 07:25 Anion Gap 13 (10-20) 11/18/17 07:25 BUN 7 mg/dL (7-17) 11/18/17 07:25 Creatinine 0.5 mg/dL (0.7-1.2) L 11/18/17 07:25 Est GFR ( Amer) > 60 11/18/17 07:25 Est GFR (Non-Af Amer) > 60 11/18/17 07:25 POC Glucose (mg/dL) 150 mg/dL (65-110) H 11/18/17 11:13 Random Glucose 107 mg/dL (65-105) H 11/18/17 07:25 Calcium 8.5 mg/dl (8.6-10.4) L 11/18/17 07:25 Phosphorus 3.3 mg/dL (2.5-4.5) 11/18/17 07:25 Magnesium 2.2 mg/dL (1.6-2.3) 11/18/17 07:25 Iron 21 ug/dL (37-170) L 11/13/17 13:54 TIBC 139 ug/dL (250-450) L 11/13/17 13:54 % Saturation 15 (20-55) L 11/13/17 13:54 Ferritin 154.0 ng/mL 11/13/17 07:56 Total Bilirubin 0.2 mg/dL (0.2-1.3) 11/18/17 07:25 AST 33 U/L (14-36) 11/18/17 07:25 ALT 39 U/L (9-52) 11/18/17 07:25 Alkaline Phosphatase 70 U/L (38-126) 11/18/17 07:25 Troponin I < 0.0120 ng/mL (0.00-0.120) 11/11/17 08:14 Total Protein 5.4 g/dL (6.3-8.3) L 11/18/17 07:25 Albumin 2.6 g/dL (3.5-5.0) L 11/18/17 07:25 Globulin 2.8 gm/dL (2.2-3.9) 11/18/17 07:25 Albumin/Globulin Ratio 0.9 (1.0-2.1) L 11/18/17 07:25 Lipase 17 U/L (23-300) L 11/11/17 08:14 Folate 10.9 ng/mL 11/13/17 07:56 Venous Blood Potassium 3.8 mmol/L (3.6-5.2) 11/11/17 12:40 Urine Color Yellow (YELLOW) 11/11/17 21:36 Urine Clarity Clear (Clear) 11/11/17 21:36 Urine pH 6.0 (5.0-8.0) 11/11/17 21:36 Ur Specific [place] 1.010 (1.003-1.030) 11/11/17 21:36 Urine Protein Negative mg/dL (NEGATIVE) 11/11/17 21:36 Urine Glucose (UA) Normal mg/dL (Normal) 11/11/17 21:36 Urine Ketones Negative mg/dL (NEGATIVE) 11/11/17 21:36 Urine Blood 1+ (NEGATIVE) H 11/11/17 21:36 Urine Nitrate Negative (NEGATIVE) 11/11/17 21:36 Urine Bilirubin Negative (NEGATIVE) 11/11/17 21:36 Urine Urobilinogen Normal mg/dL (0.2-1.0) 11/11/17 21:36 Ur Leukocyte Esterase Neg Kiara/uL (Negative) 11/11/17 21:36 Urine WBC (Auto) 1 /hpf (0-5) 11/11/17 21:36 Urine RBC (Auto) 5 /hpf (0-3) H 11/11/17 21:36 Ur Squamous Epith Cells < 1 /hpf (0-5) 11/11/17 21:36 Urine Bacteria Rare (<OCC) 11/11/17 21:36 Stool Occult Blood Positive (NEGATIVE) H 11/12/17 07:24 Stool Leukocytes, Qual Positive (NEGATIVE) H 11/11/17 21:30 C. difficile Ag & Toxin Negative (NEGATIVE) 11/15/17 Unknown - Hospital Course Hospital Course: Patient is a 72 year old female with history of hypertension, depression and GERD who presents for evaluation of recurrent lower abdominal pain, nausea, decreased appetite, diarrhea and fevers/chills. She states she has had 5 day history of multiple episodes of loose, nonbloody, yellow, malodorous, smooth and watery stools. Her last episode of diarrhea was this morning prior to arriving at the ED. Patient was recently evaluated twice last month for similar complaints of abdominal pain and diarrhea. She was seen at [facility] on 10/18/17 where she was given a script for Cipro and Flagyl. CT of abdomen done at that time revealed changes indicative of colitis. She was admitted on 10/22/17 for worsening of abdominal pain, diarrhea, fevers. She was treated with course of Cipro, Flagyl. She was given a script for 9 days of Cipro and Flagyl on 10/25/17. She states that she has lower abdominal pain is exacerbated with food, and relieved without diet. She has been able to drink apple juice, last ate rice last night. She was seen by PMD Dr. Archer 2 days ago who prescribed her with a course of Cipro and Immodium. She last took Cipro last night with dinner. Over the past 5 days, she has continued to feel weak, dizzy and lightheaded. Admits to falling yesterday but was able to catch herself , but denies losing consciousness or hitting her head. Admits to occasional dysuria, however denies urinary frequency. She denies chest pain, shortness of breath, palpitations, cough, recent travel, sick contacts, new rashes. Patient was admitted for diarrhea Clostridium dificile colitis. Patient's Vital Temp 98.4 HR 55 BP 92/47 RR 18 Pulse ox 96% RA. PAtient's venous blood gases were the following: pH 7.41 pCO2 47 pO2 34 Lactate 0.8 . Patient's WBC 14.9 with bands of 20. Patient received NS IV 1L bolus in ED. Additional NS IV 1L bolus ordered. Patient was given NS 1L IV bolus, then NS@125cc/hr, Zofran 4mg IV PRN nausea, Flagyl 500mg IV, Vancomycin 250mg PO QID. Abdomen & pelvis CT with IV contrast was done on 11/11, findings suggestive of diffuse large bowel thickening more prominent on the right side consistent with pancolitis. Mild small bowel wall thickening also noted. No evidence of high grade bowel obstruction. No evidence of cholecystitis, pancreatitis or appendicitis. Stool cultures ordered on 11/11, which came out negative for [facility] and parasite, and salmonella, shigella or campylobacter. repeat stool sample confirms the negative results on 11/15. On 11/12, patient was started on D5 with KCl drip initiated. Infectious disease Dr Sullivan was consulted and added on 11/12 Meropenem 1g IV Q8 initiated, and continued the antibiotics mentioned above. Patient was given a clear liquid diet. Patient C diff toxin came negative and Stool occult blood was positive. GI Dr Kenyon/Dr Hicks were consulted. Colonoscopy performed 11/15/17. Report revealed pseudomembranous colitis with diverticulosis in the sigmoid colon. Patient was recommended advancing diet as tolerated. Diet was advanced from clear liquids to full liquid diet and later to regular diet. Patient continued Vanco and Flagyll for full course, as per ID and GI recs. Patient's past medical history of hypertension was managed with Norvasc 5mg PO daily. Medication held in light of low BPs and blood pressures was monitored and was considered to restart Norvasc if needed. Patient's past medical history of depression was managed with lexapro 20mg PO as needed. The following prophylaxis was given to this patient: DVT prophylaxis withj SCDS, and no chemical DVT ppx due to Stool occult positive, and GI prophylaxis with pepcid 20mg PO daily. Patient stable to be discharge home as per Medicine and Infectious diseases. Patient should follow up with PMD Dr Archer within one week, and with GI Dr Hicks within one week. Patient should continue taking the following medications home: Vancomycin 250mg oral four times daily for 3 weeks. please take every 6 hours. Lactobacillus acidophilus (Bacid) 1 tablet oral two times a day for 2 months. If patient symptoms worsen, patient was advised to come back to the Emergency Room Immediately. - Date & Time of H&P Date of H&P: 11/18/17 Time of H&P: 18:51 Discharge Exam - Head Exam Head Exam: ATRAUMATIC, NORMAL INSPECTION, NORMOCEPHALIC - Eye Exam Eye Exam: EOMI, Normal appearance, PERRL Pupil Exam: NORMAL ACCOMODATION - ENT Exam ENT Exam: Mucous Membranes Moist, Normal Exam - Respiratory Exam Respiratory Exam: Clear to PA & Lateral, NORMAL BREATHING PATTERN, UNREMARKABLE - Cardiovascular Exam Cardiovascular Exam: REGULAR RHYTHM, +S1, +S2 - GI/Abdominal Exam GI & Abdominal Exam: Normal Bowel Sounds, Tenderness - Extremities Exam Extremities exam: full ROM - Back Exam Back exam: NORMAL INSPECTION - Neurological Exam Neurological exam: Alert, CN II-XII Intact, Oriented x3 - Psychiatric Exam Psychiatric exam: Normal Affect, Normal Mood - Skin Skin Exam: Dry, Intact, Normal Color Discharge Plan - Discharge Medications Prescriptions: Lactobacillus Acidophilus [Bacid Acidophilus] 1 cap PO BID #30 cap Vancomycin [Vancocin (ORAL OR RECTAL USE)] 250 mg PO QID 21 Days #84 soln - Follow Up Plan Condition: STABLE Disposition: HOME/ ROUTINE Instructions: Diarrhea and Traveler's Diarrhea, Adult (DC), Clostridium difficile (DC), Leukocytosis (DC) Additional Instructions: Patient stable to be discharge home as per Medicine and Infectious diseases. Patient should follow up with PMD Dr Archer within one week, and with GI Dr Hicks within one week. Patient should continue taking the following medications home: Vancomycin 250mg oral four times daily for 3 weeks. please take every 6 hours. Lactobacillus acidophilus (Bacid) 1 tablet oral two times a day for 2 months. If your symptoms worsen, please come back to the Emergency Room Immediately. Paciente estable para ser dado de alejandra a domicilio segn medicina y enfermedades infecciosas. El paciente debe seguir con PMD Dr Archer dentro de deborah semana, y con GI Dr Hicks dentro de deborah semana. El paciente debe continuar tomando los siguientes medicamentos a casa: Vancomicina 250 mg por va oral cuatro veces al da mariela 3 semanas. por favor adalid cada 6 horas. Lactobacillus acidophilus (Bacid) 1 tableta oral dos veces al da mariela 2 meses. Si jourdan sntomas empeoran, por favor regrese a la [facility]cia Inmediatamente. Referrals: Alex Hicks MD [Staff Provider] - Antoine Archer MD [Staff Provider] - <Archana Hamlin - Last Filed: 11/26/17 10:43> Provider - Provider Date of Admission: 11/11/17 10:30 Attending physician: Archana Hamlin MD Hospital Course - Lab Results Lab Results: Micro Results 11/15/17 Unknown Stool Stool Culture - Final NO SALMONELLA, SHIGELLA OR CAMPYLOBACTER ISOLATED. 11/11/17 08:30 Blood Blood Culture - Final NO GROWTH AFTER 5 DAYS 11/11/17 08:30 Blood Gram Stain - Final TEST NOT PERFORMED 11/11/17 08:00 Blood Blood Culture - Final NO GROWTH AFTER 5 DAYS 11/11/17 08:00 Blood Gram Stain - Final TEST NOT PERFORMED 11/15/17 Unknown Stool Ova and Parasite Concentrate Exam - Final 11/11/17 21:36 Urine Urine Culture - Final No Growth (<1,000 CFU/ML) 11/11/17 21:30 Stool Stool Culture - Final NO SALMONELLA, SHIGELLA OR CAMPYLOBACTER ISOLATED. 11/12/17 07:24 Rectum Ova and Parasite Concentrate Exam - Final Most Recent Lab Values WBC 6.7 K/uL (4.8-10.8) 11/18/17 07:25 RBC 3.90 Mil/uL (3.80-5.20) 11/18/17 07:25 Hgb 12.0 g/dL (11.0-16.0) 11/18/17 07:25 Hct 35.2 % (34.0-47.0) 11/18/17 07:25 MCV 90.1 fL (81.0-99.0) 11/18/17 07:25 MCH 30.8 pg (27.0-31.0) 11/18/17 07:25 MCHC 34.1 g/dL (33.0-37.0) 11/18/17 07:25 RDW 13.7 % (11.5-14.5) 11/18/17 07:25 Plt Count 346 K/uL (130-400) 11/18/17 07:25 MPV 8.0 fL (7.2-11.7) 11/18/17 07:25 Neut % (Auto) 74.6 % (50.0-75.0) 11/18/17 07:25 Lymph % (Auto) 14.3 % (20.0-40.0) L 11/18/17 07:25 Rooks % (Auto) 8.6 % (0.0-10.0) 11/18/17 07:25 Eos % (Auto) 2.0 % (0.0-4.0) 11/18/17 07:25 Baso % (Auto) 0.5 % (0.0-2.0) 11/18/17 07:25 Neut # (Auto) 5.0 K/uL (1.8-7.0) 11/18/17 07:25 Lymph # (Auto) 1.0 K/uL (1.0-4.3) 11/18/17 07:25 Rooks # (Auto) 0.6 K/uL (0.0-0.8) 11/18/17 07:25 Eos # (Auto) 0.1 K/uL (0.0-0.7) 11/18/17 07:25 Baso # (Auto) 0.0 K/uL (0.0-0.2) 11/18/17 07:25 Neutrophils % (Manual) 71 % (50-75) 11/13/17 07:56 Band Neutrophils % 20 % (0-2) H* 11/13/17 07:56 Lymphocytes % (Manual) 3 % (20-40) L 11/13/17 07:56 Monocytes % (Manual) 3 % (0-10) 11/13/17 07:56 Eosinophils % (Manual) 2 % (0-4) 11/13/17 07:56 Basophils % (Manual) 1 % (0-2) 11/13/17 07:56 Toxic Granulation Present 11/13/17 07:56 Platelet Estimate Normal (NORMAL) 11/13/17 07:56 Large Platelets Present 11/13/17 07:56 RBC Morphology Normal 11/12/17 08:41 Polychromasia Slight 11/11/17 08:14 Hypochromasia (manual) Slight 11/11/17 08:14 Poikilocytosis (manual Slight 11/13/17 07:56 Anisocytosis (manual) Slight 11/13/17 07:56 Ovalocytes Slight 11/13/17 07:56 Derw Cells Slight 11/13/17 07:56 Retic Count 1.0 % (0.5-1.5) 11/13/17 07:56 Haptoglobin 322.1 mg/dL (30.0-200.0) H 11/13/17 13:54 PT 19.0 SECONDS (9.7-12.2) H 11/15/17 06:52 INR 1.7 11/15/17 06:52 APTT 26 SECONDS (21-34) 11/11/17 08:28 pO2 34 mm/Hg (30-55) 11/11/17 12:40 VBG pH 7.41 (7.32-7.43) 11/11/17 12:40 VBG pCO2 47 mmHg (40-60) 11/11/17 12:40 VBG HCO3 27.4 mmol/L 11/11/17 12:40 VBG Total CO2 31.2 mmol/L (22-28) H 11/11/17 12:40 VBG O2 Sat (Calc) 79.6 % (40-65) H 11/11/17 12:40 VBG Base Excess 4.3 mmol/L (0.0-2.0) H 11/11/17 12:40 VBG Potassium 3.8 mmol/L (3.6-5.2) 11/11/17 12:40 Sodium 138.0 mmol/l (132-148) 11/11/17 12:40 Chloride 106.0 mmol/L (98-107) 11/11/17 12:40 Glucose 121 mg/dl (65-105) H 11/11/17 12:40 Lactate 0.8 mmol/L (0.7-2.1) 11/11/17 12:40 FiO2 21 % 11/11/17 12:40 Sodium 136 mmol/L (132-148) 11/18/17 07:25 Potassium 4.1 mmol/L (3.6-5.2) 11/18/17 07:25 Chloride 101 mmol/L (98-107) 11/18/17 07:25 Carbon Dioxide 27 mmol/L (22-30) 11/18/17 07:25 Anion Gap 13 (10-20) 11/18/17 07:25 BUN 7 mg/dL (7-17) 11/18/17 07:25 Creatinine 0.5 mg/dL (0.7-1.2) L 11/18/17 07:25 Est GFR ( Amer) > 60 11/18/17 07:25 Est GFR (Non-Af Amer) > 60 11/18/17 07:25 POC Glucose (mg/dL) 150 mg/dL (65-110) H 11/18/17 11:13 Random Glucose 107 mg/dL (65-105) H 11/18/17 07:25 Calcium 8.5 mg/dl (8.6-10.4) L 11/18/17 07:25 Phosphorus 3.3 mg/dL (2.5-4.5) 11/18/17 07:25 Magnesium 2.2 mg/dL (1.6-2.3) 11/18/17 07:25 Iron 21 ug/dL (37-170) L 11/13/17 13:54 TIBC 139 ug/dL (250-450) L 11/13/17 13:54 % Saturation 15 (20-55) L 11/13/17 13:54 Ferritin 154.0 ng/mL 11/13/17 07:56 Total Bilirubin 0.2 mg/dL (0.2-1.3) 11/18/17 07:25 AST 33 U/L (14-36) 11/18/17 07:25 ALT 39 U/L (9-52) 11/18/17 07:25 Alkaline Phosphatase 70 U/L (38-126) 11/18/17 07:25 Troponin I < 0.0120 ng/mL (0.00-0.120) 11/11/17 08:14 Total Protein 5.4 g/dL (6.3-8.3) L 11/18/17 07:25 Albumin 2.6 g/dL (3.5-5.0) L 11/18/17 07:25 Globulin 2.8 gm/dL (2.2-3.9) 11/18/17 07:25 Albumin/Globulin Ratio 0.9 (1.0-2.1) L 11/18/17 07:25 Lipase 17 U/L (23-300) L 11/11/17 08:14 Folate 10.9 ng/mL 11/13/17 07:56 Venous Blood Potassium 3.8 mmol/L (3.6-5.2) 11/11/17 12:40 Urine Color Yellow (YELLOW) 11/11/17 21:36 Urine Clarity Clear (Clear) 11/11/17 21:36 Urine pH 6.0 (5.0-8.0) 11/11/17 21:36 Ur Specific [place] 1.010 (1.003-1.030) 11/11/17 21:36 Urine Protein Negative mg/dL (NEGATIVE) 11/11/17 21:36 Urine Glucose (UA) Normal mg/dL (Normal) 11/11/17 21:36 Urine Ketones Negative mg/dL (NEGATIVE) 11/11/17 21:36 Urine Blood 1+ (NEGATIVE) H 11/11/17 21:36 Urine Nitrate Negative (NEGATIVE) 11/11/17 21:36 Urine Bilirubin Negative (NEGATIVE) 11/11/17 21:36 Urine Urobilinogen Normal mg/dL (0.2-1.0) 11/11/17 21:36 Ur Leukocyte Esterase Neg Kiara/uL (Negative) 11/11/17 21:36 Urine WBC (Auto) 1 /hpf (0-5) 11/11/17 21:36 Urine RBC (Auto) 5 /hpf (0-3) H 11/11/17 21:36 Ur Squamous Epith Cells < 1 /hpf (0-5) 11/11/17 21:36 Urine Bacteria Rare (<OCC) 11/11/17 21:36 Stool Occult Blood Positive (NEGATIVE) H 11/12/17 07:24 Stool Leukocytes, Qual Positive (NEGATIVE) H 11/11/17 21:30 C. difficile Ag & Toxin Negative (NEGATIVE) 11/15/17 Unknown Attending/Attestation - Attestation I have personally seen and examined this patient.: Yes I have fully participated in the care of the patient.: Yes I have reviewed all pertinent clinical information, including history, physical exam and plan: Yes Notes (Text): Discharge instructions given in [place] Patient was explained about medication,diet and follow up
--- NOTE | 2017-11-25 14:41 | PQF ---
PROVIDER RESPONSE TEXT: Patient was septic due to pseudomembranous colitis. She was hypotensive,leukocytosis with bands and f ever. REVIEWER QUERY TEXT: Rule Out Sepsis Clarification Rule out Sepsis is documented in the Medical Record. Please clarify whether: -- Patient has sepsis - Please document confirmed, suspected or probable causative organism - Please document confirmed, suspected or probable localized infection - Please clarify if sepsis is related to a device - Please clarify if sepsis was present on admission -- Sepsis was ruled out (include corresponding diagnosis for patient?s clinical picture and treatment ) -- Patient had sepsis which is resolved -- Other, please specify The patient's Clinical Indicators include: Consult 11/11/17 Karri Sullivan MD - Admitted with SEPSIS, has hypotension, with severe Diarrhea , hypotensive with White count increased with severe bands. History and Physical report - Assessment - Sepsis Progress Note 11/12/17 - Assessment and Plan - Sepsis 11/11 WBC 14.9 H Query created by: Dottie Thomas on 11/19/2017 9:48 AM Electronically signed by: Archana Hamlin MD 11/25/2017 2:38 PM
== END 2017-11-18 14:42 | disposition home or self-care (01) | DRG 872 ==
LOC: C.ER 07:26 → C.9E 10:30 → C.3T 14:35
PROVIDERS: ADMIT Internal Medicine; ATTEND Internal Medicine
PROC: 0DBN8ZX Excision of Sigmoid Colon, Via Natural or Artificial Opening Endoscopic, Diagnostic (ICD-10-PCS; principal; 2017-11-15 13:15)
DX: A41.9 Sepsis, unspecified organism (principal); A04.72 Enterocolitis due to Clostridium difficile, not specified as recurrent; K57.30 Diverticulosis of large intestine without perforation or abscess without bleeding; K21.9 Gastro-esophageal reflux disease without esophagitis; I10 Essential (primary) hypertension; E87.6 Hypokalemia; E83.39 Other disorders of phosphorus metabolism; D64.9 Anemia, unspecified; K59.00 Constipation, unspecified; R19.5 Other fecal abnormalities